=== PATIENT | female | born 1975 | race African-American/Black ===

== ENCOUNTER 2016-12-19 12:25 | Inpatient (IN) | payer SELFPAY ==
[~2016-12-19] VITALS: Ht 162.6 cm; Wt 56.8 kg
--- NOTE | 2016-12-19 12:52 | EKG ---
[facility] [address] [place] [address] Test Date: 2016-12-19 Test Time: 12:42:11 Pat Name: YANETH GUPTA Department: Room: Gender: F Business Agent: : [id number] Requested By: CHANI RUBIO Order Number: [id number] Reading MD: Jose Aguilar Measurements Intervals [place] Rate: 93 P: 71 [place]: 124 QRS: 31 QRSD: 74 T: 39 QT: 398 QTc: 498 Interpretive Statements SINUS RHYTHM PROLONGED QT Electronically Signed On 12-19-2016 13:25:33 CDT by Jose Aguilar
[2016-12-19] MEDS ORDERED: LIDOCAINE/EPI/TETRACAINE TOPICAL GEL 3 ML. TP ONE (13:00)
[2016-12-19] MEDS ORDERED: DIPHTH,PERTUSS(ACELL),TET TOX 0.5 ML DISP.SYRIN. VAX IM ONE (13:00)
[2016-12-19] MEDS ORDERED: IV NORMAL SALINE 1000ML BAG 1,000 ML IV ONE (13:00)
--- NOTE | 2016-12-19 13:40 | RAD ---
Indication seizure, fall, closed head injury. Noncontrast images of the head were obtained. No prior imaging is available. The calvarium appears unremarkable. The visualized paranasal sinuses appear normal. No subdural or epidural hematoma is seen. There is no hemorrhage. There is no mass or midline shift. No acute finding is apparent. IMPRESSION: No acute or significant finding seen on noncontrast CT images of the head PQRS Compliance Statement: One or more of the following individualized dose reduction techniques were utilized for this examination: 1. Automated exposure control 2. Adjustment of the mA and/or kV according to patient size 3. Use of iterative reconstruction technique
[2016-12-19 13:53] LABS: BASO % 1 % (0-3); EOS % 0 % (0-3); HEMATOCRIT 39.6 % (36.0-47.0); HEMOGLOBIN 13.2 g/dL (12.0-15.5); LYMPH # 0.4 x10^3/uL (1.0-4.8); LYMPH % 9 % (24-48); MEAN CORPUSCULAR HEMOGLOBIN 38 pg (25-35); MEAN CORPUSCULAR HGB CONC 34 g/dL (31-37); MEAN CORPUSCULAR VOLUME 112 fL (79-100); MONO % 9 % (0-9); NEUT % 82 % (31-73); PLATELET COUNT 147 x10^3/uL (140-400); RED BLOOD COUNT 3.53 x10^6/uL (3.50-5.40); RED CELL DISTRIBUTION WIDTH 16.7 % (11.5-14.5)
[2016-12-19 14:05] LABS: CALCIUM 8.9 mg/dL (8.5-10.1); CREATININE 0.8 mg/dL (0.6-1.0); GFR 94.7; POTASSIUM 3.5 mmol/L (3.5-5.1)
[2016-12-19 14:09] LABS: ETHANOL < 10 mg/dL (0-10)
[2016-12-19 14:10] LABS: ALBUMIN 4.2 g/dL (3.4-5.0); ALBUMIN/GLOBULIN RATIO 0.9 (1.0-1.7); TOTAL BILIRUBIN 1.5 mg/dL (0.2-1.0); TOTAL PROTEIN 9.1 g/dL (6.4-8.2)
[2016-12-19 14:19] LABS: BILIRUBIN,URINE NEGATIVE (NEG); GLUCOSE,URINE NEGATIVE (NEG); NITRITE,URINE NEGATIVE (NEG); PH,URINE 5.5; PROTEIN,URINE 100 mg/dL (NEG-TRACE); UROBILINOGEN,URINE 0.2 mg/dL (0.2 mg/dL)
[2016-12-19 14:23] LABS: BARBITURATES NEG (NEG); BENZODIAZEPINES NEG (NEG); CANNABINOIDS NEG (NEG); COCAINE NEG (NEG); METHADONE NEG (NEG); OPIATES NEG (NEG); PHENCYCLIDINE NEG (NEG)
[2016-12-19 14:28] LABS: RBC,URINE 0 /HPF (0-2)
[2016-12-19 14:29] LABS: BACTERIA,URINE 0 /HPF (0-FEW); SQUAMOUS EPITHELIAL CELL,UR MOD /LPF
[2016-12-19] MEDS: amLODIPine BESYLATE 5 MG TABLET PO SCH (14:30)
[2016-12-19 15:20] LABS: PLT ESTIMATE ADEQUATE (ADEQUATE)
[2016-12-19 15:21] LABS: ANISOCYTOSIS SLIGHT; POLYCHROMASIA SLIGHT
[2016-12-19] MEDS ORDERED: ONDANSETRON PF 4 MG/2 ML VIAL. IV PRN ×2 (15:30→16:00)
[2016-12-19] MEDS ORDERED: MORPHINE SULFATE 2 MG/ML DISP.SYRIN. IV PRN (15:30)
[2016-12-19] MEDS ORDERED: ACETAMINOPHEN 325 MG TABLET. PO PRN ×2 (15:30→16:00)
[2016-12-19] MEDS ORDERED: AMLO1CAP10 PO (15:32)
[2016-12-19] MEDS ORDERED: hydrALAZINE 20 MG/ML VIAL. IVP PRN (16:00)
[2016-12-19] MEDS ORDERED: traMADol 50 MG TABLET PO PRN (16:00)
[2016-12-19] MEDS: MULTIVIT INFUSN,ADULT 4,VIT K 10 ML, THIAMINE 100 MG, FOLIC ACID 1 MG in IV NORMAL SALI... IV SCH (16:00)
--- NOTE | 2016-12-19 16:03 | PDOC1 ---
History and Physical Date of Admission Date of Admission 12/19/16 Identification/Chief Complaint Chief Complaint seizure Problems: Source Source: Patient History of Present Illness History of Present Illness 41yo F, heavy drinker , was sent by EMS for seizure. Pt drinks at least 1L of hard alcohol, vokha daily. Last time of heavy drinking was 2 days ago, she started to feel back and bl leg spasm, and tremors and then took 2 beers last night. Today, she was meeting with families at parking lot, standing, then suddenly fell backwards, hit head with open wound. She also has stiff body and extremities, foam liquid coming from mouth, for 7mins as per family, then woke up when EMS came, but cont confused for about 50min. Pt didnot bite tongue or lost bm/urine control. She felt ok before the fall, denies palpitation, lightheaded, chest pain. The longest time she was off alcohol was 1 year ago, 4 days, she only had tremors, never had seizure before. THe reason she stop drinking heavily for 2 days is "wants to get life back together). has HTN, but not taking meds for 1month 2/2 non compliance. Past Medical History Cardiovascular: HTN Past Surgical History Past Surgical History: No pertinent history Family History Family History: Hypertension Social History Smoke: No ALCOHOL: heavy Drugs: Marijuana Current Medications Current Medications Current Medications Medications (Trade) Dose Ordered Sig/Ashley Start Time Stop Time Status Last Admin Dose Admin Acetaminophen (Tylenol) 650 mg PRN Q6HRS PRN 12/19/16 16:00 UNV Chlordiazepoxide (Librium) 50 mg TID 12/19/16 21:00 UNV Diazepam (Valium) 5 mg PRN Q5MIN PRN 12/19/16 15:30 Diphtheria/ Tetanus/Acell Pertussis (Boostrix) 0.5 ml ONCE ONCE 12/19/16 13:00 12/19/16 13:14 DC 12/19/16 13:53 0.5 ML Lidocaine/ Epinephrine (Let Topical) 3 ml 1X ONCE 12/19/16 13:00 12/19/16 13:14 DC 12/19/16 13:54 3 ML Morphine Sulfate 2 mg PRN Q2HR PRN 12/19/16 15:30 12/20/16 15:29 Multivitamins 10 ml/Thiamine HCl 100 mg/Folic Acid 1 mg/Sodium Chloride 1,011.2 ml @ 100 mls/ hr DAILY 12/19/16 16:00 12/23/16 19:07 Non-Formulary Medication 1 cap DAILY 12/20/16 09:00 UNV Ondansetron HCl (Zofran) 4 mg PRN Q6HRS PRN 12/19/16 16:00 UNV Sodium Chloride 1,000 ml @ 1,000 mls/hr 1X ONCE 12/19/16 13:00 12/19/16 13:59 DC 12/19/16 13:52 1,000 MLS/HR Tramadol HCl (Ultram) 50 mg PRN Q6HRS PRN 12/19/16 16:00 UNV Allergies Allergies Allergies Coded Allergies Type Severity Reaction Last Updated Verified Penicillins Allergy Intermediate 12/19/16 No ROS Review of System CONSTITUTIONAL: No fever or chills EYES: No recent changes SKIN: No rash or itching CARDIOVASCULAR: No chest pain, syncope, palpitations, or edema RESPIRATORY: No SOB or cough GASTROINTESTINAL: No nausea, vomiting or abdominal pain NEUROLOGICAL: No headaches or weakness ENDOCRINE: No cold or heat intolerance GENITOURINARY: No urgency or frequency of urination MUSCULOSKELETAL: No back pain or joint pain LYMPHATICS: No enlarged lymph nodes PSYCHIATRIC: No anxiety or depression Physical Exam Physical Exam GEN.: No apparent distress. Alert and oriented. HEENT: Head is normocephalic, occipital has a open wound with 2 néstor. NECK: Supple. LUNGS: Clear to auscultation. HEART: RRR, S1, S2 present. Peripheral pulses intact ABDOMEN: Soft, nontender. Positive bowel sounds. EXTREMITIES: Without any cyanosis. bl fingers tremors. NEUROLOGIC: Normal speech, normal tone PSYCHIATRIC: Normal affect, normal mood. SKIN: No ulcerations Vitals Vitals Vital Signs Date Time Temp Pulse Resp B/P (MAP) Pulse Ox O2 Delivery O2 Flow Rate FiO2 12/19/16 14:03 110 145/101 (116) 12/19/16 13:33 28 97 Room Air 12/19/16 12:25 98.6 98.6 Labs Labs Laboratory Tests Test 12/19/16 13:11 12/19/16 13:45 12/19/16 14:02 Bedside Urine HCG, Qualitative Hcg negative (Negative) White Blood Count 5.0 x10^3/uL (4.0-11.0) Red Blood Count 3.53 x10^6/uL (3.50-5.40) Hemoglobin 13.2 g/dL (12.0-15.5) Hematocrit 39.6 % (36.0-47.0) Mean Corpuscular Volume 112 fL (79-100) Mean Corpuscular Hemoglobin 38 pg (25-35) Mean Corpuscular Hemoglobin Concent 34 g/dL (31-37) Red Cell Distribution Width 16.7 % (11.5-14.5) Platelet Count 147 x10^3/uL (140-400) Neutrophils (%) (Auto) 82 % (31-73) Lymphocytes (%) (Auto) 9 % (24-48) Monocytes (%) (Auto) 9 % (0-9) Eosinophils (%) (Auto) 0 % (0-3) Basophils (%) (Auto) 1 % (0-3) Neutrophils # (Auto) 4.0 x10^3uL (1.8-7.7) Lymphocytes # (Auto) 0.4 x10^3/uL (1.0-4.8) Monocytes # (Auto) 0.4 x10^3/uL (0.0-1.1) Eosinophils # (Auto) 0.0 x10^3/uL (0.0-0.7) Basophils # (Auto) 0.0 x10^3/uL (0.0-0.2) Platelet Estimate Adequate (ADEQUATE) Giant Platelets Few Polychromasia Slight Basophilic Stippling Present Anisocytosis Slight Macrocytosis Mod Pappenheimer Bodies Occ Sodium Level 135 mmol/L (136-145) Potassium Level 3.5 mmol/L (3.5-5.1) Chloride Level 92 mmol/L (98-107) Carbon Dioxide Level 23 mmol/L (21-32) Anion Gap 20 (6-14) Blood Urea Nitrogen 7 mg/dL (7-20) Creatinine 0.8 mg/dL (0.6-1.0) Estimated GFR (Cockcroft-Gault) 94.7 BUN/Creatinine Ratio 9 (6-20) Glucose Level 107 mg/dL (70-99) Calcium Level 8.9 mg/dL (8.5-10.1) Total Bilirubin 1.5 mg/dL (0.2-1.0) Aspartate Amino Transf (AST/SGOT) 272 U/L (15-37) Alanine Aminotransferase (ALT/SGPT) 81 U/L (14-59) Alkaline Phosphatase 116 U/L (46-116) Total Protein 9.1 g/dL (6.4-8.2) Albumin 4.2 g/dL (3.4-5.0) Albumin/Globulin Ratio 0.9 (1.0-1.7) Salicylates Level < 2.8 mg/dL (2.8-20.0) Salicylate Last Dose Date Unk Salicylate Last Dose Time Unk Acetaminophen Level < 10 mcg/ml (10-30) Acetaminophen Last Dose Date Unk Acetaminophen Last Dose Time Unk Ethyl Alcohol Level < 10 mg/dL (0-10) Urine Collection Type Unknown Urine Color Yellow Urine Clarity Clear Urine pH 5.5 Urine Specific [place] 1.015 Urine Protein 100 mg/dL (NEG-TRACE) Urine Glucose (UA) Negative mg/dL (NEG) Urine Ketones (Stick) >=80 mg/dL (NEG) Urine Blood Moderate (NEG) Urine Nitrite Negative (NEG) Urine Bilirubin Negative (NEG) Urine Urobilinogen Dipstick 0.2 mg/dL (0.2 mg/dL) Urine Leukocyte Esterase Small (NEG) Urine RBC 0 /HPF (0-2) Urine WBC 11-20 /HPF (0-4) Urine Squamous Epithelial Cells Mod /LPF Urine Bacteria 0 /HPF (0-FEW) Urine Hyaline Casts Moderate /HPF Urine Mucus Mod /LPF Urine Opiates Screen Neg (NEG) Urine Methadone Screen Neg (NEG) Urine Barbiturates Neg (NEG) Urine Phencyclidine Screen Neg (NEG) Urine Amphetamine/Methamphetamine Neg (NEG) Urine Benzodiazepines Screen Neg (NEG) Urine Cocaine Screen Neg (NEG) Urine Cannabinoids Screen Neg (NEG) Urine Ethyl Alcohol Neg (NEG) Laboratory Tests Test 12/19/16 13:11 12/19/16 13:45 12/19/16 14:02 Bedside Urine HCG, Qualitative Hcg negative (Negative) White Blood Count 5.0 x10^3/uL (4.0-11.0) Red Blood Count 3.53 x10^6/uL (3.50-5.40) Hemoglobin 13.2 g/dL (12.0-15.5) Hematocrit 39.6 % (36.0-47.0) Mean Corpuscular Volume 112 fL (79-100) Mean Corpuscular Hemoglobin 38 pg (25-35) Mean Corpuscular Hemoglobin Concent 34 g/dL (31-37) Red Cell Distribution Width 16.7 % (11.5-14.5) Platelet Count 147 x10^3/uL (140-400) Neutrophils (%) (Auto) 82 % (31-73) Lymphocytes (%) (Auto) 9 % (24-48) Monocytes (%) (Auto) 9 % (0-9) Eosinophils (%) (Auto) 0 % (0-3) Basophils (%) (Auto) 1 % (0-3) Neutrophils # (Auto) 4.0 x10^3uL (1.8-7.7) Lymphocytes # (Auto) 0.4 x10^3/uL (1.0-4.8) Monocytes # (Auto) 0.4 x10^3/uL (0.0-1.1) Eosinophils # (Auto) 0.0 x10^3/uL (0.0-0.7) Basophils # (Auto) 0.0 x10^3/uL (0.0-0.2) Platelet Estimate Adequate (ADEQUATE) Giant Platelets Few Polychromasia Slight Basophilic Stippling Present Anisocytosis Slight Macrocytosis Mod Pappenheimer Bodies Occ Sodium Level 135 mmol/L (136-145) Potassium Level 3.5 mmol/L (3.5-5.1) Chloride Level 92 mmol/L (98-107) Carbon Dioxide Level 23 mmol/L (21-32) Anion Gap 20 (6-14) Blood Urea Nitrogen 7 mg/dL (7-20) Creatinine 0.8 mg/dL (0.6-1.0) Estimated GFR (Cockcroft-Gault) 94.7 BUN/Creatinine Ratio 9 (6-20) Glucose Level 107 mg/dL (70-99) Calcium Level 8.9 mg/dL (8.5-10.1) Total Bilirubin 1.5 mg/dL (0.2-1.0) Aspartate Amino Transf (AST/SGOT) 272 U/L (15-37) Alanine Aminotransferase (ALT/SGPT) 81 U/L (14-59) Alkaline Phosphatase 116 U/L (46-116) Total Protein 9.1 g/dL (6.4-8.2) Albumin 4.2 g/dL (3.4-5.0) Albumin/Globulin Ratio 0.9 (1.0-1.7) Salicylates Level < 2.8 mg/dL (2.8-20.0) Salicylate Last Dose Date Unk Salicylate Last Dose Time Unk Acetaminophen Level < 10 mcg/ml (10-30) Acetaminophen Last Dose Date Unk Acetaminophen Last Dose Time Unk Ethyl Alcohol Level < 10 mg/dL (0-10) Urine Collection Type Unknown Urine Color Yellow Urine Clarity Clear Urine pH 5.5 Urine Specific [place] 1.015 Urine Protein 100 mg/dL (NEG-TRACE) Urine Glucose (UA) Negative mg/dL (NEG) Urine Ketones (Stick) >=80 mg/dL (NEG) Urine Blood Moderate (NEG) Urine Nitrite Negative (NEG) Urine Bilirubin Negative (NEG) Urine Urobilinogen Dipstick 0.2 mg/dL (0.2 mg/dL) Urine Leukocyte Esterase Small (NEG) Urine RBC 0 /HPF (0-2) Urine WBC 11-20 /HPF (0-4) Urine Squamous Epithelial Cells Mod /LPF Urine Bacteria 0 /HPF (0-FEW) Urine Hyaline Casts Moderate /HPF Urine Mucus Mod /LPF Urine Opiates Screen Neg (NEG) Urine Methadone Screen Neg (NEG) Urine Barbiturates Neg (NEG) Urine Phencyclidine Screen Neg (NEG) Urine Amphetamine/Methamphetamine Neg (NEG) Urine Benzodiazepines Screen Neg (NEG) Urine Cocaine Screen Neg (NEG) Urine Cannabinoids Screen Neg (NEG) Urine Ethyl Alcohol Neg (NEG) VTE Prophylaxis Ordered VTE Prophylaxis Devices: Yes VTE Pharmacological Prophylaxi: Yes Assessment/Plan Assessment/Plan 1 seizure, likely 2/2 alcohol withdrawl 2. accelerated HTN 3. alcohol hepatitis 4. drug abuse with marijuana, off for 1 month 5. alcoholism 6. open head skin wound post fall plan; neuro consult add librium for withdrawl prevention, valium prn ivf labs daily educated pt and family at bedside resume home HTN meds, hydralazine prn dvt ppx simple wound care JOSE JUAN GUTIÉRREZ MD December 19, 2016 16:03
[2016-12-19] MEDS: chlordiazePOXIDE HCL 25 MG CAPSULE PO SCH ×2 (16:05→21:30)
[2016-12-19 16:08] LABS: MAGNESIUM 1.1 mg/dL (1.8-2.4); PHOSPHORUS 2.2 mg/dL (2.6-4.7)
--- NOTE | 2016-12-19 16:14 | PDOC2 ---
NEUROLOGY CONSULT Date of Admission Date of Admission DATE: 12/19/16 TIME: 16:11 Reason for Consult Reason for Consult: Alcohol-related seizure Referring Physician Referring Physician: Dr. Coello Source Source: Chart review, Patient History of Present Illness History of Present Illness The patient is a 41-year-old right-handed female who was in a parking lot talking to her family when she fell backwards striking her head and she had at least a 7 minute seizure. She drinks alcohol heavily but stopped it 2 days ago because she is trying to get her life back together. Actually, she had 2 beers yesterday because she was having the shakes. There is no prior history of seizure, alcohol withdrawal syndrome, stroke, or head injury. Family History Family History: No pertinent hx Social History Social History Stopped drinking 2 days ago, occasional marijuana Current Medications Current Medications Current Medications Diphtheria/ Tetanus/Acell Pertussis (Boostrix) 0.5 ml ONCE ONCE VAX IM Last administered on 12/19/16 13:53; Start 12/19/16 at 13:00; Stop 12/19/16 at 13:14; Status DC Lidocaine/ Epinephrine (Let Topical) 3 ml 1X ONCE TP Last administered on 13:54; Start 12/19/16 at 13:00; Stop 12/19/16 at 13:14; Status DC Diazepam (Valium) 5 mg 1X ONCE IV Last administered on 12/19/16 13:50; Start 12/19/16 at 13:00; Stop 12/19/16 at 13:14; Status DC Sodium Chloride 1,000 ml @ 1,000 mls/hr 1X ONCE IV Last administered on 13:52; Start 12/19/16 at 13:00; Stop 12/19/16 at 13:59; Status DC Diazepam (Valium) 5 mg PRN Q5MIN PRN IV COMM Last administered on 12/19/16 15: 24; Start 12/19/16 at 13:15 Ondansetron HCl (Zofran) 4 mg PRN Q8HRS PRN IV NAUSEA/VOMITING; Start 12/19/16 at 15:30; Stop 12/20/16 at 15:29 Morphine Sulfate 2 mg PRN Q2HR PRN IV PAIN; Start 12/19/16 at 15:30; Stop at 15:29 Acetaminophen (Tylenol) 650 mg PRN Q4HRS PRN PO FEVER; Start 12/19/16 at 15:30; Stop 12/20/16 at 15:29 Multivitamins 10 ml/Thiamine HCl 100 mg/Folic Acid 1 mg/Sodium Chloride 1,011.2 ml @ 100 mls/ hr DAILY IV ; Start 12/19/16 at 16:00; Stop 12/23/16 at 19:07 Diazepam (Valium) 5 mg PRN Q5MIN PRN IV COMM; Start 12/19/16 at 15:30 Non-Formulary Medication 1 cap DAILY PO ; Start 12/20/16 at 09:00; Stop 12/20/16 at 09:00; Status DC Chlordiazepoxide (Librium) 50 mg TID PO ; Start 12/19/16 at 16:05 Acetaminophen (Tylenol) 650 mg PRN Q6HRS PRN PO FEVER; Start 12/19/16 at 16:00 Ondansetron HCl (Zofran) 4 mg PRN Q6HRS PRN IV NAUSEA/VOMITING; Start 12/19/16 at 16:00 Tramadol HCl (Ultram) 50 mg PRN Q6HRS PRN PO PAIN; Start 12/19/16 at 16:00 Amlodipine Besylate (Norvasc) 5 mg DAILY PO Last administered on 12/19/16t 14:30 ; Start 12/19/16 at 14:30 Enoxaparin Sodium (Lovenox 40mg Syringe) 40 mg DAILY08 SQ ; Start 12/20/16 at 08: 00 Hydralazine HCl (Apresoline) 10 mg PRN Q4HRS PRN IVP ELEVATED BP, SEE COMMENTS ; Start 12/19/16 at 16:00 Lisinopril (Prinivil) 20 mg DAILY PO ; Start 12/19/16 at 16:30 Active Scripts Active Reported Amlodipine-Benazepril 5-20 Mg (Amlodipine Besylate/Benazepril) 1 Each Capsule 1 Cap PO DAILY Allergies Allergies: Coded Allergies: Penicillins (Unverified Allergy, Intermediate, 12/19/16) ROS Review of System Patient denies fevers, chills, weight loss, dyspnea, angina, abdominal pain, change in bowels, or dysuria. 14 point review of systems is negative. Physical Exam Physical Examination PHYSICAL EXAMINATION: Vital signs: see above. General appearance is normal and in no acute distress. HEENT: Normocephalic. Scalp laceration, occiput. Eyes, nose, ears, and throat are unremarkable. Neck is supple. No lymphadenopathy. No bruits are heard over the carotid artery. No crepitus. NEUROLOGICAL EXAMINATION: Mental Status Examination: Alert. Oriented to time, place, and person. Answers questions and follows commends. Pupils are equal round and reactive to light and accommodation. Funduscopic exam: No papilledema. Extraocular movements are intact. Visual field exam shows no defect on the direct confrontation. No motor or sensory deficits on the facial exam. Uvula in the midline and the soft palate elevated symmetrically. No deviation of the tongue to any direction. Gross hearing is normal. Shoulder shrug normal. Muscle tone is normal. Muscle strength is 5. There is mild tremulousness. Deep tendon reflexes are 2+ all around. Plantar reflex is with flexion response bilaterally. [id number] test performance is accurate. Tandem walk test is accurate. Alternative movements are accurate. Romberg test is negative. Gait is normal. Sensory exam shows no deficits. No cerebellar signs are elicited. Vitals VITALS Vital Signs Date Time Temp Pulse Resp B/P (MAP) Pulse Ox O2 Delivery O2 Flow Rate FiO2 12/19/16 14:30 104 133/89 12/19/16 13:33 28 97 Room Air 12/19/16 12:25 98.6 98.6 Labs Labs Laboratory Tests Test 12/19/16 13:11 12/19/16 13:45 12/19/16 14:02 Bedside Urine HCG, Qualitative Hcg negative (Negative) White Blood Count 5.0 x10^3/uL (4.0-11.0) Red Blood Count 3.53 x10^6/uL (3.50-5.40) Hemoglobin 13.2 g/dL (12.0-15.5) Hematocrit 39.6 % (36.0-47.0) Mean Corpuscular Volume 112 fL (79-100) Mean Corpuscular Hemoglobin 38 pg (25-35) Mean Corpuscular Hemoglobin Concent 34 g/dL (31-37) Red Cell Distribution Width 16.7 % (11.5-14.5) Platelet Count 147 x10^3/uL (140-400) Neutrophils (%) (Auto) 82 % (31-73) Lymphocytes (%) (Auto) 9 % (24-48) Monocytes (%) (Auto) 9 % (0-9) Eosinophils (%) (Auto) 0 % (0-3) Basophils (%) (Auto) 1 % (0-3) Neutrophils # (Auto) 4.0 x10^3uL (1.8-7.7) Lymphocytes # (Auto) 0.4 x10^3/uL (1.0-4.8) Monocytes # (Auto) 0.4 x10^3/uL (0.0-1.1) Eosinophils # (Auto) 0.0 x10^3/uL (0.0-0.7) Basophils # (Auto) 0.0 x10^3/uL (0.0-0.2) Platelet Estimate Adequate (ADEQUATE) Giant Platelets Few Polychromasia Slight Basophilic Stippling Present Anisocytosis Slight Macrocytosis Mod Pappenheimer Bodies Occ Sodium Level 135 mmol/L (136-145) Potassium Level 3.5 mmol/L (3.5-5.1) Chloride Level 92 mmol/L (98-107) Carbon Dioxide Level 23 mmol/L (21-32) Anion Gap 20 (6-14) Blood Urea Nitrogen 7 mg/dL (7-20) Creatinine 0.8 mg/dL (0.6-1.0) Estimated GFR (Cockcroft-Gault) 94.7 BUN/Creatinine Ratio 9 (6-20) Glucose Level 107 mg/dL (70-99) Calcium Level 8.9 mg/dL (8.5-10.1) Phosphorus Level 2.2 mg/dL (2.6-4.7) Magnesium Level 1.1 mg/dL (1.8-2.4) Total Bilirubin 1.5 mg/dL (0.2-1.0) Aspartate Amino Transf (AST/SGOT) 272 U/L (15-37) Alanine Aminotransferase (ALT/SGPT) 81 U/L (14-59) Alkaline Phosphatase 116 U/L (46-116) Total Protein 9.1 g/dL (6.4-8.2) Albumin 4.2 g/dL (3.4-5.0) Albumin/Globulin Ratio 0.9 (1.0-1.7) Salicylates Level < 2.8 mg/dL (2.8-20.0) Salicylate Last Dose Date Unk Salicylate Last Dose Time Unk Acetaminophen Level < 10 mcg/ml (10-30) Acetaminophen Last Dose Date Unk Acetaminophen Last Dose Time Unk Ethyl Alcohol Level < 10 mg/dL (0-10) Urine Collection Type Unknown Urine Color Yellow Urine Clarity Clear Urine pH 5.5 Urine Specific [place] 1.015 Urine Protein 100 mg/dL (NEG-TRACE) Urine Glucose (UA) Negative mg/dL (NEG) Urine Ketones (Stick) >=80 mg/dL (NEG) Urine Blood Moderate (NEG) Urine Nitrite Negative (NEG) Urine Bilirubin Negative (NEG) Urine Urobilinogen Dipstick 0.2 mg/dL (0.2 mg/dL) Urine Leukocyte Esterase Small (NEG) Urine RBC 0 /HPF (0-2) Urine WBC 11-20 /HPF (0-4) Urine Squamous Epithelial Cells Mod /LPF Urine Bacteria 0 /HPF (0-FEW) Urine Hyaline Casts Moderate /HPF Urine Mucus Mod /LPF Urine Opiates Screen Neg (NEG) Urine Methadone Screen Neg (NEG) Urine Barbiturates Neg (NEG) Urine Phencyclidine Screen Neg (NEG) Urine Amphetamine/Methamphetamine Neg (NEG) Urine Benzodiazepines Screen Neg (NEG) Urine Cocaine Screen Neg (NEG) Urine Cannabinoids Screen Neg (NEG) Urine Ethyl Alcohol Neg (NEG) Laboratory Tests Test 12/19/16 13:11 12/19/16 13:45 12/19/16 14:02 Bedside Urine HCG, Qualitative Hcg negative (Negative) White Blood Count 5.0 x10^3/uL (4.0-11.0) Red Blood Count 3.53 x10^6/uL (3.50-5.40) Hemoglobin 13.2 g/dL (12.0-15.5) Hematocrit 39.6 % (36.0-47.0) Mean Corpuscular Volume 112 fL (79-100) Mean Corpuscular Hemoglobin 38 pg (25-35) Mean Corpuscular Hemoglobin Concent 34 g/dL (31-37) Red Cell Distribution Width 16.7 % (11.5-14.5) Platelet Count 147 x10^3/uL (140-400) Neutrophils (%) (Auto) 82 % (31-73) Lymphocytes (%) (Auto) 9 % (24-48) Monocytes (%) (Auto) 9 % (0-9) Eosinophils (%) (Auto) 0 % (0-3) Basophils (%) (Auto) 1 % (0-3) Neutrophils # (Auto) 4.0 x10^3uL (1.8-7.7) Lymphocytes # (Auto) 0.4 x10^3/uL (1.0-4.8) Monocytes # (Auto) 0.4 x10^3/uL (0.0-1.1) Eosinophils # (Auto) 0.0 x10^3/uL (0.0-0.7) Basophils # (Auto) 0.0 x10^3/uL (0.0-0.2) Platelet Estimate Adequate (ADEQUATE) Giant Platelets Few Polychromasia Slight Basophilic Stippling Present Anisocytosis Slight Macrocytosis Mod Pappenheimer Bodies Occ Sodium Level 135 mmol/L (136-145) Potassium Level 3.5 mmol/L (3.5-5.1) Chloride Level 92 mmol/L (98-107) Carbon Dioxide Level 23 mmol/L (21-32) Anion Gap 20 (6-14) Blood Urea Nitrogen 7 mg/dL (7-20) Creatinine 0.8 mg/dL (0.6-1.0) Estimated GFR (Cockcroft-Gault) 94.7 BUN/Creatinine Ratio 9 (6-20) Glucose Level 107 mg/dL (70-99) Calcium Level 8.9 mg/dL (8.5-10.1) Phosphorus Level 2.2 mg/dL (2.6-4.7) Magnesium Level 1.1 mg/dL (1.8-2.4) Total Bilirubin 1.5 mg/dL (0.2-1.0) Aspartate Amino Transf (AST/SGOT) 272 U/L (15-37) Alanine Aminotransferase (ALT/SGPT) 81 U/L (14-59) Alkaline Phosphatase 116 U/L (46-116) Total Protein 9.1 g/dL (6.4-8.2) Albumin 4.2 g/dL (3.4-5.0) Albumin/Globulin Ratio 0.9 (1.0-1.7) Salicylates Level < 2.8 mg/dL (2.8-20.0) Salicylate Last Dose Date Unk Salicylate Last Dose Time Unk Acetaminophen Level < 10 mcg/ml (10-30) Acetaminophen Last Dose Date Unk Acetaminophen Last Dose Time Unk Ethyl Alcohol Level < 10 mg/dL (0-10) Urine Collection Type Unknown Urine Color Yellow Urine Clarity Clear Urine pH 5.5 Urine Specific [place] 1.015 Urine Protein 100 mg/dL (NEG-TRACE) Urine Glucose (UA) Negative mg/dL (NEG) Urine Ketones (Stick) >=80 mg/dL (NEG) Urine Blood Moderate (NEG) Urine Nitrite Negative (NEG) Urine Bilirubin Negative (NEG) Urine Urobilinogen Dipstick 0.2 mg/dL (0.2 mg/dL) Urine Leukocyte Esterase Small (NEG) Urine RBC 0 /HPF (0-2) Urine WBC 11-20 /HPF (0-4) Urine Squamous Epithelial Cells Mod /LPF Urine Bacteria 0 /HPF (0-FEW) Urine Hyaline Casts Moderate /HPF Urine Mucus Mod /LPF Urine Opiates Screen Neg (NEG) Urine Methadone Screen Neg (NEG) Urine Barbiturates Neg (NEG) Urine Phencyclidine Screen Neg (NEG) Urine Amphetamine/Methamphetamine Neg (NEG) Urine Benzodiazepines Screen Neg (NEG) Urine Cocaine Screen Neg (NEG) Urine Cannabinoids Screen Neg (NEG) Urine Ethyl Alcohol Neg (NEG) Images Images CT head: Noncontrast images of the head were obtained. No prior imaging is available. The calvarium appears unremarkable. The visualized paranasal sinuses appear normal. No subdural or epidural hematoma is seen. There is no hemorrhage. There is no mass or midline shift. No acute finding is apparent. IMPRESSION: No acute or significant finding seen on noncontrast CT images of the head Assessment/Plan Assessment/Plan Impression: Alcohol-related seizure Scalp laceration Recommendation: Agree with your management. EEG and MRI would not private branch exchange installer given that this is obviously a provoked seizure. Discussed seizure precautions with patient, including no driving for 6 months seizure-free. Thank you for letting me help with the patient's care BELGICA BARKSDALE MD December 19, 2016 16:14
[2016-12-19] MEDS ORDERED: MAGNESIUM SULFATE 4GM 100 ML IV ONE (16:15)
[2016-12-19] MEDS: LISINOPRIL 20 MG TABLET PO SCH (16:30)
[2016-12-19 16:33] VITALS: BP 130/90
[2016-12-19 16:34] VITALS: BP 130/90
--- NOTE | 2016-12-19 16:52 | PHYS DOC ---
Past Medical History Past Medical History: Hypertension Past Surgical History: Hysterectomy Alcohol Use: Heavy Drug Use: None Adult General Chief Complaint Chief Complaint: SEIZURE HPI HPI Patient is a 41 year old female who presents with seizure. The patient states she has history of heavy alcohol use, consuming at least one half bottle of hard liquor daily. Last drink was 2 days ago. Just prior to arrival she was with family in a gravel parking lot, fell to the ground, experienced 3-5 minute generalized tonic-clonic clonic seizure. Was postictal after the seizure ended. Denies bowel or bladder incontinence, denies tongue biting. Complains of headache, denies neck pain. Denies any previous attempts to cut back on alcohol , no previous withdrawal symptoms. Denies use of street drugs. She is visiting from [place] for a family reunion. Has medical history of hypertension. Review of Systems Review of Systems Constitutional: Denies fever or chills Eyes: Denies change in visual acuity HENT: Denies nasal congestion or sore throat Respiratory: Denies cough or shortness of breath Cardiovascular: Denies chest pain or edema GI: Denies abdominal pain, nausea, vomiting, or diarrhea : Denies dysuria or hematuria Musculoskeletal: Denies back pain or joint pain Integument: Denies rash or skin lesions Neurologic: Reports seizure & headache. Denies focal weakness or sensory changes Current Medications Current Medications Current Medications Medications (Trade) Dose Ordered Sig/Ashley Start Time Stop Time Status Last Admin Dose Admin Diazepam (Valium) 5 mg PRN Q5MIN PRN 12/19/16 13:15 12/19/16 15:24 5 MG Diphtheria/ Tetanus/Acell Pertussis (Boostrix) 0.5 ml ONCE ONCE 12/19/16 13:00 12/19/16 13:14 DC 12/19/16 13:53 0.5 ML Lidocaine/ Epinephrine (Let Topical) 3 ml 1X ONCE 12/19/16 13:00 12/19/16 13:14 DC 12/19/16 13:54 3 ML Sodium Chloride 1,000 ml @ 1,000 mls/hr 1X ONCE 12/19/16 13:00 12/19/16 13:59 DC 12/19/16 13:52 1,000 MLS/HR Allergies Allergies Allergies Coded Allergies Type Severity Reaction Last Updated Verified Penicillins Allergy Intermediate 12/19/16 No Physical Exam Physical Exam Constitutional: Well developed, well nourished, no acute distress, non-toxic appearance. Tremulous HENT: Normocephalic, 3 cm laceration to occiput, bilateral external ears normal , oropharynx moist, nose normal. Eyes: PERRLA, EOMI, conjunctiva normal, no discharge. Neck: supple, no stridor. No midline c-spine tenderness. Cardiovascular: RRR, no murmurs, no edema. Lungs & Thorax: LCTAB, no wheezing, no respiratory distress. Abdomen: soft, nontender, nondistended. Skin: Warm, dry, no erythema, no rash. Back: No spinal tenderness or step offs. Extremities: No deformity or tenderness, no edema. Neurologic: Alert and oriented X 3, CN2-12 grossly intact, symmetric strength/ sensation to UE & LE, no focal deficits noted. Psychologic: Affect normal, judgement normal, mood normal. Current Patient Data Vital Signs Vital Signs Date Time Temp Pulse Resp B/P (MAP) Pulse Ox O2 Delivery O2 Flow Rate FiO2 12/19/16 14:03 110 145/101 (116) 12/19/16 13:33 28 97 Room Air 12/19/16 12:25 98.6 98.6 Lab Values Laboratory Tests Test 12/19/16 13:11 12/19/16 13:45 12/19/16 14:02 POC Urine HCG, Qualitative Hcg negative (Negative) White Blood Count 5.0 x10^3/uL (4.0-11.0) Red Blood Count 3.53 x10^6/uL (3.50-5.40) Hemoglobin 13.2 g/dL (12.0-15.5) Hematocrit 39.6 % (36.0-47.0) Mean Corpuscular Volume 112 fL (79-100) H Mean Corpuscular Hemoglobin 38 pg (25-35) H Mean Corpuscular Hemoglobin Concent 34 g/dL (31-37) Red Cell Distribution Width 16.7 % (11.5-14.5) H Platelet Count 147 x10^3/uL (140-400) Neutrophils (%) (Auto) 82 % (31-73) H Lymphocytes (%) (Auto) 9 % (24-48) L Monocytes (%) (Auto) 9 % (0-9) Eosinophils (%) (Auto) 0 % (0-3) Basophils (%) (Auto) 1 % (0-3) Neutrophils # (Auto) 4.0 x10^3uL (1.8-7.7) Lymphocytes # (Auto) 0.4 x10^3/uL (1.0-4.8) L Monocytes # (Auto) 0.4 x10^3/uL (0.0-1.1) Eosinophils # (Auto) 0.0 x10^3/uL (0.0-0.7) Basophils # (Auto) 0.0 x10^3/uL (0.0-0.2) Platelet Estimate Adequate (ADEQUATE) Giant Platelets Few Polychromasia Slight Basophilic Stippling Present Anisocytosis Slight Macrocytosis Mod Pappenheimer Bodies Occ Sodium Level 135 mmol/L (136-145) L Potassium Level 3.5 mmol/L (3.5-5.1) Chloride Level 92 mmol/L (98-107) L Carbon Dioxide Level 23 mmol/L (21-32) Anion Gap 20 (6-14) H Blood Urea Nitrogen 7 mg/dL (7-20) Creatinine 0.8 mg/dL (0.6-1.0) Estimated GFR (Cockcroft-Gault) 94.7 BUN/Creatinine Ratio 9 (6-20) Glucose Level 107 mg/dL (70-99) H Calcium Level 8.9 mg/dL (8.5-10.1) Phosphorus Level 2.2 mg/dL (2.6-4.7) L Magnesium Level 1.1 mg/dL (1.8-2.4) L Total Bilirubin 1.5 mg/dL (0.2-1.0) H Aspartate Amino Transferase (AST) 272 U/L (15-37) H Alanine Aminotransferase (ALT) 81 U/L (14-59) H Alkaline Phosphatase 116 U/L (46-116) Total Protein 9.1 g/dL (6.4-8.2) H Albumin 4.2 g/dL (3.4-5.0) Albumin/Globulin Ratio 0.9 (1.0-1.7) L Salicylates Level < 2.8 mg/dL (2.8-20.0) L Salicylate Last Dose Date Unk Salicylate Last Dose Time Unk Acetaminophen Level < 10 mcg/ml (10-30) L Acetaminophen Last Dose Date Unk Acetaminophen Last Dose Time Unk Ethyl Alcohol Level < 10 mg/dL (0-10) Urine Collection Type Unknown Urine Color Yellow Urine Clarity Clear Urine pH 5.5 Urine Specific [place] 1.015 Urine Protein 100 mg/dL (NEG-TRACE) Urine Glucose (UA) Negative mg/dL (NEG) Urine Ketones (Stick) >=80 mg/dL (NEG) Urine Blood Moderate (NEG) Urine Nitrite Negative (NEG) Urine Bilirubin Negative (NEG) Urine Urobilinogen Dipstick 0.2 mg/dL (0.2 mg/dL) Urine Leukocyte Esterase Small (NEG) Urine RBC 0 /HPF (0-2) Urine WBC 11-20 /HPF (0-4) Urine Squamous Epithelial Cells Mod /LPF Urine Bacteria 0 /HPF (0-FEW) Urine Hyaline Casts Moderate /HPF Urine Mucus Mod /LPF Urine Opiates Screen Neg (NEG) Urine Methadone Screen Neg (NEG) Urine Barbiturates Neg (NEG) Urine Phencyclidine Screen Neg (NEG) Urine Amphetamine/Methamphetamine Neg (NEG) Urine Benzodiazepines Screen Neg (NEG) Urine Cocaine Screen Neg (NEG) Urine Cannabinoids Screen Neg (NEG) Urine Ethyl Alcohol Neg (NEG) Laboratory Tests 12/19/16 13:45 Laboratory Tests 12/19/16 13:45 EKG EKG interpreted by me: NSR rate 93, no acute ST/T wave changes, QTc prolonged 498 ms, no ectopy.[] Radiology/Procedures Radiology/Procedures PROCEDURE: CT HEAD WO CONTRAST Indication seizure, fall, closed head injury. Noncontrast images of the head were obtained. No prior imaging is available. The calvarium appears unremarkable. The visualized paranasal sinuses appear normal. No subdural or epidural hematoma is seen. There is no hemorrhage. There is no mass or midline shift. No acute finding is apparent. IMPRESSION: No acute or significant finding seen on noncontrast CT images of the head PQRS Compliance Statement: One or more of the following individualized dose reduction techniques were utilized for this examination: 1. Automated exposure control 2. Adjustment of the mA and/or kV according to patient size 3. Use of iterative reconstruction technique DICTATED and SIGNED BY: MELISSA CATALAN MD DATE: 12/19/16 2933[] Course & Med Decision Making Course & Med Decision Making Pertinent Labs and Imaging studies reviewed. (See chart for details) The patient presents with seizure, history suggests alcohol withdrawal seizure. Normal neurologic exam here. She is tremulous with mild tachycardia and hypertension. Gave Valium and IV fluids. CT unremarkable for acute injury. Labs as above. Laceration repair by me. Tetanus updated. Recommend admission to the hospital for ongoing management of alcohol withdrawal. The patient agrees with plan of care. Discussed with Dr. Coello who agrees to admit to inpatient status. Patient admitted in stable condition with no further seizure activity in the emergency department. Dragon Disclaimer Dragon Disclaimer This electronic medical record was generated, in whole or in part, using a voice recognition dictation system. Departure Departure Impression: Primary Impression: Alcohol withdrawal seizure Additional Impressions: Transaminitis Tachycardia Hypertension Disposition: 09 ADMITTED INPATIENT Condition: STABLE Problem Qualifiers CHANI RUBIO MD December 19, 2016 16:52
[2016-12-19 19:05] VITALS: BP 144/93
--- NOTE | 2016-12-19 19:39 | ACF ---
Admission Forms Criteria ALCOHOL AND PSYCHOACTIVE SUBSTANCE WITHDRAWAL Clinical Indications for Inpatient Care (Place ' X' for any and all applicable criteria): Ongoing inpatient care may be indicated for substance withdrawal[B][C] with ANY ONE of the following(1)(2)(3)(4)(21): [ ]I. Delirium due to alcohol or sedative[D] withdrawal is present. [ ]II. Marked signs of withdrawal are present as indicated by ANY ONE of the following(15)(22)(23) [ ]a) Heart rate greater than 120 beats per minute is present. [ ]b) Severe vomiting is present (eg, precludes maintenance of oral hydration). [ ]c) Grossly visible tremor is present. [ ]d) Profuse perspiration is present. [ ]e) Temperature greater than 101 degrees F (38.3 degrees C) is present. [ ]f) Other signs of severe withdrawal are present (eg, Altered mental status ) [ ]g) Severe withdrawal identified by standardized assessment score[A] [ ]III. Signs of withdrawal that require continued inpatient treatment as indicated by ANY ONE of the following(15)(22)(23): [ ]a) Inadequate response to pharmacotherapy (eg, benzodiazepines) [ ]b) Outpatient or lower level of care is not feasible or appropriate (eg, unavailable or inappropriate to patient condition or treatment history). [X]IV. Withdrawal signs with high-risk indicator are present as manifested by ALL of the following[A](15)(22)(23) [X]a) Signs of withdrawal are present as indicated by ANY ONE of the following: [X]i. Tachycardia is present. [ ]ii. Nausea or vomiting is present. [ ]iii. Tremor is present. [ ]iv. Increased perspiration is present. [ ]v. Other signs of withdrawal are present. [ ]vi. Withdrawal identified by standardized assessment score [A] [X]b) Elevated risk due to historical or comorbid factor is present as indicated by ANY ONE of the following: [ ]i. History of delirium due to withdrawal is present. [ ]ii. History of seizures due to withdrawal is present.[E] [X]iii. Intrinsic seizure disorder (epilepsy) is present. [ ]iv. Patient is . [ ]v. Other significant medical history (eg, severe cardiac disease) is present, which is assessed to be at risk for destabilization due to withdrawal. [ ]V. Serious electrolyte abnormalities (eg, hyponatremia, hypokalemia, hypophosphatemia) requiring correction performable only in inpatient setting(6)(25) [ ]. Severe hypoglycemia requiring glucose infusions performable only in inpatient setting(6) [ ]VII. Drug toxicity or instability, such as Altered mental status, respiratory depression, or arrhythmias, that requires inpatient care [ ]VIII. Danger judged unmanageable at lower level of care because of ANY ONE of the following [ ]a) Danger to self [ ]b) Danger to others [ ]c) Grave disability (eg, inability to perform self-care necessary at lower level of care) The original [facility] content created by [facility] has been revised. The portions of the content which have been revised are identified through the use of italic text or in bold. [facility] has neither reviewed nor approved the modified material. All other unmodified content is copyright [facility]. Please see references footnoted in the original [facility] Admission Criteria Met?: Yes SHIRLENE LEONG December 19, 2016 19:39
[2016-12-19] MEDS: POTASSIUM PHOSPHATE DIBASIC 10 MMOL in IV NORMAL SALINE 100ML 100 ML IV SCH ×2 (21:30→21:34)
[2016-12-19 23:05] VITALS: BP 118/86
[2016-12-20 03:05] VITALS: BP 115/80
[2016-12-20 03:44] LABS: BASO % 0 % (0-3); EOS % 0 % (0-3); HEMATOCRIT 35.3 % (36.0-47.0); HEMOGLOBIN 11.9 g/dL (12.0-15.5); LYMPH # 1.1 x10^3/uL (1.0-4.8); LYMPH % 21 % (24-48); MEAN CORPUSCULAR HEMOGLOBIN 37 pg (25-35); MEAN CORPUSCULAR HGB CONC 34 g/dL (31-37); MEAN CORPUSCULAR VOLUME 111 fL (79-100); MONO % 8 % (0-9); NEUT % 70 % (31-73); PLATELET COUNT 133 x10^3/uL (140-400); RED BLOOD COUNT 3.17 x10^6/uL (3.50-5.40); RED CELL DISTRIBUTION WIDTH 16.5 % (11.5-14.5); WHITE BLOOD COUNT 5.2 x10^3/uL (4.0-11.0)
[2016-12-20 04:13] LABS: ALBUMIN 3.7 g/dL (3.4-5.0); ALBUMIN/GLOBULIN RATIO 0.9 (1.0-1.7); CALCIUM 8.2 mg/dL (8.5-10.1); CREATININE 0.8 mg/dL (0.6-1.0); GFR 94.7; POTASSIUM 3.1 mmol/L (3.5-5.1); TOTAL BILIRUBIN 1.1 mg/dL (0.2-1.0); TOTAL PROTEIN 7.9 g/dL (6.4-8.2)
[2016-12-20 04:15] LABS: MAGNESIUM 2.5 mg/dL (1.8-2.4); PHOSPHORUS 1.9 mg/dL (2.6-4.7)
[2016-12-20 07:05] VITALS: BP 118/90
[2016-12-20] MEDS ORDERED: ENOXAPARIN 40 MG/0.4 ML SYRINGE. SQ SCH (08:00)
[2016-12-20] MEDS: amLODIPine BESYLATE 5 MG TABLET PO SCH (09:00)
[2016-12-20] MEDS ORDERED: [UNRECOGNIZED DRUG - OTHER] PO SCH (09:00)
[2016-12-20] MEDS ORDERED: AMLODIPINE BESYLATE PO SCH (09:00)
[2016-12-20] MEDS ORDERED: BENAZEPRIL PO SCH (09:00)
[2016-12-20] MEDS ORDERED: ALPRAZolam 0.25 MG TABLET PO PRN (09:15)
[2016-12-20] MEDS: MULTIVIT INFUSN,ADULT 4,VIT K 10 ML, THIAMINE 100 MG, FOLIC ACID 1 MG in IV NORMAL SALI... IV SCH (10:14)
[2016-12-20] MEDS: LISINOPRIL 20 MG TABLET PO SCH (10:15)
[2016-12-20] MEDS: chlordiazePOXIDE HCL 25 MG CAPSULE PO SCH (10:16)
[2016-12-20 10:45] VITALS: BP 133/90
--- NOTE | 2016-12-20 11:08 | PDOC3 ---
Discharge Summary Visit Information Date of Admission: December 19, 2016 Date of Discharge: December 20, 2016 Admitting Diagnosis Comment: Alcohol withdrawal sz Final Diagnosis Problems Medical Problems: (1) Alcohol withdrawal seizure Status: Acute (2) Hypertension Status: Acute (3) Tachycardia Status: Acute (4) Transaminitis Status: Acute Brief Hospital Course Allergies Allergies Coded Allergies Type Severity Reaction Last Updated Verified Penicillins Allergy Intermediate 12/20/16 Yes Vital Signs Vital Signs Date Time Temp Pulse Resp B/P (MAP) Pulse Ox O2 Delivery O2 Flow Rate FiO2 12/20/16 10:45 98.1 97 18 133/90 (104) 93 Room Air 98.1 Lab Results Laboratory Tests Test 12/19/16 13:11 12/19/16 13:45 12/19/16 14:02 12/20/16 02:45 Bedside Urine HCG, Qualitative Hcg negative (Negative) White Blood Count 5.0 x10^3/uL (4.0-11.0) 5.2 x10^3/uL (4.0-11.0) Red Blood Count 3.53 x10^6/uL (3.50-5.40) 3.17 x10^6/uL (3.50-5.40) Hemoglobin 13.2 g/dL (12.0-15.5) 11.9 g/dL (12.0-15.5) Hematocrit 39.6 % (36.0-47.0) 35.3 % (36.0-47.0) Mean Corpuscular Volume 112 fL (79-100) 111 fL (79-100) Mean Corpuscular Hemoglobin 38 pg (25-35) 37 pg (25-35) Mean Corpuscular Hemoglobin Concent 34 g/dL (31-37) 34 g/dL (31-37) Red Cell Distribution Width 16.7 % (11.5-14.5) 16.5 % (11.5-14.5) Platelet Count 147 x10^3/uL (140-400) 133 x10^3/uL (140-400) Neutrophils (%) (Auto) 82 % (31-73) 70 % (31-73) Lymphocytes (%) (Auto) 9 % (24-48) 21 % (24-48) Monocytes (%) (Auto) 9 % (0-9) 8 % (0-9) Eosinophils (%) (Auto) 0 % (0-3) 0 % (0-3) Basophils (%) (Auto) 1 % (0-3) 0 % (0-3) Neutrophils # (Auto) 4.0 x10^3uL (1.8-7.7) 3.6 x10^3uL (1.8-7.7) Lymphocytes # (Auto) 0.4 x10^3/uL (1.0-4.8) 1.1 x10^3/uL (1.0-4.8) Monocytes # (Auto) 0.4 x10^3/uL (0.0-1.1) 0.4 x10^3/uL (0.0-1.1) Eosinophils # (Auto) 0.0 x10^3/uL (0.0-0.7) 0.0 x10^3/uL (0.0-0.7) Basophils # (Auto) 0.0 x10^3/uL (0.0-0.2) 0.0 x10^3/uL (0.0-0.2) Platelet Estimate Adequate (ADEQUATE) Giant Platelets Few Polychromasia Slight Basophilic Stippling Present Anisocytosis Slight Macrocytosis Mod Pappenheimer Bodies Occ Sodium Level 135 mmol/L (136-145) 137 mmol/L (136-145) Potassium Level 3.5 mmol/L (3.5-5.1) 3.1 mmol/L (3.5-5.1) Chloride Level 92 mmol/L (98-107) 98 mmol/L (98-107) Carbon Dioxide Level 23 mmol/L (21-32) 28 mmol/L (21-32) Anion Gap 20 (6-14) 11 (6-14) Blood Urea Nitrogen 7 mg/dL (7-20) 8 mg/dL (7-20) Creatinine 0.8 mg/dL (0.6-1.0) 0.8 mg/dL (0.6-1.0) Estimated GFR (Cockcroft-Gault) 94.7 94.7 BUN/Creatinine Ratio 9 (6-20) 10 (6-20) Glucose Level 107 mg/dL (70-99) 93 mg/dL (70-99) Calcium Level 8.9 mg/dL (8.5-10.1) 8.2 mg/dL (8.5-10.1) Phosphorus Level 2.2 mg/dL (2.6-4.7) 1.9 mg/dL (2.6-4.7) Magnesium Level 1.1 mg/dL (1.8-2.4) 2.5 mg/dL (1.8-2.4) Total Bilirubin 1.5 mg/dL (0.2-1.0) 1.1 mg/dL (0.2-1.0) Aspartate Amino Transf (AST/SGOT) 272 U/L (15-37) 223 U/L (15-37) Alanine Aminotransferase (ALT/SGPT) 81 U/L (14-59) 62 U/L (14-59) Alkaline Phosphatase 116 U/L (46-116) 95 U/L (46-116) Total Protein 9.1 g/dL (6.4-8.2) 7.9 g/dL (6.4-8.2) Albumin 4.2 g/dL (3.4-5.0) 3.7 g/dL (3.4-5.0) Albumin/Globulin Ratio 0.9 (1.0-1.7) 0.9 (1.0-1.7) Salicylates Level < 2.8 mg/dL (2.8-20.0) Salicylate Last Dose Date Unk Salicylate Last Dose Time Unk Acetaminophen Level < 10 mcg/ml (10-30) Acetaminophen Last Dose Date Unk Acetaminophen Last Dose Time Unk Ethyl Alcohol Level < 10 mg/dL (0-10) Urine Collection Type Unknown Urine Color Yellow Urine Clarity Clear Urine pH 5.5 Urine Specific [place] 1.015 Urine Protein 100 mg/dL (NEG-TRACE) Urine Glucose (UA) Negative mg/dL (NEG) Urine Ketones (Stick) >=80 mg/dL (NEG) Urine Blood Moderate (NEG) Urine Nitrite Negative (NEG) Urine Bilirubin Negative (NEG) Urine Urobilinogen Dipstick 0.2 mg/dL (0.2 mg/dL) Urine Leukocyte Esterase Small (NEG) Urine RBC 0 /HPF (0-2) Urine WBC 11-20 /HPF (0-4) Urine Squamous Epithelial Cells Mod /LPF Urine Bacteria 0 /HPF (0-FEW) Urine Hyaline Casts Moderate /HPF Urine Mucus Mod /LPF Urine Opiates Screen Neg (NEG) Urine Methadone Screen Neg (NEG) Urine Barbiturates Neg (NEG) Urine Phencyclidine Screen Neg (NEG) Urine Amphetamine/Methamphetamine Neg (NEG) Urine Benzodiazepines Screen Neg (NEG) Urine Cocaine Screen Neg (NEG) Urine Cannabinoids Screen Neg (NEG) Urine Ethyl Alcohol Neg (NEG) Laboratory Tests Test 12/19/16 13:11 12/19/16 13:45 12/19/16 14:02 12/20/16 02:45 Bedside Urine HCG, Qualitative Hcg negative (Negative) White Blood Count 5.0 x10^3/uL (4.0-11.0) 5.2 x10^3/uL (4.0-11.0) Red Blood Count 3.53 x10^6/uL (3.50-5.40) 3.17 x10^6/uL (3.50-5.40) Hemoglobin 13.2 g/dL (12.0-15.5) 11.9 g/dL (12.0-15.5) Hematocrit 39.6 % (36.0-47.0) 35.3 % (36.0-47.0) Mean Corpuscular Volume 112 fL (79-100) 111 fL (79-100) Mean Corpuscular Hemoglobin 38 pg (25-35) 37 pg (25-35) Mean Corpuscular Hemoglobin Concent 34 g/dL (31-37) 34 g/dL (31-37) Red Cell Distribution Width 16.7 % (11.5-14.5) 16.5 % (11.5-14.5) Platelet Count 147 x10^3/uL (140-400) 133 x10^3/uL (140-400) Neutrophils (%) (Auto) 82 % (31-73) 70 % (31-73) Lymphocytes (%) (Auto) 9 % (24-48) 21 % (24-48) Monocytes (%) (Auto) 9 % (0-9) 8 % (0-9) Eosinophils (%) (Auto) 0 % (0-3) 0 % (0-3) Basophils (%) (Auto) 1 % (0-3) 0 % (0-3) Neutrophils # (Auto) 4.0 x10^3uL (1.8-7.7) 3.6 x10^3uL (1.8-7.7) Lymphocytes # (Auto) 0.4 x10^3/uL (1.0-4.8) 1.1 x10^3/uL (1.0-4.8) Monocytes # (Auto) 0.4 x10^3/uL (0.0-1.1) 0.4 x10^3/uL (0.0-1.1) Eosinophils # (Auto) 0.0 x10^3/uL (0.0-0.7) 0.0 x10^3/uL (0.0-0.7) Basophils # (Auto) 0.0 x10^3/uL (0.0-0.2) 0.0 x10^3/uL (0.0-0.2) Platelet Estimate Adequate (ADEQUATE) Giant Platelets Few Polychromasia Slight Basophilic Stippling Present Anisocytosis Slight Macrocytosis Mod Pappenheimer Bodies Occ Sodium Level 135 mmol/L (136-145) 137 mmol/L (136-145) Potassium Level 3.5 mmol/L (3.5-5.1) 3.1 mmol/L (3.5-5.1) Chloride Level 92 mmol/L (98-107) 98 mmol/L (98-107) Carbon Dioxide Level 23 mmol/L (21-32) 28 mmol/L (21-32) Anion Gap 20 (6-14) 11 (6-14) Blood Urea Nitrogen 7 mg/dL (7-20) 8 mg/dL (7-20) Creatinine 0.8 mg/dL (0.6-1.0) 0.8 mg/dL (0.6-1.0) Estimated GFR (Cockcroft-Gault) 94.7 94.7 BUN/Creatinine Ratio 9 (6-20) 10 (6-20) Glucose Level 107 mg/dL (70-99) 93 mg/dL (70-99) Calcium Level 8.9 mg/dL (8.5-10.1) 8.2 mg/dL (8.5-10.1) Phosphorus Level 2.2 mg/dL (2.6-4.7) 1.9 mg/dL (2.6-4.7) Magnesium Level 1.1 mg/dL (1.8-2.4) 2.5 mg/dL (1.8-2.4) Total Bilirubin 1.5 mg/dL (0.2-1.0) 1.1 mg/dL (0.2-1.0) Aspartate Amino Transf (AST/SGOT) 272 U/L (15-37) 223 U/L (15-37) Alanine Aminotransferase (ALT/SGPT) 81 U/L (14-59) 62 U/L (14-59) Alkaline Phosphatase 116 U/L (46-116) 95 U/L (46-116) Total Protein 9.1 g/dL (6.4-8.2) 7.9 g/dL (6.4-8.2) Albumin 4.2 g/dL (3.4-5.0) 3.7 g/dL (3.4-5.0) Albumin/Globulin Ratio 0.9 (1.0-1.7) 0.9 (1.0-1.7) Salicylates Level < 2.8 mg/dL (2.8-20.0) Salicylate Last Dose Date Unk Salicylate Last Dose Time Unk Acetaminophen Level < 10 mcg/ml (10-30) Acetaminophen Last Dose Date Unk Acetaminophen Last Dose Time Unk Ethyl Alcohol Level < 10 mg/dL (0-10) Urine Collection Type Unknown Urine Color Yellow Urine Clarity Clear Urine pH 5.5 Urine Specific [place] 1.015 Urine Protein 100 mg/dL (NEG-TRACE) Urine Glucose (UA) Negative mg/dL (NEG) Urine Ketones (Stick) >=80 mg/dL (NEG) Urine Blood Moderate (NEG) Urine Nitrite Negative (NEG) Urine Bilirubin Negative (NEG) Urine Urobilinogen Dipstick 0.2 mg/dL (0.2 mg/dL) Urine Leukocyte Esterase Small (NEG) Urine RBC 0 /HPF (0-2) Urine WBC 11-20 /HPF (0-4) Urine Squamous Epithelial Cells Mod /LPF Urine Bacteria 0 /HPF (0-FEW) Urine Hyaline Casts Moderate /HPF Urine Mucus Mod /LPF Urine Opiates Screen Neg (NEG) Urine Methadone Screen Neg (NEG) Urine Barbiturates Neg (NEG) Urine Phencyclidine Screen Neg (NEG) Urine Amphetamine/Methamphetamine Neg (NEG) Urine Benzodiazepines Screen Neg (NEG) Urine Cocaine Screen Neg (NEG) Urine Cannabinoids Screen Neg (NEG) Urine Ethyl Alcohol Neg (NEG) Brief Hospital Course Ms. Tirado is a 41 old [sex] who presented with [ ] 41yo F, heavy drinker , was sent by EMS for seizure. Pt drinks at least 1L of hard alcohol, vokha daily. Last time of heavy drinking was 2 days ago, she started to feel back and bl leg spasm, and tremors and then took 2 beers last night. Today, she was meeting with families at parking lot, standing, then suddenly fell backwards, hit head with open wound. She also has stiff body and extremities, foam liquid coming from mouth, for 7mins as per family, then woke up when EMS came, but cont confused for about 50min. Pt didnot bite tongue or lost bm/urine control. She felt ok before the fall, denies palpitation, lightheaded, chest pain. The longest time she was off alcohol was 1 year ago, 4 days, she only had tremors, never had seizure before. THe reason she stop drinking heavily for 2 days is "wants to get life back together). has HTN, but not taking meds for 1month 2/2 non compliance. COURSE: Pts tayed overnight, got 2 doses librium, better. Wide awake, Neuro consulted - no new meds, alcohol related,. Medically ready to dc Wrote for Librium rx Dw whole family at bedside COunselled and edcuated on librium etc ALl qs answered Time 32mins > 50% counselling Discharge Information Condition at Discharge: Improved, Stable Disposition/Orders: D/C to Home Scheduled Amlodipine Besylate/Benazepril (Amlodipine-Benazepril 5-20 Mg), 1 CAP PO DAILY, (Reported) HAMZAH BOB MD December 20, 2016 11:08
--- NOTE | 2016-12-20 12:24 | PDOC ---
PROGRESS NOTES Assessment Problems Medical Problems: (1) Alcohol withdrawal seizure Status: Acute (2) Hypertension Status: Acute (3) Tachycardia Status: Acute (4) Transaminitis Status: Acute Alcohol-related seizure Scalp laceration Plan Agree with discharge Re-discussed seizure precautions with patient, including no driving for 6 months seizure-free. Subjective no complaints Objective Vital Signs Date Time Temp Pulse Resp B/P (MAP) Pulse Ox O2 Delivery O2 Flow Rate FiO2 12/20/16 10:45 98.1 97 18 133/90 (104) 93 Room Air 98.1 Intake and Output 12/20/16 07:00 Intake Total 250 ml Balance 250 ml Intake Oral 250 ml PHYSICAL EXAM Alert. Oriented to time, place and person. PERRL. EOMI. CN: no focal findings. Muscle tone: normal. Muscle strength: 5/5 DTR: 2+ Plantar reflex: flexor Gait: normal Sensory exam: no abnormal findings. No cerebellar signs elicited. Minimal tremulousness Review of Relevant I have reviewed the following items douglas (where applicable) has been applied. Labs Laboratory Tests Test 12/19/16 13:11 12/19/16 13:45 12/19/16 14:02 12/20/16 02:45 Bedside Urine HCG, Qualitative Hcg negative (Negative) White Blood Count 5.0 x10^3/uL (4.0-11.0) 5.2 x10^3/uL (4.0-11.0) Red Blood Count 3.53 x10^6/uL (3.50-5.40) 3.17 x10^6/uL (3.50-5.40) Hemoglobin 13.2 g/dL (12.0-15.5) 11.9 g/dL (12.0-15.5) Hematocrit 39.6 % (36.0-47.0) 35.3 % (36.0-47.0) Mean Corpuscular Volume 112 fL (79-100) 111 fL (79-100) Mean Corpuscular Hemoglobin 38 pg (25-35) 37 pg (25-35) Mean Corpuscular Hemoglobin Concent 34 g/dL (31-37) 34 g/dL (31-37) Red Cell Distribution Width 16.7 % (11.5-14.5) 16.5 % (11.5-14.5) Platelet Count 147 x10^3/uL (140-400) 133 x10^3/uL (140-400) Neutrophils (%) (Auto) 82 % (31-73) 70 % (31-73) Lymphocytes (%) (Auto) 9 % (24-48) 21 % (24-48) Monocytes (%) (Auto) 9 % (0-9) 8 % (0-9) Eosinophils (%) (Auto) 0 % (0-3) 0 % (0-3) Basophils (%) (Auto) 1 % (0-3) 0 % (0-3) Neutrophils # (Auto) 4.0 x10^3uL (1.8-7.7) 3.6 x10^3uL (1.8-7.7) Lymphocytes # (Auto) 0.4 x10^3/uL (1.0-4.8) 1.1 x10^3/uL (1.0-4.8) Monocytes # (Auto) 0.4 x10^3/uL (0.0-1.1) 0.4 x10^3/uL (0.0-1.1) Eosinophils # (Auto) 0.0 x10^3/uL (0.0-0.7) 0.0 x10^3/uL (0.0-0.7) Basophils # (Auto) 0.0 x10^3/uL (0.0-0.2) 0.0 x10^3/uL (0.0-0.2) Platelet Estimate Adequate (ADEQUATE) Giant Platelets Few Polychromasia Slight Basophilic Stippling Present Anisocytosis Slight Macrocytosis Mod Pappenheimer Bodies Occ Sodium Level 135 mmol/L (136-145) 137 mmol/L (136-145) Potassium Level 3.5 mmol/L (3.5-5.1) 3.1 mmol/L (3.5-5.1) Chloride Level 92 mmol/L (98-107) 98 mmol/L (98-107) Carbon Dioxide Level 23 mmol/L (21-32) 28 mmol/L (21-32) Anion Gap 20 (6-14) 11 (6-14) Blood Urea Nitrogen 7 mg/dL (7-20) 8 mg/dL (7-20) Creatinine 0.8 mg/dL (0.6-1.0) 0.8 mg/dL (0.6-1.0) Estimated GFR (Cockcroft-Gault) 94.7 94.7 BUN/Creatinine Ratio 9 (6-20) 10 (6-20) Glucose Level 107 mg/dL (70-99) 93 mg/dL (70-99) Calcium Level 8.9 mg/dL (8.5-10.1) 8.2 mg/dL (8.5-10.1) Phosphorus Level 2.2 mg/dL (2.6-4.7) 1.9 mg/dL (2.6-4.7) Magnesium Level 1.1 mg/dL (1.8-2.4) 2.5 mg/dL (1.8-2.4) Total Bilirubin 1.5 mg/dL (0.2-1.0) 1.1 mg/dL (0.2-1.0) Aspartate Amino Transf (AST/SGOT) 272 U/L (15-37) 223 U/L (15-37) Alanine Aminotransferase (ALT/SGPT) 81 U/L (14-59) 62 U/L (14-59) Alkaline Phosphatase 116 U/L (46-116) 95 U/L (46-116) Total Protein 9.1 g/dL (6.4-8.2) 7.9 g/dL (6.4-8.2) Albumin 4.2 g/dL (3.4-5.0) 3.7 g/dL (3.4-5.0) Albumin/Globulin Ratio 0.9 (1.0-1.7) 0.9 (1.0-1.7) Salicylates Level < 2.8 mg/dL (2.8-20.0) Salicylate Last Dose Date Unk Salicylate Last Dose Time Unk Acetaminophen Level < 10 mcg/ml (10-30) Acetaminophen Last Dose Date Unk Acetaminophen Last Dose Time Unk Ethyl Alcohol Level < 10 mg/dL (0-10) Urine Collection Type Unknown Urine Color Yellow Urine Clarity Clear Urine pH 5.5 Urine Specific [place] 1.015 Urine Protein 100 mg/dL (NEG-TRACE) Urine Glucose (UA) Negative mg/dL (NEG) Urine Ketones (Stick) >=80 mg/dL (NEG) Urine Blood Moderate (NEG) Urine Nitrite Negative (NEG) Urine Bilirubin Negative (NEG) Urine Urobilinogen Dipstick 0.2 mg/dL (0.2 mg/dL) Urine Leukocyte Esterase Small (NEG) Urine RBC 0 /HPF (0-2) Urine WBC 11-20 /HPF (0-4) Urine Squamous Epithelial Cells Mod /LPF Urine Bacteria 0 /HPF (0-FEW) Urine Hyaline Casts Moderate /HPF Urine Mucus Mod /LPF Urine Opiates Screen Neg (NEG) Urine Methadone Screen Neg (NEG) Urine Barbiturates Neg (NEG) Urine Phencyclidine Screen Neg (NEG) Urine Amphetamine/Methamphetamine Neg (NEG) Urine Benzodiazepines Screen Neg (NEG) Urine Cocaine Screen Neg (NEG) Urine Cannabinoids Screen Neg (NEG) Urine Ethyl Alcohol Neg (NEG) Laboratory Tests Test 12/19/16 13:11 12/19/16 13:45 12/19/16 14:02 12/20/16 02:45 Bedside Urine HCG, Qualitative Hcg negative (Negative) White Blood Count 5.0 x10^3/uL (4.0-11.0) 5.2 x10^3/uL (4.0-11.0) Red Blood Count 3.53 x10^6/uL (3.50-5.40) 3.17 x10^6/uL (3.50-5.40) Hemoglobin 13.2 g/dL (12.0-15.5) 11.9 g/dL (12.0-15.5) Hematocrit 39.6 % (36.0-47.0) 35.3 % (36.0-47.0) Mean Corpuscular Volume 112 fL (79-100) 111 fL (79-100) Mean Corpuscular Hemoglobin 38 pg (25-35) 37 pg (25-35) Mean Corpuscular Hemoglobin Concent 34 g/dL (31-37) 34 g/dL (31-37) Red Cell Distribution Width 16.7 % (11.5-14.5) 16.5 % (11.5-14.5) Platelet Count 147 x10^3/uL (140-400) 133 x10^3/uL (140-400) Neutrophils (%) (Auto) 82 % (31-73) 70 % (31-73) Lymphocytes (%) (Auto) 9 % (24-48) 21 % (24-48) Monocytes (%) (Auto) 9 % (0-9) 8 % (0-9) Eosinophils (%) (Auto) 0 % (0-3) 0 % (0-3) Basophils (%) (Auto) 1 % (0-3) 0 % (0-3) Neutrophils # (Auto) 4.0 x10^3uL (1.8-7.7) 3.6 x10^3uL (1.8-7.7) Lymphocytes # (Auto) 0.4 x10^3/uL (1.0-4.8) 1.1 x10^3/uL (1.0-4.8) Monocytes # (Auto) 0.4 x10^3/uL (0.0-1.1) 0.4 x10^3/uL (0.0-1.1) Eosinophils # (Auto) 0.0 x10^3/uL (0.0-0.7) 0.0 x10^3/uL (0.0-0.7) Basophils # (Auto) 0.0 x10^3/uL (0.0-0.2) 0.0 x10^3/uL (0.0-0.2) Platelet Estimate Adequate (ADEQUATE) Giant Platelets Few Polychromasia Slight Basophilic Stippling Present Anisocytosis Slight Macrocytosis Mod Pappenheimer Bodies Occ Sodium Level 135 mmol/L (136-145) 137 mmol/L (136-145) Potassium Level 3.5 mmol/L (3.5-5.1) 3.1 mmol/L (3.5-5.1) Chloride Level 92 mmol/L (98-107) 98 mmol/L (98-107) Carbon Dioxide Level 23 mmol/L (21-32) 28 mmol/L (21-32) Anion Gap 20 (6-14) 11 (6-14) Blood Urea Nitrogen 7 mg/dL (7-20) 8 mg/dL (7-20) Creatinine 0.8 mg/dL (0.6-1.0) 0.8 mg/dL (0.6-1.0) Estimated GFR (Cockcroft-Gault) 94.7 94.7 BUN/Creatinine Ratio 9 (6-20) 10 (6-20) Glucose Level 107 mg/dL (70-99) 93 mg/dL (70-99) Calcium Level 8.9 mg/dL (8.5-10.1) 8.2 mg/dL (8.5-10.1) Phosphorus Level 2.2 mg/dL (2.6-4.7) 1.9 mg/dL (2.6-4.7) Magnesium Level 1.1 mg/dL (1.8-2.4) 2.5 mg/dL (1.8-2.4) Total Bilirubin 1.5 mg/dL (0.2-1.0) 1.1 mg/dL (0.2-1.0) Aspartate Amino Transf (AST/SGOT) 272 U/L (15-37) 223 U/L (15-37) Alanine Aminotransferase (ALT/SGPT) 81 U/L (14-59) 62 U/L (14-59) Alkaline Phosphatase 116 U/L (46-116) 95 U/L (46-116) Total Protein 9.1 g/dL (6.4-8.2) 7.9 g/dL (6.4-8.2) Albumin 4.2 g/dL (3.4-5.0) 3.7 g/dL (3.4-5.0) Albumin/Globulin Ratio 0.9 (1.0-1.7) 0.9 (1.0-1.7) Salicylates Level < 2.8 mg/dL (2.8-20.0) Salicylate Last Dose Date Unk Salicylate Last Dose Time Unk Acetaminophen Level < 10 mcg/ml (10-30) Acetaminophen Last Dose Date Unk Acetaminophen Last Dose Time Unk Ethyl Alcohol Level < 10 mg/dL (0-10) Urine Collection Type Unknown Urine Color Yellow Urine Clarity Clear Urine pH 5.5 Urine Specific [place] 1.015 Urine Protein 100 mg/dL (NEG-TRACE) Urine Glucose (UA) Negative mg/dL (NEG) Urine Ketones (Stick) >=80 mg/dL (NEG) Urine Blood Moderate (NEG) Urine Nitrite Negative (NEG) Urine Bilirubin Negative (NEG) Urine Urobilinogen Dipstick 0.2 mg/dL (0.2 mg/dL) Urine Leukocyte Esterase Small (NEG) Urine RBC 0 /HPF (0-2) Urine WBC 11-20 /HPF (0-4) Urine Squamous Epithelial Cells Mod /LPF Urine Bacteria 0 /HPF (0-FEW) Urine Hyaline Casts Moderate /HPF Urine Mucus Mod /LPF Urine Opiates Screen Neg (NEG) Urine Methadone Screen Neg (NEG) Urine Barbiturates Neg (NEG) Urine Phencyclidine Screen Neg (NEG) Urine Amphetamine/Methamphetamine Neg (NEG) Urine Benzodiazepines Screen Neg (NEG) Urine Cocaine Screen Neg (NEG) Urine Cannabinoids Screen Neg (NEG) Urine Ethyl Alcohol Neg (NEG) Medications Current Medications Diphtheria/ Tetanus/Acell Pertussis (Boostrix) 0.5 ml ONCE ONCE VAX IM Last administered on 12/19/16 13:53; Start 12/19/16 at 13:00; Stop 12/19/16 at 13:14; Status DC Lidocaine/ Epinephrine (Let Topical) 3 ml 1X ONCE TP Last administered on 13:54; Start 12/19/16 at 13:00; Stop 12/19/16 at 13:14; Status DC Diazepam (Valium) 5 mg 1X ONCE IV Last administered on 12/19/16 13:50; Start 12/19/16 at 13:00; Stop 12/19/16 at 13:14; Status DC Sodium Chloride 1,000 ml @ 1,000 mls/hr 1X ONCE IV Last administered on 13:52; Start 12/19/16 at 13:00; Stop 12/19/16 at 13:59; Status DC Diazepam (Valium) 5 mg PRN Q5MIN PRN IV COMM Last administered on 12/19/16 15: 24; Start 12/19/16 at 13:15 Ondansetron HCl (Zofran) 4 mg PRN Q8HRS PRN IV NAUSEA/VOMITING; Start 12/19/16 at 15:30; Stop 12/20/16 at 15:29 Morphine Sulfate 2 mg PRN Q2HR PRN IV PAIN; Start 12/19/16 at 15:30; Stop at 15:29 Acetaminophen (Tylenol) 650 mg PRN Q4HRS PRN PO FEVER; Start 12/19/16 at 15:30; Stop 12/20/16 at 15:29 Multivitamins 10 ml/Thiamine HCl 100 mg/Folic Acid 1 mg/Sodium Chloride 1,011.2 ml @ 100 mls/ hr DAILY IV Last administered on 12/20/16 10:14; Start 12/19/16 at 16:00; Stop 12/23/16 at 19:07 Diazepam (Valium) 5 mg PRN Q5MIN PRN IV COMM; Start 12/19/16 at 15:30 Non-Formulary Medication 1 cap DAILY PO ; Start 12/20/16 at 09:00; Stop 12/20/16 at 09:00; Status DC Chlordiazepoxide (Librium) 50 mg TID PO Last administered on 12/20/16 10:16; Start 12/19/16 at 16:05 Acetaminophen (Tylenol) 650 mg PRN Q6HRS PRN PO FEVER; Start 12/19/16 at 16:00 Ondansetron HCl (Zofran) 4 mg PRN Q6HRS PRN IV NAUSEA/VOMITING; Start 12/19/16 at 16:00 Tramadol HCl (Ultram) 50 mg PRN Q6HRS PRN PO PAIN Last administered on 00:47; Start 12/19/16 at 16:00 Amlodipine Besylate (Norvasc) 5 mg DAILY PO Last administered on 12/19/16 14:30 ; Start 12/19/16 at 14:30 Enoxaparin Sodium (Lovenox 40mg Syringe) 40 mg DAILY08 SQ Last administered on 12/20/16 10:13; Start 12/20/16 at 08:00 Hydralazine HCl (Apresoline) 10 mg PRN Q4HRS PRN IVP ELEVATED BP, SEE COMMENTS ; Start 12/19/16 at 16:00 Lisinopril (Prinivil) 20 mg DAILY PO Last administered on 12/20/16 10:15; Start 12/19/16 at 16:30 Potassium Phosphate 10 mmol/ Sodium Chloride 103.3333 ml @ 51.667 m... Q2H IV Last administered on 12/19/16 21:34; Start 12/19/16 at 17:00; Stop 12/19/16 at 20: 59; Status DC Magnesium Sulfate/ Dextrose 100 ml @ 25 mls/hr 1X ONCE IV Last administered on 12/19/16 21:31; Start 12/19/16 at 16:15; Stop 12/19/16 at 20:14; Status DC Alprazolam (Xanax) 0.25 mg PRN Q8HRS PRN PO ANXIETY / AGITATION; Start 12/20/16 at 09:15 Active Scripts Active Reported Amlodipine-Benazepril 5-20 Mg (Amlodipine Besylate/Benazepril) 1 Each Capsule 1 Cap PO DAILY Vitals/I & O Vital Sign - Last 24 Hours 12/19/16 12/19/16 12/19/16 12/19/16 12:25 13:03 13:33 14:03 Temp 98.6 98.6 Pulse 88 107 105 110 Resp 18 23 28 B/P (MAP) 153/109 (124) 156/106 (123) 141/89 (106) 145/101 (116) Pulse Ox 98 97 97 O2 Delivery Room Air Room Air Room Air 12/19/16 12/19/16 12/19/16 12/19/16 14:30 16:00 16:30 16:33 Temp 98.2 98.2 Pulse 104 107 107 Resp 17 B/P (MAP) 133/89 133/89 (104) 130/90 130/90 (103) Pulse Ox 98 O2 Delivery Room Air 12/19/16 12/19/16 12/19/16 12/19/16 16:34 17:47 19:05 20:00 Temp 98.2 98.6 98.2 98.6 Pulse 107 108 Resp 17 18 B/P (MAP) 130/90 (103) 144/93 (110) Pulse Ox 98 99 O2 Delivery Room Air Room Air Room Air Room Air 12/19/16 12/20/16 12/20/16 12/20/16 23:05 00:47 01:47 03:05 Temp 98.8 97.9 98.8 97.9 Pulse 115 102 Resp 18 18 18 18 B/P (MAP) 118/86 (97) 115/80 (92) Pulse Ox 98 97 96 99 O2 Delivery Room Air Room Air Room Air Room Air 12/20/16 12/20/16 12/20/16 07:05 10:15 10:45 Temp 97.9 98.1 97.9 98.1 Pulse 98 99 97 Resp 18 18 B/P (MAP) 118/90 (99) 118/90 133/90 (104) Pulse Ox 98 93 O2 Delivery Room Air Room Air Intake and Output 12/19/16 12/19/16 12/20/16 15:00 23:00 07:00 Intake Total 0 ml 250 ml Balance 0 ml 250 ml BELGICA BARKSDALE MD December 20, 2016 12:24
== END 2016-12-20 13:00 | disposition home or self-care (01) | DRG 895 ==
LOC: ER 13:32 → 6 SOUTH 14:22
PROVIDERS: ADMIT Internal Medicine; ATTEND Internal Medicine
PROC: HZ63ZZZ Family Counseling for Substance Abuse Treatment (ICD-10-PCS; principal; 2016-12-20)
PROC: HZ31ZZZ Individual Counseling for Substance Abuse Treatment, Behavioral (ICD-10-PCS; 2016-12-20)
DX: F10.239 Alcohol dependence with withdrawal, unspecified (principal); S01.01XA Laceration without foreign body of scalp, initial encounter; F12.10 Cannabis abuse, uncomplicated; I10 Essential (primary) hypertension; K70.10 Alcoholic hepatitis without ascites; R56.9 Unspecified convulsions; W19.XXXA Unspecified fall, initial encounter; Y92.481 Parking lot as the place of occurrence of the external cause; Z82.49 Family history of ischemic heart disease and other diseases of the circulatory system; Z90.710 Acquired absence of both cervix and uterus; Y93.89 Activity, other specified; Z88.0 Allergy status to penicillin
CPT/HCPCS: 12013; 36415; 70450; 80053; 81001; 81025; 83735; 84100; 85007; 85027; 87086; 90471; 90715; 93005; 96361; 96374; 96376; G0480; G0481; G6038; J1650; J3360; J3475; J7030; 80196; 99285-25

== ENCOUNTER 2016-12-24 10:11 | Emergency (ER) | payer SELFPAY ==
[~2016-12-24] VITALS: Ht 162.6 cm; Wt 54.4 kg
[~2016-12-24 10:11] MED LIST: AMLO1CAP10 PO
[2016-12-24 10:18] VITALS: BP 142/94
--- NOTE | 2016-12-24 10:38 | PHYS DOC ---
Past Medical History Past Medical History: Hypertension Past Surgical History: Hysterectomy Alcohol Use: Sober Drug Use: None Adult General Chief Complaint Chief Complaint: SUTURE/STAPLE REMOVAL HPI HPI Patient is a 41 year old female with history of hypertension who presents today for staple removal. Patient states she fell down 5 days ago and had néstor placed in her scalp. Patient denies any fever. Patient states the wound is healing. She states she was instructed to come to the ED in 5 days to have them removed. Review of Systems Review of Systems Constitutional: Denies fever or chills [] Eyes: Denies change in visual acuity, redness, or eye pain [] HENT: Denies nasal congestion or sore throat : Denies dysuria or hematuria [] Musculoskeletal: Denies back pain or joint pain [] Integument: Visit for staple removal Neurologic: Denies headache, focal weakness or sensory changes [] Endocrine: Denies polyuria or polydipsia [] Allergies Allergies Allergies Coded Allergies Type Severity Reaction Last Updated Verified Penicillins Allergy Intermediate 12/20/16 Yes Physical Exam Physical Exam Constitutional: Well developed, well nourished, no acute distress, non-toxic appearance. [] HENT: Normocephalic, atraumatic, bilateral external ears normal, oropharynx moist, no oral exudates, nose normal. [] Eyes: PERRLA, EOMI, conjunctiva normal, no discharge. [] Abdomen: Bowel sounds normal, soft, no tenderness, no masses, no pulsatile masses. [] Skin: Posterior scalp with a well approximated laceration site with 2 néstor. There is scabbing over the laceration site. No signs of infection. Back: No tenderness, no CVA tenderness. [] Extremities: No tenderness, no cyanosis, no clubbing, ROM intact, no edema. [] Neurologic: Alert and oriented X 3, normal motor function, normal sensory function, no focal deficits noted. [] Psychologic: Affect normal, judgement normal, mood normal. [] Current Patient Data Vital Signs Vital Signs Date Time Temp Pulse Resp B/P (MAP) Pulse Ox O2 Delivery O2 Flow Rate FiO2 12/24/16 10:18 98.2 83 16 99 Room Air 98.2 EKG EKG [] Radiology/Procedures Radiology/Procedures [] Course & Med Decision Making Course & Med Decision Making Pertinent Labs and Imaging studies reviewed. (See chart for details) Two néstor were removed from patient's posterior scalp laceration by the ED RN , laceration site appears well approximated. No signs of infection. Neosporin recommended to the area. Provided patient return precautions. Discharged in stable condition. Dragon Disclaimer Dragon Disclaimer This electronic medical record was generated, in whole or in part, using a voice recognition dictation system. Departure Departure Impression: Primary Impression: Encounter for staple removal Disposition: HOME, SELF-CARE Condition: STABLE Referrals: NO PCP (PCP) Follow-up with your own doctor as needed Patient Instructions: Staple Removal, Care After Additional Instructions: Keep the laceration site clean and dry. You can apply Neosporin to it for one week. You can shower and wash her hair. Follow-up with your own doctor in 1-2 weeks as needed. Monitor the area for signs and symptoms of infection including increased redness warmth or odor drainage from the area and return to the ED if they occur. RYANN BRADSHAW APRN December 24, 2016 10:38
== END 2016-12-24 10:44 | disposition home or self-care (01) ==
LOC: ER 10:11
DX: S01.01XD Laceration without foreign body of scalp, subsequent encounter (principal); I10 Essential (primary) hypertension; Z88.0 Allergy status to penicillin; X58.XXXD Exposure to other specified factors, subsequent encounter
CPT/HCPCS: 99281

== ENCOUNTER 2018-08-12 06:04 | Inpatient (IN) | payer SELFPAY ==
[~2018-08-12] VITALS: Ht 167.6 cm; Wt 55.8 kg
[~2018-08-12 06:04] MED LIST changes: +FOLI1TAB16 PO; +MULT1TAB90 PO; +POTA20TA4 PO; +THIA100T22 PO
[2018-08-12 06:56] LABS: BILIRUBIN,URINE NEGATIVE (NEG); CLARITY,URINE CLEAR; COLOR,URINE YELLOW; NITRITE,URINE NEGATIVE (NEG); PROTEIN,URINE 100 mg/dL (NEG-TRACE); UROBILINOGEN,URINE 0.2 mg/dL (0.2 mg/dL)
[2018-08-12] MEDS ORDERED: IV NORMAL SALINE 1000ML BAG 1,000 ML IV ONE (07:00)
[2018-08-12] MEDS ORDERED: MULTIVITAMIN I-VITE TABLET. PO ONE (07:00)
[2018-08-12] MEDS ORDERED: THIAMINE 100 MG TABLET. PO ONE (07:00)
[2018-08-12 07:10] LABS: AMPHETAMINE/METHAMPHETAMINE NEG (NEG); BACTERIA,URINE 0 /HPF (0-FEW); BARBITURATES NEG (NEG); BENZODIAZEPINES POS (NEG); CANNABINOIDS NEG (NEG); COCAINE NEG (NEG); METHADONE NEG (NEG); OPIATES NEG (NEG); PHENCYCLIDINE NEG (NEG); RBC,URINE OCC /HPF (0-2); SQUAMOUS EPITHELIAL CELL,UR MOD /LPF; TRICHOMONAS,URINE PRESENT
[2018-08-12 07:20] LABS: BASO % 1 % (0-3); EOS % 0 % (0-3); HEMATOCRIT 38.6 % (36.0-47.0); HEMOGLOBIN 13.7 g/dL (12.0-15.5); LYMPH # 0.8 x10^3/uL (1.0-4.8); LYMPH % 19 % (24-48); MEAN CORPUSCULAR HEMOGLOBIN 37 pg (25-35); MEAN CORPUSCULAR HGB CONC 35 g/dL (31-37); MEAN CORPUSCULAR VOLUME 103 fL (79-100); MONO # 0.6 x10^3/uL (0.0-1.1); MONO % 13 % (0-9); NEUT # 2.9 x10^3uL (1.8-7.7); NEUT % 68 % (31-73); PLATELET COUNT 113 x10^3/uL (140-400); RED BLOOD COUNT 3.75 x10^6/uL (3.50-5.40); RED CELL DISTRIBUTION WIDTH 14.5 % (11.5-14.5); WHITE BLOOD COUNT 4.3 x10^3/uL (4.0-11.0)
--- NOTE | 2018-08-12 07:27 | EKG ---
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
[2018-08-12] MEDS ORDERED: metroNIDAZOLE 500 MG TABLET PO ONE (07:30)
[2018-08-12 07:34] LABS: CALCIUM 9.5 mg/dL (8.5-10.1); CREATININE 0.9 mg/dL (0.6-1.0); GFR 81.9; POTASSIUM 3.3 mmol/L (3.5-5.1)
--- NOTE | 2018-08-12 07:36 | PHYS DOC ---
Past Medical History Past Medical History: Hypertension, Other Additional Past Medical Histor: ETOH abuse with withdraw seizure Past Surgical History: Hysterectomy Alcohol Use: Heavy Drug Use: None Adult General Chief Complaint Chief Complaint: SEIZURE HPI HPI Patient is a 43 year old female presents with brought in by ambulance with seizure. This was a witnessed seizure by the son fell down she hit her head she has been drinking alcohol last drink was yesterday she does not have any more Librium to take. She feels shaky no fever no abdominal pain no other symptoms currently she has not had any more seizures while in the emergency room Review of Systems Review of Systems Constitutional: Denies fever or chills [] Eyes: Denies change in visual acuity, redness, or eye pain [] HENT: Denies nasal congestion or sore throat [] Respiratory: Denies cough or shortness of breath [] Cardiovascular: No additional information not addressed in HPI [] GI: Denies abdominal pain, nausea, vomiting, bloody stools or diarrhea [] : Denies dysuria or hematuria [] Musculoskeletal: Denies back pain or joint pain [] Integument: Denies rash or skin lesions [] Neurologic: Denies headache, focal weakness or sensory changes [] Endocrine: Denies polyuria or polydipsia [] All other systems were reviewed and found to be within normal limits, except as documented in this note. Current Medications Current Medications Current Medications Medications (Trade) Dose Ordered Sig/Ashley Start Time Stop Time Status Last Admin Dose Admin Chlordiazepoxide (Librium) 100 mg PRN Q1HR PRN 08/12/18 08:30 Folic Acid (Folic Acid) 1 mg DAILY 08/12/18 09:00 Lorazepam (Ativan) 2 mg PRN Q1HR PRN 08/12/18 08:30 Magnesium Sulfate/ Dextrose 100 ml @ 100 mls/hr 1X ONCE 08/12/18 09:00 08/12/18 09:59 Metronidazole (Flagyl) 2,000 mg 1X ONCE 08/12/18 07:30 08/12/18 07:31 DC 08/12/18 08:07 2,000 MG Multivitamins (Thera M Plus) 1 tab DAILY 08/12/18 09:00 Multivitamins 10 ml/Thiamine HCl 100 mg/Folic Acid 1 mg/Sodium Chloride 1,011.2 ml @ 100 mls/ hr DAILY 08/12/18 09:00 08/16/18 19:07 Multivitamins/ Minerals (I-Tramaine) 1 tab 1X ONCE 08/12/18 07:00 08/12/18 07:01 DC 08/12/18 07:05 1 TAB Potassium Chloride (KCl Oral Soln) 40 meq 1X ONCE 08/12/18 08:00 08/12/18 08:01 DC 08/12/18 08:24 40 MEQ Sodium Chloride 1,000 ml @ 1,000 mls/hr 1X ONCE 08/12/18 07:00 08/12/18 07:59 DC 08/12/18 07:18 1,000 MLS/HR Thiamine Mononitrate (Vitamin B-1) 100 mg 1X ONCE 08/12/18 07:00 08/12/18 07:01 DC 08/12/18 07:05 100 MG Allergies Allergies Allergies Coded Allergies Type Severity Reaction Last Updated Verified Penicillins Allergy Intermediate 12/20/16 Yes Physical Exam Physical Exam Constitutional: Well developed, well nourished, mild distress, non-toxic appearance. [] HENT: Normocephalic, atraumatic, bilateral external ears normal, oropharynx moist, no oral exudates, nose normal. [] There is a avulsion to the tongue laterally no suturable laceration Eyes: PERRLA, EOMI, conjunctiva normal, no discharge. [] Neck: Normal range of motion, no tenderness, supple, no stridor. [] Cardiovascular: Mild tachycardia no murmurs noted Lungs & Thorax: Bilateral breath sounds clear to auscultation [] Abdomen: Bowel sounds normal, soft, no tenderness, no masses, no pulsatile masses. [] Skin: Warm, dry, no erythema, no rash. [] Back: No tenderness, no CVA tenderness. [] Extremities: No tenderness, no cyanosis, no clubbing, ROM intact, no edema. [] Neurologic: Alert and oriented X 3, normal motor function, normal sensory function, no focal deficits noted. []Patient has a tongue wag as well as bilateral tremors however her speech is clear. Psychologic: Affect normal, judgement normal, mood normal. [] Current Patient Data Vital Signs Vital Signs Date Time Temp Pulse Resp B/P (MAP) Pulse Ox O2 Delivery O2 Flow Rate FiO2 08/12/18 08:15 84 18 99 08/12/18 06:20 98.2 170/109 (129) Room Air 98.2 Lab Values Laboratory Tests Test 08/12/18 06:20 08/12/18 07:05 Urine Collection Type Unknown Urine Color Yellow Urine Clarity Clear Urine pH 6.0 Urine Specific [place] 1.015 Urine Protein 100 mg/dL (NEG-TRACE) Urine Glucose (UA) Negative mg/dL (NEG) Urine Ketones (Stick) >=80 mg/dL (NEG) Urine Blood Moderate (NEG) Urine Nitrite Negative (NEG) Urine Bilirubin Negative (NEG) Urine Urobilinogen Dipstick 0.2 mg/dL (0.2 mg/dL) Urine Leukocyte Esterase Small (NEG) Urine RBC Occ /HPF (0-2) Urine WBC 1-4 /HPF (0-4) Urine Squamous Epithelial Cells Mod /LPF Urine Bacteria 0 /HPF (0-FEW) Urine Trichomonas Present Urine Opiates Screen Neg (NEG) Urine Methadone Screen Neg (NEG) Urine Barbiturates Neg (NEG) Urine Phencyclidine Screen Neg (NEG) Urine Amphetamine/Methamphetamine Neg (NEG) Urine Benzodiazepines Screen Pos (NEG) Urine Cocaine Screen Neg (NEG) Urine Cannabinoids Screen Neg (NEG) Urine Ethyl Alcohol Neg (NEG) White Blood Count 4.3 x10^3/uL (4.0-11.0) Red Blood Count 3.75 x10^6/uL (3.50-5.40) Hemoglobin 13.7 g/dL (12.0-15.5) Hematocrit 38.6 % (36.0-47.0) Mean Corpuscular Volume 103 fL (79-100) H Mean Corpuscular Hemoglobin 37 pg (25-35) H Mean Corpuscular Hemoglobin Concent 35 g/dL (31-37) Red Cell Distribution Width 14.5 % (11.5-14.5) Platelet Count 113 x10^3/uL (140-400) L Neutrophils (%) (Auto) 68 % (31-73) Lymphocytes (%) (Auto) 19 % (24-48) L Monocytes (%) (Auto) 13 % (0-9) H Eosinophils (%) (Auto) 0 % (0-3) Basophils (%) (Auto) 1 % (0-3) Neutrophils # (Auto) 2.9 x10^3uL (1.8-7.7) Lymphocytes # (Auto) 0.8 x10^3/uL (1.0-4.8) L Monocytes # (Auto) 0.6 x10^3/uL (0.0-1.1) Eosinophils # (Auto) 0.0 x10^3/uL (0.0-0.7) Basophils # (Auto) 0.0 x10^3/uL (0.0-0.2) Maternal Serum HCG Beta Subunit 1 mIU/mL (0-5) Sodium Level 133 mmol/L (136-145) L Potassium Level 3.3 mmol/L (3.5-5.1) L Chloride Level 87 mmol/L (98-107) L Carbon Dioxide Level 29 mmol/L (21-32) Anion Gap 17 (6-14) H Blood Urea Nitrogen 6 mg/dL (7-20) L Creatinine 0.9 mg/dL (0.6-1.0) Estimated GFR (Cockcroft-Gault) 81.9 BUN/Creatinine Ratio 7 (6-20) Glucose Level 177 mg/dL (70-99) H Calcium Level 9.5 mg/dL (8.5-10.1) Magnesium Level 0.9 mg/dL (1.8-2.4) L Total Bilirubin 0.9 mg/dL (0.2-1.0) Aspartate Amino Transferase (AST) 173 U/L (15-37) H Alanine Aminotransferase (ALT) 63 U/L (14-59) H Alkaline Phosphatase 143 U/L (46-116) H Total Protein 8.9 g/dL (6.4-8.2) H Albumin 4.0 g/dL (3.4-5.0) Albumin/Globulin Ratio 0.8 (1.0-1.7) L Lipase 144 U/L (73-393) Ethyl Alcohol Level < 10 mg/dL (0-10) Laboratory Tests 08/12/18 07:05 Laboratory Tests 08/12/18 07:05 EKG EKG []EKG shows a normal sinus rhythm with rate of 89 there is a QTC of [address] elevation is noted interpreted by me the time of encounter Radiology/Procedures Radiology/Procedures [] Impressions: CXR HEAD CT NEG Course & Med Decision Making Course & Med Decision Making Pertinent Labs and Imaging studies reviewed. (See chart for details) []Patient is still driving I did instruct her explicitly not to drive until probably for several months until she sees and is cleared by a neurologist as an outpatient and is seizure free for an extended period of time Noted the QTC of 498 give a gram of magnesium. Patient has a tongue wag MAG 0.9 CRITICALLY LOW admit to [facility] for electorlyte repletion and etoh w/d tx. d/w pushpa [place] Disclaimer Oz Disclaimer This electronic medical record was generated, in whole or in part, using a voice recognition dictation system. Departure Departure Impression: Primary Impression: Alcohol withdrawal Additional Impressions: Alcohol withdrawal seizure Hypokalemia Disposition: ADMITTED INPATIENT Admitting Physician: Agata Kapoor Condition: STABLE Referrals: UNKNOWN PCP NAME (PCP) Problem Qualifiers ELEANOR CASTRO MD Aug 12, 2018 07:36
[2018-08-12 07:40] LABS: ALBUMIN/GLOBULIN RATIO 0.8 (1.0-1.7); MAGNESIUM 0.9 mg/dL (1.8-2.4); TOTAL BILIRUBIN 0.9 mg/dL (0.2-1.0); TOTAL PROTEIN 8.9 g/dL (6.4-8.2)
--- NOTE | 2018-08-12 07:53 | RAD ---
CT of the head without contrast, 08/12/2018: HISTORY: Ethanol withdrawal, seizure Comparison is made to a study from 04/29/2018. The ventricles are within normal limits in size. There is no shift of midline structures. There is no evidence of acute intracranial hemorrhage or mass effect. IMPRESSION: No acute intracranial abnormality is detected. RS Compliance Statement: One or more of the following individualized dose reduction techniques were utilized for this examination: 1. Automated exposure control 2. Adjustment of the mA and/or kV according to patient size 3. Use of iterative reconstruction technique Electronically signed by: Jerrod Brewer MD (08/12/2018 7:49 AM) [facility]
[2018-08-12] MEDS ORDERED: POTASSIUM CHLORIDE 20 MEQ/15 ML ORAL LIQUID. PO ONE (08:00)
[2018-08-12] MEDS ORDERED: MAGNESIUM SULFATE 1GM 100 ML IV ONE ×2 (08:00→09:00)
--- NOTE | 2018-08-12 08:02 | RAD ---
Portable chest, 08/12/2018: HISTORY: Seizure Comparison is made to a study from 04/29/2018. The heart size and pulmonary vascularity are normal. No pulmonary infiltrate is seen. There is no evidence of pleural fluid. IMPRESSION: No acute cardiopulmonary abnormality is detected. Electronically signed by: Jerrod Brewer MD (08/12/2018 7:58 AM) [facility]
[2018-08-12] MEDS ORDERED: chlordiazePOXIDE HCL 25 MG CAPSULE PO PRN ×2 (08:30)
--- NOTE | 2018-08-12 08:56 | PDOC1 ---
History and Physical Date of Admission Date of Admission DATE: 08/12/18 TIME: 08:52 Identification/Chief Complaint Chief Complaint SZ History of Present Illness History of Present Illness 43-year-old female admitted because of seizures thought to be alcohol related. She was here April 2018 under my care for seizure thought to be alcohol related too. But mother was adamant that her alcohol consumption was not wicked. Her alcohol levels are less than 10. The labs are remarkable for mild hyponatremia 133, significant hypomagnesemia at 0.9 and mild hypokalemia 3.3. She had the same Iab abnormalities in April 2018. She does not complain of anything. She has no insurance. She claims she is supposed to be on seizure medication? Which I do not see on file. Claims her last intake of meds was April. She has an appointment with Dr. Chitra guy on September 2017 hence is not taking any meds. Blood pressure on the high side. Admitted for seizure related to etoh. severe hypomagnesemia and accel HTN. There Was no loss of bladder or bowel incontinence during the seizure episode. Son witnessed the SZ> Slightly prolonged QT at 498. Past Medical History Cardiovascular: HTN Past Surgical History Past Surgical History: No pertinent history Family History Family History: Hypertension Social History Smoke: No ALCOHOL: heavy Drugs: Marijuana Current Medications Current Medications Current Medications Sodium Chloride 1,000 ml @ 1,000 mls/hr 1X ONCE IV Last administered on 08/12at 07:18; Start 08/12/18 at 07:00; Stop 08/12/18 at 07:59; Status DC Lorazepam (Ativan) 2 mg 1X ONCE IV Last administered on 08/12/18at 07:18; Start 08/12/18 at 07:00; Stop 08/12/18 at 07:01; Status DC Thiamine Mononitrate (Vitamin B-1) 100 mg 1X ONCE PO Last administered on at 07:05; Start 08/12/18 at 07:00; Stop 08/12/18 at 07:01; Status DC Multivitamins/ Minerals (I-Tramaine) 1 tab 1X ONCE PO Last administered on at 07:05; Start 08/12/18 at 07:00; Stop 08/12/18 at 07:01; Status DC Metronidazole (Flagyl) 2,000 mg 1X ONCE PO Last administered on 08/12/18at 08: 07; Start 08/12/18 at 07:30; Stop 08/12/18 at 07:31; Status DC Magnesium Sulfate/ Dextrose 100 ml @ 100 mls/hr 1X ONCE IV Last administered on 08/12/18at 08:00; Start 08/12/18 at 08:00; Stop 08/12/18 at 08:59 Potassium Chloride (KCl Oral Soln) 40 meq 1X ONCE PO Last administered on at 08:24; Start 08/12/18 at 08:00; Stop 08/12/18 at 08:01; Status DC Magnesium Sulfate/ Dextrose 100 ml @ 100 mls/hr 1X ONCE IV ; Start 08/12/18 at 09:00; Stop 08/12/18 at 09:59 Multivitamins 10 ml/Thiamine HCl 100 mg/Folic Acid 1 mg/Sodium Chloride 1,011.2 ml @ 100 mls/ hr DAILY IV ; Start 08/12/18 at 09:00; Stop 08/16/18 at 19:07 Multivitamins (Thera M Plus) 1 tab DAILY PO ; Start 08/12/18 at 09:00 Folic Acid (Folic Acid) 1 mg DAILY PO ; Start 08/12/18 at 09:00 Chlordiazepoxide (Librium) 50 mg PRN Q1HR PRN PO For CIWA 8-14; Start at 08:30 Chlordiazepoxide (Librium) 100 mg PRN Q1HR PRN PO For CIWA 15 or greater; Start 08/12/18 at 08:30 Lorazepam (Ativan) 2 mg PRN Q1HR PRN IV For CIWA 8-14; Start 08/12/18 at 08:30 Labetalol HCl (Normodyne Iv Push) 20 mg PRN Q2HR PRN IVP HYPERTENSION, SEE COMMENTS; Start 08/12/18 at 09:00; Status UNV Magnesium Sulfate/ Dextrose 100 ml @ 25 mls/hr 1X ONCE IV ; Start 08/12/18 at 09:00; Stop 08/12/18 at 12:59; Status UNV Potassium Chloride/Sodium Chloride 1,000 ml @ 100 mls/hr 1X ONCE IV ; Start 08/12/18 at 09:00; Stop 08/12/18 at 18:59; Status UNV Potassium Chloride (Klor-Con) 40 meq 1X ONCE PO ; Start 08/12/18 at 09:00; Stop 08/12/18 at 09:01; Status UNV Folic Acid (Folic Acid) 1 mg DAILY PO ; Start 08/12/18 at 09:00; Status UNV Multivitamins (Thera M Plus) 1 tab DAILY PO ; Start 08/12/18 at 09:00; Status UNV Potassium Chloride (Klor-Con) 40 meq DAILY PO ; Start 08/12/18 at 09:00; Status UNV Non-Formulary Medication (Amlodipine Besylate/ Benazepril (Amlodipine- Benazepril 5-20 Mg)) 1 cap DAILY PO ; Start 08/12/18 at 09:00; Status UNV Non-Formulary Medication (Thiamine Mononitrate (Vitamin B-1)) 100 mg DAILY PO ; Start 08/12/18 at 09:00; Status UNV Active Scripts Active Thera-M Tablet (Multivits,Ca,Minerals/Iron/Fa) 1 Each Tablet 1 Tab PO DAILY 30 Days Vitamin B-1 (Thiamine Mononitrate) 100 Mg Tablet 100 Mg PO DAILY 30 Days Folic Acid 1 Mg Tablet 1 Mg PO DAILY 30 Days Klor-Con M20 (Potassium Chloride) 20 Meq Tab.er.prt 40 Meq PO DAILY 10 Days Amlodipine-Benazepril 5-20 Mg (Amlodipine Besylate/Benazepril) 1 Each Capsule 1 Cap PO DAILY Allergies Allergies: Coded Allergies: Penicillins (Verified Allergy, Intermediate, 12/20/16) ROS Review of System A 14 point ROS was completed with the following noted as positive: Other systems reviewed and negative. \CONSTITUTIONAL: No fever or chills EYES: No recent changes SKIN: No rash or itching CARDIOVASCULAR: No chest pain, syncope, palpitations, or edema RESPIRATORY: No SOB or cough GASTROINTESTINAL: No nausea, vomiting or abdominal pain NEUROLOGICAL: No headaches or weakness ENDOCRINE: No cold or heat intolerance GENITOURINARY: No urgency or frequency of urination MUSCULOSKELETAL: No back pain or joint pain LYMPHATICS: No enlarged lymph nodes PSYCHIATRIC: No anxiety or depression Physical Exam General: Alert, Oriented X3, Cooperative, No acute distress HEENT: Atraumatic, PERRLA, EOMI Lungs: Clear to auscultation, Normal air movement Heart: S1S2, RRR, no thrills, no rubs, no gallops Cardiovascular: S1, S2 Breasts: Normal, Rt breast nml w/o mass, Lt breast nml w/o mass, Nipples normal Abdomen: Normal bowel sounds, Soft, No tenderness, No hepatosplenomegaly, No masses Rectal Exam: not examined PELVIC: Nml ext genitalia Extremities: No clubbing, No cyanosis, No edema, Normal pulses, No tenderness/ swelling Skin: No rashes, No breakdown, No significant lesion Neuro: Normal gait, Normal speech, Strength at 5/5 X4 ext, Normal tone, Sensation intact, Cranial nerves 3-12 NL, Reflexes 2+ Psych/Mental Status: Mental status NL, Mood NL Vitals Vitals Vital Signs Date Time Temp Pulse Resp B/P (MAP) Pulse Ox O2 Delivery O2 Flow Rate FiO2 08/12/18 08:15 84 18 99 08/12/18 06:20 98.2 170/109 (129) Room Air 98.2 Labs Labs Laboratory Tests Test 08/12/18 06:20 08/12/18 07:05 Urine Collection Type Unknown Urine Color Yellow Urine Clarity Clear Urine pH 6.0 Urine Specific [place] 1.015 Urine Protein 100 mg/dL (NEG-TRACE) Urine Glucose (UA) Negative mg/dL (NEG) Urine Ketones (Stick) >=80 mg/dL (NEG) Urine Blood Moderate (NEG) Urine Nitrite Negative (NEG) Urine Bilirubin Negative (NEG) Urine Urobilinogen Dipstick 0.2 mg/dL (0.2 mg/dL) Urine Leukocyte Esterase Small (NEG) Urine RBC Occ /HPF (0-2) Urine WBC 1-4 /HPF (0-4) Urine Squamous Epithelial Cells Mod /LPF Urine Bacteria 0 /HPF (0-FEW) Urine Trichomonas Present Urine Opiates Screen Neg (NEG) Urine Methadone Screen Neg (NEG) Urine Barbiturates Neg (NEG) Urine Phencyclidine Screen Neg (NEG) Urine Amphetamine/Methamphetamine Neg (NEG) Urine Benzodiazepines Screen Pos (NEG) Urine Cocaine Screen Neg (NEG) Urine Cannabinoids Screen Neg (NEG) Urine Ethyl Alcohol Neg (NEG) White Blood Count 4.3 x10^3/uL (4.0-11.0) Red Blood Count 3.75 x10^6/uL (3.50-5.40) Hemoglobin 13.7 g/dL (12.0-15.5) Hematocrit 38.6 % (36.0-47.0) Mean Corpuscular Volume 103 fL (79-100) Mean Corpuscular Hemoglobin 37 pg (25-35) Mean Corpuscular Hemoglobin Concent 35 g/dL (31-37) Red Cell Distribution Width 14.5 % (11.5-14.5) Platelet Count 113 x10^3/uL (140-400) Neutrophils (%) (Auto) 68 % (31-73) Lymphocytes (%) (Auto) 19 % (24-48) Monocytes (%) (Auto) 13 % (0-9) Eosinophils (%) (Auto) 0 % (0-3) Basophils (%) (Auto) 1 % (0-3) Neutrophils # (Auto) 2.9 x10^3uL (1.8-7.7) Lymphocytes # (Auto) 0.8 x10^3/uL (1.0-4.8) Monocytes # (Auto) 0.6 x10^3/uL (0.0-1.1) Eosinophils # (Auto) 0.0 x10^3/uL (0.0-0.7) Basophils # (Auto) 0.0 x10^3/uL (0.0-0.2) Maternal Serum HCG Beta Subunit 1 mIU/mL (0-5) Sodium Level 133 mmol/L (136-145) Potassium Level 3.3 mmol/L (3.5-5.1) Chloride Level 87 mmol/L (98-107) Carbon Dioxide Level 29 mmol/L (21-32) Anion Gap 17 (6-14) Blood Urea Nitrogen 6 mg/dL (7-20) Creatinine 0.9 mg/dL (0.6-1.0) Estimated GFR (Cockcroft-Gault) 81.9 BUN/Creatinine Ratio 7 (6-20) Glucose Level 177 mg/dL (70-99) Calcium Level 9.5 mg/dL (8.5-10.1) Magnesium Level 0.9 mg/dL (1.8-2.4) Total Bilirubin 0.9 mg/dL (0.2-1.0) Aspartate Amino Transf (AST/SGOT) 173 U/L (15-37) Alanine Aminotransferase (ALT/SGPT) 63 U/L (14-59) Alkaline Phosphatase 143 U/L (46-116) Total Protein 8.9 g/dL (6.4-8.2) Albumin 4.0 g/dL (3.4-5.0) Albumin/Globulin Ratio 0.8 (1.0-1.7) Lipase 144 U/L (73-393) Ethyl Alcohol Level < 10 mg/dL (0-10) Laboratory Tests Test 08/12/18 06:20 08/12/18 07:05 Urine Collection Type Unknown Urine Color Yellow Urine Clarity Clear Urine pH 6.0 Urine Specific [place] 1.015 Urine Protein 100 mg/dL (NEG-TRACE) Urine Glucose (UA) Negative mg/dL (NEG) Urine Ketones (Stick) >=80 mg/dL (NEG) Urine Blood Moderate (NEG) Urine Nitrite Negative (NEG) Urine Bilirubin Negative (NEG) Urine Urobilinogen Dipstick 0.2 mg/dL (0.2 mg/dL) Urine Leukocyte Esterase Small (NEG) Urine RBC Occ /HPF (0-2) Urine WBC 1-4 /HPF (0-4) Urine Squamous Epithelial Cells Mod /LPF Urine Bacteria 0 /HPF (0-FEW) Urine Trichomonas Present Urine Opiates Screen Neg (NEG) Urine Methadone Screen Neg (NEG) Urine Barbiturates Neg (NEG) Urine Phencyclidine Screen Neg (NEG) Urine Amphetamine/Methamphetamine Neg (NEG) Urine Benzodiazepines Screen Pos (NEG) Urine Cocaine Screen Neg (NEG) Urine Cannabinoids Screen Neg (NEG) Urine Ethyl Alcohol Neg (NEG) White Blood Count 4.3 x10^3/uL (4.0-11.0) Red Blood Count 3.75 x10^6/uL (3.50-5.40) Hemoglobin 13.7 g/dL (12.0-15.5) Hematocrit 38.6 % (36.0-47.0) Mean Corpuscular Volume 103 fL (79-100) Mean Corpuscular Hemoglobin 37 pg (25-35) Mean Corpuscular Hemoglobin Concent 35 g/dL (31-37) Red Cell Distribution Width 14.5 % (11.5-14.5) Platelet Count 113 x10^3/uL (140-400) Neutrophils (%) (Auto) 68 % (31-73) Lymphocytes (%) (Auto) 19 % (24-48) Monocytes (%) (Auto) 13 % (0-9) Eosinophils (%) (Auto) 0 % (0-3) Basophils (%) (Auto) 1 % (0-3) Neutrophils # (Auto) 2.9 x10^3uL (1.8-7.7) Lymphocytes # (Auto) 0.8 x10^3/uL (1.0-4.8) Monocytes # (Auto) 0.6 x10^3/uL (0.0-1.1) Eosinophils # (Auto) 0.0 x10^3/uL (0.0-0.7) Basophils # (Auto) 0.0 x10^3/uL (0.0-0.2) Maternal Serum HCG Beta Subunit 1 mIU/mL (0-5) Sodium Level 133 mmol/L (136-145) Potassium Level 3.3 mmol/L (3.5-5.1) Chloride Level 87 mmol/L (98-107) Carbon Dioxide Level 29 mmol/L (21-32) Anion Gap 17 (6-14) Blood Urea Nitrogen 6 mg/dL (7-20) Creatinine 0.9 mg/dL (0.6-1.0) Estimated GFR (Cockcroft-Gault) 81.9 BUN/Creatinine Ratio 7 (6-20) Glucose Level 177 mg/dL (70-99) Calcium Level 9.5 mg/dL (8.5-10.1) Magnesium Level 0.9 mg/dL (1.8-2.4) Total Bilirubin 0.9 mg/dL (0.2-1.0) Aspartate Amino Transf (AST/SGOT) 173 U/L (15-37) Alanine Aminotransferase (ALT/SGPT) 63 U/L (14-59) Alkaline Phosphatase 143 U/L (46-116) Total Protein 8.9 g/dL (6.4-8.2) Albumin 4.0 g/dL (3.4-5.0) Albumin/Globulin Ratio 0.8 (1.0-1.7) Lipase 144 U/L (73-393) Ethyl Alcohol Level < 10 mg/dL (0-10) VTE Prophylaxis Ordered VTE Prophylaxis Devices: Yes VTE Pharmacological Prophylaxi: Yes Assessment/Plan Assessment/Plan Seizure related to alcohol use -Last alcohol was yesterday Fall, no injuries Hyponatremia, hypokalemia with severe hypomagnesemia in an alcoholic Thrombocytopenia in an alcoholic Elevated LFTs is an alcoholic PLAN: CIWA, replete mag then recheck tmr Replace KCL PO x 1 then daily IVF NS x 1 for the Na 133 Abstain from etoh SZ prec NO neuro consult needed as SZ related to etoh PT/OT if gait insteady SEEn at ER I have reconciled home meds I gave her jimbo and charlie reference FF up MD Delroy sep 2018 Will need rx for librium and BP meds on dc HAMZAH BOB MD Aug 12, 2018 08:56
[2018-08-12] MEDS ORDERED: FOLIC ACID 1 MG TABLET. PO SCH (09:00)
[2018-08-12] MEDS ORDERED: MULTIVIT INFUSN,ADULT 4,VIT K 10 ML, THIAMINE INJ 100 MG, FOLIC ACID INJ 1 MG in IV NOR... IV SCH (09:00)
[2018-08-12] MEDS ORDERED: LABETALOL 20 MG/4 ML DISP.SYRIN. IVP PRN (09:00)
[2018-08-12] MEDS ORDERED: POTASSIUM CHLORIDE 20 MEQ TABLET.ER. PO ONE (09:00)
[2018-08-12] MEDS ORDERED: MULTIVITAMIN with MINERAL TABLET. PO SCH (09:00)
[2018-08-12] MEDS: MULTIVITAMIN with MINERAL TABLET. PO SCH (09:22)
[2018-08-12] MEDS: FOLIC ACID 1 MG TABLET. PO SCH (09:22)
[2018-08-12] MEDS ORDERED: MAGNESIUM SULFATE 4GM 100 ML IV ONE (09:30)
[2018-08-12 09:45] VITALS: BP 139/97
[2018-08-12 11:00] VITALS: BP 138/99
--- NOTE | 2018-08-12 13:48 | RAD ---
EXAMINATION: Magnetic resonance imaging (MRI) of the brain and brainstem without contrast 08/12/2018 11:19 AM HISTORY: Seizures. TECHNIQUE: Multiplanar multi-weighted MRI of the brain and brainstem was performed without intravenous contrast using the general brain protocol. COMPARISON: None available. FINDINGS: The scalp and calvarium are normal. The superior sagittal sinus demonstrates normal venous flow. The corpus callosum is normal in shape and signal intensity. The posterior fossa is unremarkable. The pituitary and sella are normal. The brainstem and craniocervical junction are unremarkable. Hippocampi are symmetric in signal intensity and morphology. Amygdala appear normal. There is no heterotopic garner matter. No findings to suggest confirmation of cortical development. Insular ribbon appears normal. Diffusion weighted images reveal no hyperintensities to suggest acute cerebral infarction. The susceptibility weighted sequences reveal no evidence of acute or chronic hemorrhage. The ventricles are normal in size and position without evidence of hydrocephalus. The paranasal sinuses are normal. The visualized portions of the mastoids are unremarkable. The orbits appear normal. Normal flow voids are demonstrated in the carotid arteries and basilar artery. IMPRESSION: Within the limitations of a noncontrast examination, there is no structural abnormality to account for patient's seizures. Electronically signed by: Diana Thorne MD (08/12/2018 1:45 PM) [id number]
[2018-08-12] MEDS: LISINOPRIL 20 MG TABLET PO SCH (14:26)
[2018-08-12] MEDS: THIAMINE 100 MG TABLET. PO SCH (14:26)
[2018-08-12] MEDS: amLODIPine BESYLATE 5 MG TABLET PO SCH (14:27)
--- NOTE | 2018-08-12 14:51 | PDOC2 ---
NEUROLOGY CONSULT Date of Admission Date of Admission DATE: 08/12/18 TIME: 14:37 Reason for Consult Reason for Consult: Seizures Referring Physician Referring Physician: Dr. Kapoor Source Source: Caregiver (aunt), Chart review, Patient History of Present Illness History of Present Illness History of Present Illness The patient is a 43-year-old right-handed female who had a seizure yesterday at a [employer] gathering. She had 1 beer yesterday. She last had large amounts of alcohol 1 or 2 weeks ago but had been on a Librium taper but ran out of the medication. I last saw her 19 months ago when she was admitted for alcohol-related seizure. I felt there was no need for additional workup given that seizure was obviously provoked by alcohol. The patient has never been on anticonvulsants, had electroencephalogram, or MRI. There is no history of stroke or head injury. Family History Family History: No pertinent hx Social History Social History Stopped drinking 2 days ago, Current Medications Current Medications Current Medications Diphtheria/ Tetanus/Acell Pertussis (Boostrix) 0.5 ml ONCE ONCE VAX IM Last administered on 12/19/16 13:53; Start 12/19/16 at 13:00; Stop 12/19/16 at 13:14; Status DC Lidocaine/ Epinephrine (Let Topical) 3 ml 1X ONCE TP Last administered on 13:54; Start 12/19/16 at 13:00; Stop 12/19/16 at 13:14; Status DC Diazepam (Valium) 5 mg 1X ONCE IV Last administered on 12/19/16 13:50; Start 12/19/16 at 13:00; Stop 12/19/16 at 13:14; Status DC Sodium Chloride 1,000 ml @ 1,000 mls/hr 1X ONCE IV Last administered on 13:52; Start 12/19/16 at 13:00; Stop 12/19/16 at 13:59; Status DC Diazepam (Valium) 5 mg PRN Q5MIN PRN IV COMM Last administered on 12/19/16 15: 24; Start 12/19/16 at 13:15 Ondansetron HCl (Zofran) 4 mg PRN Q8HRS PRN IV NAUSEA/VOMITING; Start 12/19/16 at 15:30; Stop 12/20/16 at 15:29 Morphine Sulfate 2 mg PRN Q2HR PRN IV PAIN; Start 12/19/16 at 15:30; Stop at 15:29 Acetaminophen (Tylenol) 650 mg PRN Q4HRS PRN PO FEVER; Start 12/19/16 at 15:30; Stop 12/20/16 at 15:29 Multivitamins 10 ml/Thiamine HCl 100 mg/Folic Acid 1 mg/Sodium Chloride 1,011.2 ml @ 100 mls/ hr DAILY IV ; Start 12/19/16 at 16:00; Stop 12/23/16 at 19:07 Diazepam (Valium) 5 mg PRN Q5MIN PRN IV COMM; Start 12/19/16 at 15:30 Non-Formulary Medication 1 cap DAILY PO ; Start 12/20/16 at 09:00; Stop 12/20/16 at 09:00; Status DC Chlordiazepoxide (Librium) 50 mg TID PO ; Start 12/19/16 at 16:05 Acetaminophen (Tylenol) 650 mg PRN Q6HRS PRN PO FEVER; Start 12/19/16 at 16:00 Ondansetron HCl (Zofran) 4 mg PRN Q6HRS PRN IV NAUSEA/VOMITING; Start 12/19/16 at 16:00 Tramadol HCl (Ultram) 50 mg PRN Q6HRS PRN PO PAIN; Start 12/19/16 at 16:00 Amlodipine Besylate (Norvasc) 5 mg DAILY PO Last administered on 12/19/16t 14:30 ; Start 12/19/16 at 14:30 Enoxaparin Sodium (Lovenox 40mg Syringe) 40 mg DAILY08 SQ ; Start 12/20/16 at 08: 00 Hydralazine HCl (Apresoline) 10 mg PRN Q4HRS PRN IVP ELEVATED BP, SEE COMMENTS ; Start 12/19/16 at 16:00 Lisinopril (Prinivil) 20 mg DAILY PO ; Start 12/19/16 at 16:30 Active Scripts Active Reported Amlodipine-Benazepril 5-20 Mg (Amlodipine Besylate/Benazepril) 1 Each Capsule 1 Cap PO DAILY Allergies Allergies: Coded Allergies: Penicillins (Unverified Allergy, Intermediate, 12/19/16) ROS Review of System Patient denies fevers, chills, weight loss, dyspnea, angina, abdominal pain, change in bowels, or dysuria. 14 point review of systems is negative. Physical Exam Physical Examination PHYSICAL EXAMINATION: Vital signs: see above. General appearance is normal and in no acute distress. HEENT: Normocephalic. Scalp laceration, occiput. Eyes, nose, ears, and throat are unremarkable. Neck is supple. No lymphadenopathy. No bruits are heard over the carotid artery. No crepitus. NEUROLOGICAL EXAMINATION: Mental Status Examination: Alert. Oriented to time, place, and person. Answers questions and follows commends. Pupils are equal round and reactive to light and accommodation. Funduscopic exam: No papilledema. Extraocular movements are intact. Visual field exam shows no defect on the direct confrontation. No motor or sensory deficits on the facial exam. Uvula in the midline and the soft palate elevated symmetrically. No deviation of the tongue to any direction. Gross hearing is normal. Shoulder shrug normal. Muscle tone is normal. Muscle strength is 5. There is mild tremulousness. Deep tendon reflexes are 2+ all around. Plantar reflex is with flexion response bilaterally. Cchead-bx-kiyv test performance is accurate. Tandem walk test is accurate. Alternative movements are accurate. Romberg test is negative. Gait is normal. Sensory exam shows no deficits. No cerebellar signs are elicited. Vitals VITALS Vital Signs Date Time Temp Pulse Resp B/P (MAP) Pulse Ox O2 Delivery O2 Flow Rate FiO2 12/19/16 14:30 104 133/89 12/19/16 13:33 28 97 Room Air 12/19/16 12:25 98.6 98.6 Labs Labs Laboratory Tests Test 12/19/16 13:11 12/19/16 13:45 12/19/16 14:02 Bedside Urine HCG, Qualitative Hcg negative (Negative) White Blood Count 5.0 x10^3/uL (4.0-11.0) Red Blood Count 3.53 x10^6/uL (3.50-5.40) Hemoglobin 13.2 g/dL (12.0-15.5) Hematocrit 39.6 % (36.0-47.0) Mean Corpuscular Volume 112 fL (79-100) Mean Corpuscular Hemoglobin 38 pg (25-35) Mean Corpuscular Hemoglobin Concent 34 g/dL (31-37) Red Cell Distribution Width 16.7 % (11.5-14.5) Platelet Count 147 x10^3/uL (140-400) Neutrophils (%) (Auto) 82 % (31-73) Lymphocytes (%) (Auto) 9 % (24-48) Monocytes (%) (Auto) 9 % (0-9) Eosinophils (%) (Auto) 0 % (0-3) Basophils (%) (Auto) 1 % (0-3) Neutrophils # (Auto) 4.0 x10^3uL (1.8-7.7) Lymphocytes # (Auto) 0.4 x10^3/uL (1.0-4.8) Monocytes # (Auto) 0.4 x10^3/uL (0.0-1.1) Eosinophils # (Auto) 0.0 x10^3/uL (0.0-0.7) Basophils # (Auto) 0.0 x10^3/uL (0.0-0.2) Platelet Estimate Adequate (ADEQUATE) Giant Platelets Few Polychromasia Slight Basophilic Stippling Present Anisocytosis Slight Macrocytosis Mod Pappenheimer Bodies Occ Sodium Level 135 mmol/L (136-145) Potassium Level 3.5 mmol/L (3.5-5.1) Chloride Level 92 mmol/L (98-107) Carbon Dioxide Level 23 mmol/L (21-32) Anion Gap 20 (6-14) Blood Urea Nitrogen 7 mg/dL (7-20) Creatinine 0.8 mg/dL (0.6-1.0) Estimated GFR (Cockcroft-Gault) 94.7 BUN/Creatinine Ratio 9 (6-20) Glucose Level 107 mg/dL (70-99) Calcium Level 8.9 mg/dL (8.5-10.1) Phosphorus Level 2.2 mg/dL (2.6-4.7) Magnesium Level 1.1 mg/dL (1.8-2.4) Total Bilirubin 1.5 mg/dL (0.2-1.0) Aspartate Amino Transf (AST/SGOT) 272 U/L (15-37) Alanine Aminotransferase (ALT/SGPT) 81 U/L (14-59) Alkaline Phosphatase 116 U/L (46-116) Total Protein 9.1 g/dL (6.4-8.2) Albumin 4.2 g/dL (3.4-5.0) Albumin/Globulin Ratio 0.9 (1.0-1.7) Salicylates Level < 2.8 mg/dL (2.8-20.0) Salicylate Last Dose Date Unk Salicylate Last Dose Time Unk Acetaminophen Level < 10 mcg/ml (10-30) Acetaminophen Last Dose Date Unk Acetaminophen Last Dose Time Unk Ethyl Alcohol Level < 10 mg/dL (0-10) Urine Collection Type Unknown Urine Color Yellow Urine Clarity Clear Urine pH 5.5 Urine Specific [place] 1.015 Urine Protein 100 mg/dL (NEG-TRACE) Urine Glucose (UA) Negative mg/dL (NEG) Urine Ketones (Stick) >=80 mg/dL (NEG) Urine Blood Moderate (NEG) Urine Nitrite Negative (NEG) Urine Bilirubin Negative (NEG) Urine Urobilinogen Dipstick 0.2 mg/dL (0.2 mg/dL) Urine Leukocyte Esterase Small (NEG) Urine RBC 0 /HPF (0-2) Urine WBC 11-20 /HPF (0-4) Urine Squamous Epithelial Cells Mod /LPF Urine Bacteria 0 /HPF (0-FEW) Urine Hyaline Casts Moderate /HPF Urine Mucus Mod /LPF Urine Opiates Screen Neg (NEG) Urine Methadone Screen Neg (NEG) Urine Barbiturates Neg (NEG) Urine Phencyclidine Screen Neg (NEG) Urine Amphetamine/Methamphetamine Neg (NEG) Urine Benzodiazepines Screen Neg (NEG) Urine Cocaine Screen Neg (NEG) Urine Cannabinoids Screen Neg (NEG) Urine Ethyl Alcohol Neg (NEG) Laboratory Tests Test 12/19/16 13:11 12/19/16 13:45 12/19/16 14:02 Bedside Urine HCG, Qualitative Hcg negative (Negative) White Blood Count 5.0 x10^3/uL (4.0-11.0) Red Blood Count 3.53 x10^6/uL (3.50-5.40) Hemoglobin 13.2 g/dL (12.0-15.5) Hematocrit 39.6 % (36.0-47.0) Mean Corpuscular Volume 112 fL (79-100) Mean Corpuscular Hemoglobin 38 pg (25-35) Mean Corpuscular Hemoglobin Concent 34 g/dL (31-37) Red Cell Distribution Width 16.7 % (11.5-14.5) Platelet Count 147 x10^3/uL (140-400) Neutrophils (%) (Auto) 82 % (31-73) Lymphocytes (%) (Auto) 9 % (24-48) Monocytes (%) (Auto) 9 % (0-9) Eosinophils (%) (Auto) 0 % (0-3) Basophils (%) (Auto) 1 % (0-3) Neutrophils # (Auto) 4.0 x10^3uL (1.8-7.7) Lymphocytes # (Auto) 0.4 x10^3/uL (1.0-4.8) Monocytes # (Auto) 0.4 x10^3/uL (0.0-1.1) Eosinophils # (Auto) 0.0 x10^3/uL (0.0-0.7) Basophils # (Auto) 0.0 x10^3/uL (0.0-0.2) Platelet Estimate Adequate (ADEQUATE) Giant Platelets Few Polychromasia Slight Basophilic Stippling Present Anisocytosis Slight Macrocytosis Mod Pappenheimer Bodies Occ Sodium Level 135 mmol/L (136-145) Potassium Level 3.5 mmol/L (3.5-5.1) Chloride Level 92 mmol/L (98-107) Carbon Dioxide Level 23 mmol/L (21-32) Anion Gap 20 (6-14) Blood Urea Nitrogen 7 mg/dL (7-20) Creatinine 0.8 mg/dL (0.6-1.0) Estimated GFR (Cockcroft-Gault) 94.7 BUN/Creatinine Ratio 9 (6-20) Glucose Level 107 mg/dL (70-99) Calcium Level 8.9 mg/dL (8.5-10.1) Phosphorus Level 2.2 mg/dL (2.6-4.7) Magnesium Level 1.1 mg/dL (1.8-2.4) Total Bilirubin 1.5 mg/dL (0.2-1.0) Aspartate Amino Transf (AST/SGOT) 272 U/L (15-37) Alanine Aminotransferase (ALT/SGPT) 81 U/L (14-59) Alkaline Phosphatase 116 U/L (46-116) Total Protein 9.1 g/dL (6.4-8.2) Albumin 4.2 g/dL (3.4-5.0) Albumin/Globulin Ratio 0.9 (1.0-1.7) Salicylates Level < 2.8 mg/dL (2.8-20.0) Salicylate Last Dose Date Unk Salicylate Last Dose Time Unk Acetaminophen Level < 10 mcg/ml (10-30) Acetaminophen Last Dose Date Unk Acetaminophen Last Dose Time Unk Ethyl Alcohol Level < 10 mg/dL (0-10) Urine Collection Type Unknown Urine Color Yellow Urine Clarity Clear Urine pH 5.5 Urine Specific [place] 1.015 Urine Protein 100 mg/dL (NEG-TRACE) Urine Glucose (UA) Negative mg/dL (NEG) Urine Ketones (Stick) >=80 mg/dL (NEG) Urine Blood Moderate (NEG) Urine Nitrite Negative (NEG) Urine Bilirubin Negative (NEG) Urine Urobilinogen Dipstick 0.2 mg/dL (0.2 mg/dL) Urine Leukocyte Esterase Small (NEG) Urine RBC 0 /HPF (0-2) Urine WBC 11-20 /HPF (0-4) Urine Squamous Epithelial Cells Mod /LPF Urine Bacteria 0 /HPF (0-FEW) Urine Hyaline Casts Moderate /HPF Urine Mucus Mod /LPF Urine Opiates Screen Neg (NEG) Urine Methadone Screen Neg (NEG) Urine Barbiturates Neg (NEG) Urine Phencyclidine Screen Neg (NEG) Urine Amphetamine/Methamphetamine Neg (NEG) Urine Benzodiazepines Screen Neg (NEG) Urine Cocaine Screen Neg (NEG) Urine Cannabinoids Screen Neg (NEG) Urine Ethyl Alcohol Neg (NEG) Images Images CT head: Noncontrast images of the head were obtained. No prior imaging is available. The calvarium appears unremarkable. The visualized paranasal sinuses appear normal. No subdural or epidural hematoma is seen. There is no hemorrhage. There is no mass or midline shift. No acute finding is apparent. IMPRESSION: No acute or significant finding seen on noncontrast CT images of the head Assessment/Plan Assessment/Plan Impression: Alcohol-related seizure Scalp laceration Recommendation: Agree with your management. EEG and MRI would not change control manager given that this is obviously a provoked seizure. Discussed seizure precautions with patient, including no driving for 6 months seizure-free. Past Medical History Cardiovascular: HTN Pulmonary: Asthma CENTRAL NERVOUS SYSTEM: Seizure GI: GERD Past Surgical History Past Surgical History: Hysterectomy Family History Family History: No pertinent hx (no family history of seizures) Social History Social History Single, large amounts of alcohol, rare tobacco, occasional marijuana Current Medications Current Medications Current Medications Sodium Chloride 1,000 ml @ 1,000 mls/hr 1X ONCE IV Last administered on 08/12at 07:18; Start 08/12/18 at 07:00; Stop 08/12/18 at 07:59; Status DC Lorazepam (Ativan) 2 mg 1X ONCE IV Last administered on 08/12/18at 07:18; Start 08/12/18 at 07:00; Stop 08/12/18 at 07:01; Status DC Thiamine Mononitrate (Vitamin B-1) 100 mg 1X ONCE PO Last administered on at 07:05; Start 08/12/18 at 07:00; Stop 08/12/18 at 07:01; Status DC Multivitamins/ Minerals (I-Tramaine) 1 tab 1X ONCE PO Last administered on at 07:05; Start 08/12/18 at 07:00; Stop 08/12/18 at 07:01; Status DC Metronidazole (Flagyl) 2,000 mg 1X ONCE PO Last administered on 08/12/18at 08: 07; Start 08/12/18 at 07:30; Stop 08/12/18 at 07:31; Status DC Magnesium Sulfate/ Dextrose 100 ml @ 100 mls/hr 1X ONCE IV Last administered on 08/12/18at 08:00; Start 08/12/18 at 08:00; Stop 08/12/18 at 08:59; Status DC Potassium Chloride (KCl Oral Soln) 40 meq 1X ONCE PO Last administered on at 08:24; Start 08/12/18 at 08:00; Stop 08/12/18 at 08:01; Status DC Magnesium Sulfate/ Dextrose 100 ml @ 100 mls/hr 1X ONCE IV ; Start 08/12/18 at 09:00; Stop 08/12/18 at 09:59; Status DC Multivitamins 10 ml/Thiamine HCl 100 mg/Folic Acid 1 mg/Sodium Chloride 1,011.2 ml @ 100 mls/ hr DAILY IV Last administered on 08/12/18at 10:35; Start at 09:00; Stop 08/16/18 at 19:07 Multivitamins (Thera M Plus) 1 tab DAILY PO Last administered on 08/12/18at 09: 22; Start 08/12/18 at 09:00 Folic Acid (Folic Acid) 1 mg DAILY PO Last administered on 08/12/18at 09:22; Start 08/12/18 at 09:00 Chlordiazepoxide (Librium) 50 mg PRN Q1HR PRN PO For CIWA 8-14; Start at 08:30 Chlordiazepoxide (Librium) 100 mg PRN Q1HR PRN PO For CIWA 15 or greater; Start 08/12/18 at 08:30 Lorazepam (Ativan) 2 mg PRN Q1HR PRN IV For CIWA 8-14; Start 08/12/18 at 08:30 Labetalol HCl (Normodyne Iv Push) 20 mg PRN Q2HR PRN IVP HYPERTENSION, SEE COMMENTS; Start 08/12/18 at 09:00 Magnesium Sulfate/ Dextrose 100 ml @ 25 mls/hr 1X ONCE IV ; Start 08/12/18 at 09:30; Stop 08/12/18 at 09:30; Status DC Potassium Chloride/Sodium Chloride 1,000 ml @ 100 mls/hr 1X ONCE IV ; Start 08/12/18 at 10:00; Stop 08/12/18 at 19:59 Potassium Chloride (Klor-Con) 40 meq 1X ONCE PO ; Start 08/12/18 at 09:00; Stop 08/12/18 at 09:00; Status DC Folic Acid (Folic Acid) 1 mg DAILY PO ; Start 08/12/18 at 09:00; Status UNV Multivitamins (Thera M Plus) 1 tab DAILY PO ; Start 08/12/18 at 09:00; Status UNV Potassium Chloride (Klor-Con) 40 meq DAILY PO ; Start 08/13/18 at 09:00 Amlodipine Besylate (Norvasc) 5 mg DAILY PO Last administered on 08/12/18at 14: 27; Start 08/12/18 at 09:00 Thiamine Mononitrate (Vitamin B-1) 100 mg DAILY PO Last administered on at 14:26; Start 08/12/18 at 09:00 Lisinopril (Prinivil) 20 mg DAILY PO Last administered on 08/12/18at 14:26; Start 08/12/18 at 09:00 Active Scripts Active Thera-M Tablet (Multivits,Ca,Minerals/Iron/Fa) 1 Each Tablet 1 Tab PO DAILY 30 Days Vitamin B-1 (Thiamine Mononitrate) 100 Mg Tablet 100 Mg PO DAILY 30 Days Folic Acid 1 Mg Tablet 1 Mg PO DAILY 30 Days Klor-Con M20 (Potassium Chloride) 20 Meq Tab.er.prt 40 Meq PO DAILY 10 Days Amlodipine-Benazepril 5-20 Mg (Amlodipine Besylate/Benazepril) 1 Each Capsule 1 Cap PO DAILY Allergies Allergies: Coded Allergies: Penicillins (Verified Allergy, Intermediate, 12/20/16) ROS Review of System Negative for fever, chills, weight loss, shortness of breath, chest pain, indigestion, hematochezia, melena, and dysuria. Full 14-point review of systems is negative. Physical Exam Physical Examination General: Well-developed, well-nourished, black female, in no acute distress HEENT: Normocephalic andatraumatic.Temporal arteriespulsatile and nontender. Neck: Supple without bruit, no meningismus Musculoskeletal: Stability:see neurologic. Gait exam:see neurologic. Tone:see neurologic. Strength:see neurologic. Neurological: Mental Status:intact, orientation, memory, attention span/concentration, language, fund of knowledge normal. Cranial Nerves:Pupils equal and reactive to light, extraocular movements areintact, visual plunkett are full to confrontation. Facial sensation is normal. There is no facial asymmetry. Vestibulo-ocular reflex is intact. Palate elevates and tongue protrudes in midline. All other cranial related problems are negative except as mentioned before.Reflexes:2+ and symmetric with flexor plantar responses. Motor:5/5 strength with normal tone and bulk. Coordination:Finger-nose finger and heel-to -willis testing are normal. Rapid alternating movements and fine finger movements are intact. Gait:Normal, including tandem. Sensory:Normal pinprick, vibration , light touch, proprioception. Vitals VITALS Vital Signs Date Time Temp Pulse Resp B/P (MAP) Pulse Ox O2 Delivery O2 Flow Rate FiO2 08/12/18 14:27 118 138/99 08/12/18 11:00 98.3 16 99 Room Air 98.3 Labs Labs Laboratory Tests Test 08/12/18 06:20 08/12/18 07:05 Urine Collection Type Unknown Urine Color Yellow Urine Clarity Clear Urine pH 6.0 Urine Specific [place] 1.015 Urine Protein 100 mg/dL (NEG-TRACE) Urine Glucose (UA) Negative mg/dL (NEG) Urine Ketones (Stick) >=80 mg/dL (NEG) Urine Blood Moderate (NEG) Urine Nitrite Negative (NEG) Urine Bilirubin Negative (NEG) Urine Urobilinogen Dipstick 0.2 mg/dL (0.2 mg/dL) Urine Leukocyte Esterase Small (NEG) Urine RBC Occ /HPF (0-2) Urine WBC 1-4 /HPF (0-4) Urine Squamous Epithelial Cells Mod /LPF Urine Bacteria 0 /HPF (0-FEW) Urine Trichomonas Present Urine Opiates Screen Neg (NEG) Urine Methadone Screen Neg (NEG) Urine Barbiturates Neg (NEG) Urine Phencyclidine Screen Neg (NEG) Urine Amphetamine/Methamphetamine Neg (NEG) Urine Benzodiazepines Screen Pos (NEG) Urine Cocaine Screen Neg (NEG) Urine Cannabinoids Screen Neg (NEG) Urine Ethyl Alcohol Neg (NEG) White Blood Count 4.3 x10^3/uL (4.0-11.0) Red Blood Count 3.75 x10^6/uL (3.50-5.40) Hemoglobin 13.7 g/dL (12.0-15.5) Hematocrit 38.6 % (36.0-47.0) Mean Corpuscular Volume 103 fL (79-100) Mean Corpuscular Hemoglobin 37 pg (25-35) Mean Corpuscular Hemoglobin Concent 35 g/dL (31-37) Red Cell Distribution Width 14.5 % (11.5-14.5) Platelet Count 113 x10^3/uL (140-400) Neutrophils (%) (Auto) 68 % (31-73) Lymphocytes (%) (Auto) 19 % (24-48) Monocytes (%) (Auto) 13 % (0-9) Eosinophils (%) (Auto) 0 % (0-3) Basophils (%) (Auto) 1 % (0-3) Neutrophils # (Auto) 2.9 x10^3uL (1.8-7.7) Lymphocytes # (Auto) 0.8 x10^3/uL (1.0-4.8) Monocytes # (Auto) 0.6 x10^3/uL (0.0-1.1) Eosinophils # (Auto) 0.0 x10^3/uL (0.0-0.7) Basophils # (Auto) 0.0 x10^3/uL (0.0-0.2) Maternal Serum HCG Beta Subunit 1 mIU/mL (0-5) Sodium Level 133 mmol/L (136-145) Potassium Level 3.3 mmol/L (3.5-5.1) Chloride Level 87 mmol/L (98-107) Carbon Dioxide Level 29 mmol/L (21-32) Anion Gap 17 (6-14) Blood Urea Nitrogen 6 mg/dL (7-20) Creatinine 0.9 mg/dL (0.6-1.0) Estimated GFR (Cockcroft-Gault) 81.9 BUN/Creatinine Ratio 7 (6-20) Glucose Level 177 mg/dL (70-99) Calcium Level 9.5 mg/dL (8.5-10.1) Magnesium Level 0.9 mg/dL (1.8-2.4) Total Bilirubin 0.9 mg/dL (0.2-1.0) Aspartate Amino Transf (AST/SGOT) 173 U/L (15-37) Alanine Aminotransferase (ALT/SGPT) 63 U/L (14-59) Alkaline Phosphatase 143 U/L (46-116) Total Protein 8.9 g/dL (6.4-8.2) Albumin 4.0 g/dL (3.4-5.0) Albumin/Globulin Ratio 0.8 (1.0-1.7) Lipase 144 U/L (73-393) Ethyl Alcohol Level < 10 mg/dL (0-10) Laboratory Tests Test 08/12/18 06:20 08/12/18 07:05 Urine Collection Type Unknown Urine Color Yellow Urine Clarity Clear Urine pH 6.0 Urine Specific [place] 1.015 Urine Protein 100 mg/dL (NEG-TRACE) Urine Glucose (UA) Negative mg/dL (NEG) Urine Ketones (Stick) >=80 mg/dL (NEG) Urine Blood Moderate (NEG) Urine Nitrite Negative (NEG) Urine Bilirubin Negative (NEG) Urine Urobilinogen Dipstick 0.2 mg/dL (0.2 mg/dL) Urine Leukocyte Esterase Small (NEG) Urine RBC Occ /HPF (0-2) Urine WBC 1-4 /HPF (0-4) Urine Squamous Epithelial Cells Mod /LPF Urine Bacteria 0 /HPF (0-FEW) Urine Trichomonas Present Urine Opiates Screen Neg (NEG) Urine Methadone Screen Neg (NEG) Urine Barbiturates Neg (NEG) Urine Phencyclidine Screen Neg (NEG) Urine Amphetamine/Methamphetamine Neg (NEG) Urine Benzodiazepines Screen Pos (NEG) Urine Cocaine Screen Neg (NEG) Urine Cannabinoids Screen Neg (NEG) Urine Ethyl Alcohol Neg (NEG) White Blood Count 4.3 x10^3/uL (4.0-11.0) Red Blood Count 3.75 x10^6/uL (3.50-5.40) Hemoglobin 13.7 g/dL (12.0-15.5) Hematocrit 38.6 % (36.0-47.0) Mean Corpuscular Volume 103 fL (79-100) Mean Corpuscular Hemoglobin 37 pg (25-35) Mean Corpuscular Hemoglobin Concent 35 g/dL (31-37) Red Cell Distribution Width 14.5 % (11.5-14.5) Platelet Count 113 x10^3/uL (140-400) Neutrophils (%) (Auto) 68 % (31-73) Lymphocytes (%) (Auto) 19 % (24-48) Monocytes (%) (Auto) 13 % (0-9) Eosinophils (%) (Auto) 0 % (0-3) Basophils (%) (Auto) 1 % (0-3) Neutrophils # (Auto) 2.9 x10^3uL (1.8-7.7) Lymphocytes # (Auto) 0.8 x10^3/uL (1.0-4.8) Monocytes # (Auto) 0.6 x10^3/uL (0.0-1.1) Eosinophils # (Auto) 0.0 x10^3/uL (0.0-0.7) Basophils # (Auto) 0.0 x10^3/uL (0.0-0.2) Maternal Serum HCG Beta Subunit 1 mIU/mL (0-5) Sodium Level 133 mmol/L (136-145) Potassium Level 3.3 mmol/L (3.5-5.1) Chloride Level 87 mmol/L (98-107) Carbon Dioxide Level 29 mmol/L (21-32) Anion Gap 17 (6-14) Blood Urea Nitrogen 6 mg/dL (7-20) Creatinine 0.9 mg/dL (0.6-1.0) Estimated GFR (Cockcroft-Gault) 81.9 BUN/Creatinine Ratio 7 (6-20) Glucose Level 177 mg/dL (70-99) Calcium Level 9.5 mg/dL (8.5-10.1) Magnesium Level 0.9 mg/dL (1.8-2.4) Total Bilirubin 0.9 mg/dL (0.2-1.0) Aspartate Amino Transf (AST/SGOT) 173 U/L (15-37) Alanine Aminotransferase (ALT/SGPT) 63 U/L (14-59) Alkaline Phosphatase 143 U/L (46-116) Total Protein 8.9 g/dL (6.4-8.2) Albumin 4.0 g/dL (3.4-5.0) Albumin/Globulin Ratio 0.8 (1.0-1.7) Lipase 144 U/L (73-393) Ethyl Alcohol Level < 10 mg/dL (0-10) Images Images EEG normal awake and asleep MRI brain: The scalp and calvarium are normal. The superior sagittal sinus demonstrates normal venous flow. The corpus callosum is normal in shape and signal intensity. The posterior fossa is unremarkable. The pituitary and sella are normal. The brainstem and craniocervical junction are unremarkable. Hippocampi are symmetric in signal intensity and morphology. Amygdala appear normal. There is no heterotopic garner matter. No findings to suggest confirmation of cortical development. Insular ribbon appears normal. Diffusion weighted images reveal no hyperintensities to suggest acute cerebral infarction. The susceptibility weighted sequences reveal no evidence of acute or chronic hemorrhage. The ventricles are normal in size and position without evidence of hydrocephalus. The paranasal sinuses are normal. The visualized portions of the mastoids are unremarkable. The orbits appear normal. Normal flow voids are demonstrated in the carotid arteries and basilar artery. IMPRESSION: Within the limitations of a noncontrast examination, there is no structural abnormality to account for patient's seizures. Assessment/Plan Assessment/Plan Impression: Alcohol-related seizure, seizure workup as above negative for intrinsic epilepsy or cerebral lesion that would cause seizures. Recommendations: I discussed the findings with the patient, she simply needs to stop drinking alcohol. I do not think that she needs an anticonvulsant. No driving until she has gone 6 months without a seizure. Okay to discharge later today or tomorrow if she remains seizure-free. Alcohol rehabilitation referral. Also discussed with patient's who was in the room Thank you for letting me help with the patient's care. BELGICA BARKSDALE MD Aug 12, 2018 14:51
[2018-08-12 15:00] VITALS: BP 139/97
--- NOTE | 2018-08-12 16:05 | EEG ---
DATE OF SERVICE: 08/12/2018 EEG NUMBER: [id number]. OBJECTIVE: The patient is a 43-year-old female with seizures usually related to alcohol. DESCRIPTION: This is a digital study. Electrodes are placed according to the international 10-20 system. Bipolar and referential montages are available. Activation procedures typically include hyperventilation and intermittent photic stimulation. INTERPRETATION: The waking background consists of 8-9 Hz, 20-50 microvolt activity, symmetrically distributed over parietooccipital regions and reactive to eye opening. Background is somewhat poorly formed and there is a large amount of beta activity. Hyperventilation and intermittent photic stimulation are noncontributory. Stage 1 sleep is achieved with normal electroencephalogram patterns. IMPRESSION: This electroencephalogram with the patient awake and asleep is within normal limits. Poorly formed background activity and beta activity, most likely reflect drug effect such as alcohol withdrawal. There is no focal, paroxysmal, or epileptiform activity. Thank you for letting us help with the patient's care. BELGICA BARKSDALE MD DR: JOSE/shilo JOB#: [id number] / [id number] Dr. Agata Sandoval
[2018-08-12 19:00] VITALS: BP 110/73
[2018-08-12 22:48] VITALS: BP 120/80
[2018-08-13 03:00] VITALS: BP 137/91
[2018-08-13 06:18] LABS: CALCIUM 8.6 mg/dL (8.5-10.1); CREATININE 0.7 mg/dL (0.6-1.0); GFR 109.5; MAGNESIUM 1.4 mg/dL (1.8-2.4)
[2018-08-13 06:24] LABS: POTASSIUM 2.9 mmol/L (3.5-5.1)
[2018-08-13 07:00] VITALS: BP 148/95
[2018-08-13] MEDS ORDERED: POTASSIUM CHLORIDE 20 MEQ TABLET.ER. PO ONE ×2 (07:30→08:00)
[2018-08-13] MEDS ORDERED: AMLO1CAP10 PO (07:38)
[2018-08-13] MEDS ORDERED: POTA20TA4 PO (07:38)
[2018-08-13] MEDS ORDERED: CHLO25CA9 PO (07:38)
[2018-08-13] MEDS ORDERED: MAGNESIUM SULFATE 4GM 100 ML IV ONE (08:00)
[2018-08-13] MEDS ORDERED: POTASSIUM CHLORIDE 20 MEQ TABLET.ER. PO SCH (09:00)
[2018-08-13] MEDS: POTASSIUM CHLORIDE 20 MEQ TABLET.ER. PO SCH ×2 (09:00→22:25)
--- NOTE | 2018-08-13 09:00 | PDOC3 ---
Discharge Summary Visit Information Date of Admission: Aug 12, 2018 Date of Discharge: Aug 13, 2018 Admitting Diagnosis Comment: Seizure related to alcohol use -Last alcohol was yesterday Fall, no injuries Hyponatremia, hypokalemia with severe hypomagnesemia in an alcoholic Thrombocytopenia in an alcoholic Elevated LFTs is an alcoholic Brief Hospital Course Allergies Allergies Coded Allergies Type Severity Reaction Last Updated Verified Penicillins Allergy Intermediate 12/20/16 Yes Vital Signs Vital Signs Date Time Temp Pulse Resp B/P (MAP) Pulse Ox O2 Delivery O2 Flow Rate FiO2 08/13/18 07:00 98.6 92 18 148/95 (112) 97 Room Air 98.6 Lab Results Laboratory Tests Test 08/12/18 06:20 08/12/18 07:05 08/13/18 04:45 Urine Collection Type Unknown Urine Color Yellow Urine Clarity Clear Urine pH 6.0 Urine Specific [place] 1.015 Urine Protein 100 mg/dL (NEG-TRACE) Urine Glucose (UA) Negative mg/dL (NEG) Urine Ketones (Stick) >=80 mg/dL (NEG) Urine Blood Moderate (NEG) Urine Nitrite Negative (NEG) Urine Bilirubin Negative (NEG) Urine Urobilinogen Dipstick 0.2 mg/dL (0.2 mg/dL) Urine Leukocyte Esterase Small (NEG) Urine RBC Occ /HPF (0-2) Urine WBC 1-4 /HPF (0-4) Urine Squamous Epithelial Cells Mod /LPF Urine Bacteria 0 /HPF (0-FEW) Urine Trichomonas Present Urine Opiates Screen Neg (NEG) Urine Methadone Screen Neg (NEG) Urine Barbiturates Neg (NEG) Urine Phencyclidine Screen Neg (NEG) Urine Amphetamine/Methamphetamine Neg (NEG) Urine Benzodiazepines Screen Pos (NEG) Urine Cocaine Screen Neg (NEG) Urine Cannabinoids Screen Neg (NEG) Urine Ethyl Alcohol Neg (NEG) White Blood Count 4.3 x10^3/uL (4.0-11.0) Red Blood Count 3.75 x10^6/uL (3.50-5.40) Hemoglobin 13.7 g/dL (12.0-15.5) Hematocrit 38.6 % (36.0-47.0) Mean Corpuscular Volume 103 fL (79-100) Mean Corpuscular Hemoglobin 37 pg (25-35) Mean Corpuscular Hemoglobin Concent 35 g/dL (31-37) Red Cell Distribution Width 14.5 % (11.5-14.5) Platelet Count 113 x10^3/uL (140-400) Neutrophils (%) (Auto) 68 % (31-73) Lymphocytes (%) (Auto) 19 % (24-48) Monocytes (%) (Auto) 13 % (0-9) Eosinophils (%) (Auto) 0 % (0-3) Basophils (%) (Auto) 1 % (0-3) Neutrophils # (Auto) 2.9 x10^3uL (1.8-7.7) Lymphocytes # (Auto) 0.8 x10^3/uL (1.0-4.8) Monocytes # (Auto) 0.6 x10^3/uL (0.0-1.1) Eosinophils # (Auto) 0.0 x10^3/uL (0.0-0.7) Basophils # (Auto) 0.0 x10^3/uL (0.0-0.2) Maternal Serum HCG Beta Subunit 1 mIU/mL (0-5) Sodium Level 133 mmol/L (136-145) 138 mmol/L (136-145) Potassium Level 3.3 mmol/L (3.5-5.1) 2.9 mmol/L (3.5-5.1) Chloride Level 87 mmol/L (98-107) 98 mmol/L (98-107) Carbon Dioxide Level 29 mmol/L (21-32) 27 mmol/L (21-32) Anion Gap 17 (6-14) 13 (6-14) Blood Urea Nitrogen 6 mg/dL (7-20) 7 mg/dL (7-20) Creatinine 0.9 mg/dL (0.6-1.0) 0.7 mg/dL (0.6-1.0) Estimated GFR (Cockcroft-Gault) 81.9 109.5 BUN/Creatinine Ratio 7 (6-20) Glucose Level 177 mg/dL (70-99) 78 mg/dL (70-99) Calcium Level 9.5 mg/dL (8.5-10.1) 8.6 mg/dL (8.5-10.1) Magnesium Level 0.9 mg/dL (1.8-2.4) 1.4 mg/dL (1.8-2.4) Total Bilirubin 0.9 mg/dL (0.2-1.0) Aspartate Amino Transf (AST/SGOT) 173 U/L (15-37) Alanine Aminotransferase (ALT/SGPT) 63 U/L (14-59) Alkaline Phosphatase 143 U/L (46-116) Total Protein 8.9 g/dL (6.4-8.2) Albumin 4.0 g/dL (3.4-5.0) Albumin/Globulin Ratio 0.8 (1.0-1.7) Lipase 144 U/L (73-393) Ethyl Alcohol Level < 10 mg/dL (0-10) Laboratory Tests Test 08/13/18 04:45 Sodium Level 138 mmol/L (136-145) Potassium Level 2.9 mmol/L (3.5-5.1) Chloride Level 98 mmol/L (98-107) Carbon Dioxide Level 27 mmol/L (21-32) Anion Gap 13 (6-14) Blood Urea Nitrogen 7 mg/dL (7-20) Creatinine 0.7 mg/dL (0.6-1.0) Estimated GFR (Cockcroft-Gault) 109.5 Glucose Level 78 mg/dL (70-99) Calcium Level 8.6 mg/dL (8.5-10.1) Magnesium Level 1.4 mg/dL (1.8-2.4) Brief Hospital Course Ms. Tirado is a 43 old -English female who was admitted for alcohol related seizures. Comanage with neurology, agree with no AEDs. Advised no driving 6 months until seizure-free. Admitted because of critical low magnesium low potassium and low sodium. We're replacing. Rechecking labs this afternoon if normal then go home today with a follow-up PCP. She is SP, I did give free clinic referral Dc < 30 mins Consults: neuro PRoc none Discharge Information Condition at Discharge: Improved, Stable Follow Up: Weeks (DR Bernardo Sep 18) Disposition/Orders: D/C to Home Scheduled Amlodipine Besylate/Benazepril (Amlodipine-Benazepril 5-20 Mg) 1 Each Capsule, 1 CAP PO DAILY for htn MDD 1, #60 Ref 2 Prescribed by: HAMZAH BOB on 08/13/18 0738 Folic Acid (Folic Acid) 1 Mg Tablet, 1 MG PO DAILY for 30 Days, #30 Prescribed by: HAMZAH BOB on 05/01/181048 Last Action: Continued on 08/12/18848 by HAMZAH BOB Multivits,Ca,Minerals/Iron/Fa (Thera-M Tablet) 1 Each Tablet, 1 TAB PO DAILY for 30 Days, #30 Prescribed by: HAMZAH BOB on 05/01/181048 Last Action: Continued on 08/12/18848 by HAMZAH BOB Potassium Chloride (Klor-Con M20) 20 Meq Tab.er.prt, 40 MEQ PO DAILY for 10 Days , #20 Prescribed by: HAMZAH BOB on 05/01/181048 Last Action: Continued on 08/12/18848 by HAMZAH BOB Potassium Chloride (Klor-Con M20) 20 Meq Tab.er.prt, 40 MEQ PO BID for low K MDD low K for 14 Days, #56 Prescribed by: HAMZAH BOB on 08/13/1838 Thiamine Mononitrate (Vitamin B-1) 100 Mg Tablet, 100 MG PO DAILY for 30 Days, # 30 Prescribed by: HAMZAH BOB on 05/01/181048 Last Action: Converted on 08/12/18848 by HAMZAH BOB Scheduled PRN Chlordiazepoxide Hcl (Chlordiazepoxide Hcl) 25 Mg Capsule, 50 MG PO PRN Q6HRS PRN for ANXIETY / AGITATION MDD 1, #60 Ref 1 Prescribed by: HAMZAH BOB on 08/13/18 0738 HAMZAH BOB MD Aug 13, 2018 09:00
[2018-08-13] MEDS: MULTIVITAMIN with MINERAL TABLET. PO SCH (10:00)
[2018-08-13] MEDS: THIAMINE 100 MG TABLET. PO SCH (10:00)
[2018-08-13] MEDS: FOLIC ACID 1 MG TABLET. PO SCH (10:01)
[2018-08-13] MEDS: LISINOPRIL 20 MG TABLET PO SCH (10:01)
[2018-08-13] MEDS: amLODIPine BESYLATE 5 MG TABLET PO SCH (10:01)
[2018-08-13 11:00] VITALS: BP 108/78
[2018-08-13 13:33] LABS: MAGNESIUM 2.6 mg/dL (1.8-2.4); POTASSIUM 3.7 mmol/L (3.5-5.1)
[2018-08-13 15:00] VITALS: BP 132/80
--- NOTE | 2018-08-13 15:20 | PDOC ---
PROGRESS NOTES Assessment Alcohol-related seizure, seizure workup as above negative for intrinsic epilepsy or cerebral lesion that would cause seizures. Wernickreza's Plan Abstain from alcohol. I do not think that she needs an anticonvulsant. No driving until she has gone 6 months without a seizure. Alcohol rehabilitation referral. 1:1 nursing, can't go home like this Thiamine Subjective no complaints Objective Vital Signs Date Time Temp Pulse Resp B/P (MAP) Pulse Ox O2 Delivery O2 Flow Rate FiO2 08/13/18 11:00 98.2 96 20 108/78 (88) 98 Room Air 98.2 Intake and Output 08/13/18 07:01 Intake Total 1251.2 ml Balance 1251.2 ml Intake Oral 240 ml IV Total 1011.2 ml # Voids 7 PHYSICAL EXAM Alert. Thinks she is [place]. Confabulates PERRL. EOMI. CN: no focal findings. Muscle tone: normal. Muscle strength: 5/5 DTR: 2+ Plantar reflex: flexor Gait: normal Sensory exam: no abnormal findings. No cerebellar signs elicited. Review of Relevant I have reviewed the following items douglas (where applicable) has been applied. Labs Laboratory Tests Test 08/12/18 06:20 08/12/18 07:05 08/13/18 04:45 08/13/18 13:00 Urine Collection Type Unknown Urine Color Yellow Urine Clarity Clear Urine pH 6.0 Urine Specific [place] 1.015 Urine Protein 100 mg/dL (NEG-TRACE) Urine Glucose (UA) Negative mg/dL (NEG) Urine Ketones (Stick) >=80 mg/dL (NEG) Urine Blood Moderate (NEG) Urine Nitrite Negative (NEG) Urine Bilirubin Negative (NEG) Urine Urobilinogen Dipstick 0.2 mg/dL (0.2 mg/dL) Urine Leukocyte Esterase Small (NEG) Urine RBC Occ /HPF (0-2) Urine WBC 1-4 /HPF (0-4) Urine Squamous Epithelial Cells Mod /LPF Urine Bacteria 0 /HPF (0-FEW) Urine Trichomonas Present Urine Opiates Screen Neg (NEG) Urine Methadone Screen Neg (NEG) Urine Barbiturates Neg (NEG) Urine Phencyclidine Screen Neg (NEG) Urine Amphetamine/Methamphetamine Neg (NEG) Urine Benzodiazepines Screen Pos (NEG) Urine Cocaine Screen Neg (NEG) Urine Cannabinoids Screen Neg (NEG) Urine Ethyl Alcohol Neg (NEG) White Blood Count 4.3 x10^3/uL (4.0-11.0) Red Blood Count 3.75 x10^6/uL (3.50-5.40) Hemoglobin 13.7 g/dL (12.0-15.5) Hematocrit 38.6 % (36.0-47.0) Mean Corpuscular Volume 103 fL (79-100) Mean Corpuscular Hemoglobin 37 pg (25-35) Mean Corpuscular Hemoglobin Concent 35 g/dL (31-37) Red Cell Distribution Width 14.5 % (11.5-14.5) Platelet Count 113 x10^3/uL (140-400) Neutrophils (%) (Auto) 68 % (31-73) Lymphocytes (%) (Auto) 19 % (24-48) Monocytes (%) (Auto) 13 % (0-9) Eosinophils (%) (Auto) 0 % (0-3) Basophils (%) (Auto) 1 % (0-3) Neutrophils # (Auto) 2.9 x10^3uL (1.8-7.7) Lymphocytes # (Auto) 0.8 x10^3/uL (1.0-4.8) Monocytes # (Auto) 0.6 x10^3/uL (0.0-1.1) Eosinophils # (Auto) 0.0 x10^3/uL (0.0-0.7) Basophils # (Auto) 0.0 x10^3/uL (0.0-0.2) Maternal Serum HCG Beta Subunit 1 mIU/mL (0-5) Sodium Level 133 mmol/L (136-145) 138 mmol/L (136-145) Potassium Level 3.3 mmol/L (3.5-5.1) 2.9 mmol/L (3.5-5.1) 3.7 mmol/L (3.5-5.1) Chloride Level 87 mmol/L (98-107) 98 mmol/L (98-107) Carbon Dioxide Level 29 mmol/L (21-32) 27 mmol/L (21-32) Anion Gap 17 (6-14) 13 (6-14) Blood Urea Nitrogen 6 mg/dL (7-20) 7 mg/dL (7-20) Creatinine 0.9 mg/dL (0.6-1.0) 0.7 mg/dL (0.6-1.0) Estimated GFR (Cockcroft-Gault) 81.9 109.5 BUN/Creatinine Ratio 7 (6-20) Glucose Level 177 mg/dL (70-99) 78 mg/dL (70-99) Calcium Level 9.5 mg/dL (8.5-10.1) 8.6 mg/dL (8.5-10.1) Magnesium Level 0.9 mg/dL (1.8-2.4) 1.4 mg/dL (1.8-2.4) 2.6 mg/dL (1.8-2.4) Total Bilirubin 0.9 mg/dL (0.2-1.0) Aspartate Amino Transf (AST/SGOT) 173 U/L (15-37) Alanine Aminotransferase (ALT/SGPT) 63 U/L (14-59) Alkaline Phosphatase 143 U/L (46-116) Total Protein 8.9 g/dL (6.4-8.2) Albumin 4.0 g/dL (3.4-5.0) Albumin/Globulin Ratio 0.8 (1.0-1.7) Lipase 144 U/L (73-393) Ethyl Alcohol Level < 10 mg/dL (0-10) Laboratory Tests Test 08/13/18 04:45 08/13/18 13:00 Sodium Level 138 mmol/L (136-145) Potassium Level 2.9 mmol/L (3.5-5.1) 3.7 mmol/L (3.5-5.1) Chloride Level 98 mmol/L (98-107) Carbon Dioxide Level 27 mmol/L (21-32) Anion Gap 13 (6-14) Blood Urea Nitrogen 7 mg/dL (7-20) Creatinine 0.7 mg/dL (0.6-1.0) Estimated GFR (Cockcroft-Gault) 109.5 Glucose Level 78 mg/dL (70-99) Calcium Level 8.6 mg/dL (8.5-10.1) Magnesium Level 1.4 mg/dL (1.8-2.4) 2.6 mg/dL (1.8-2.4) Medications Current Medications Sodium Chloride 1,000 ml @ 1,000 mls/hr 1X ONCE IV Last administered on 08/12at 07:18; Start 08/12/18 at 07:00; Stop 08/12/18 at 07:59; Status DC Lorazepam (Ativan) 2 mg 1X ONCE IV Last administered on 08/12/18at 07:18; Start 08/12/18 at 07:00; Stop 08/12/18 at 07:01; Status DC Thiamine Mononitrate (Vitamin B-1) 100 mg 1X ONCE PO Last administered on at 07:05; Start 08/12/18 at 07:00; Stop 08/12/18 at 07:01; Status DC Multivitamins/ Minerals (I-Tramaine) 1 tab 1X ONCE PO Last administered on at 07:05; Start 08/12/18 at 07:00; Stop 08/12/18 at 07:01; Status DC Metronidazole (Flagyl) 2,000 mg 1X ONCE PO Last administered on 08/12/18at 08: 07; Start 08/12/18 at 07:30; Stop 08/12/18 at 07:31; Status DC Magnesium Sulfate/ Dextrose 100 ml @ 100 mls/hr 1X ONCE IV Last administered on 08/12/18at 08:00; Start 08/12/18 at 08:00; Stop 08/12/18 at 08:59; Status DC Potassium Chloride (KCl Oral Soln) 40 meq 1X ONCE PO Last administered on at 08:24; Start 08/12/18 at 08:00; Stop 08/12/18 at 08:01; Status DC Magnesium Sulfate/ Dextrose 100 ml @ 100 mls/hr 1X ONCE IV ; Start 08/12/18 at 09:00; Stop 08/12/18 at 09:59; Status DC Multivitamins 10 ml/Thiamine HCl 100 mg/Folic Acid 1 mg/Sodium Chloride 1,011.2 ml @ 100 mls/ hr DAILY IV Last administered on 08/12/18at 10:35; Start at 09:00; Stop 08/12/18 at 16:52; Status DC Multivitamins (Thera M Plus) 1 tab DAILY PO Last administered on 08/13/18at 10: 00; Start 08/12/18 at 09:00 Folic Acid (Folic Acid) 1 mg DAILY PO Last administered on 08/13/18at 10:01; Start 08/12/18 at 09:00 Chlordiazepoxide (Librium) 50 mg PRN Q1HR PRN PO For CIWA 8-14 Last administered on 08/13/18at 09:59; Start 08/12/18 at 08:30 Chlordiazepoxide (Librium) 100 mg PRN Q1HR PRN PO For CIWA 15 or greater; Start 08/12/18 at 08:30 Lorazepam (Ativan) 2 mg PRN Q1HR PRN IV For CIWA 8-14 Last administered on at 13:44; Start 08/12/18 at 08:30 Labetalol HCl (Normodyne Iv Push) 20 mg PRN Q2HR PRN IVP HYPERTENSION, SEE COMMENTS; Start 08/12/18 at 09:00 Magnesium Sulfate/ Dextrose 100 ml @ 25 mls/hr 1X ONCE IV ; Start 08/12/18 at 09:30; Stop 08/12/18 at 09:30; Status DC Potassium Chloride/Sodium Chloride 1,000 ml @ 100 mls/hr 1X ONCE IV Last administered on 08/12/18at 20:52; Start 08/12/18 at 10:00; Stop 08/12/18 at 19 :59; Status DC Potassium Chloride (Klor-Con) 40 meq 1X ONCE PO ; Start 08/12/18 at 09:00; Stop 08/12/18 at 09:00; Status DC Folic Acid (Folic Acid) 1 mg DAILY PO ; Start 08/12/18 at 09:00; Status UNV Multivitamins (Thera M Plus) 1 tab DAILY PO ; Start 08/12/18 at 09:00; Status UNV Potassium Chloride (Klor-Con) 40 meq DAILY PO ; Start 08/13/18 at 09:00; Stop 08/13/18 at 09:00; Status DC Amlodipine Besylate (Norvasc) 5 mg DAILY PO Last administered on 08/13/18at 10: 01; Start 08/12/18 at 09:00 Thiamine Mononitrate (Vitamin B-1) 100 mg DAILY PO Last administered on at 10:00; Start 08/12/18 at 09:00 Lisinopril (Prinivil) 20 mg DAILY PO Last administered on 08/13/18at 10:01; Start 08/12/18 at 09:00 Potassium Chloride (Klor-Con) 20 meq 1X ONCE PO Last administered on at 10:00; Start 08/13/18 at 07:30; Stop 08/13/18 at 07:31; Status DC Potassium Chloride (Klor-Con) 40 meq BID PO ; Start 08/13/18 at 09:00 Potassium Chloride (Klor-Con) 40 meq 1X ONCE PO Last administered on at 10:00; Start 08/13/18 at 08:00; Stop 08/13/18 at 08:01; Status DC Magnesium Sulfate/ Dextrose 100 ml @ 25 mls/hr 1X ONCE IV Last administered on 08/13/18at 10:12; Start 08/13/18 at 08:00; Stop 08/13/18 at 11:59; Status DC Active Scripts Active Klor-Con M20 (Potassium Chloride) 20 Meq Tab.er.prt 40 Meq PO BID MDD low K 14 Days Chlordiazepoxide Hcl 25 Mg Capsule 50 Mg PO PRN Q6HRS PRN MDD 1 Amlodipine-Benazepril 5-20 Mg (Amlodipine Besylate/Benazepril) 1 Each Capsule 1 Cap PO DAILY MDD 1 Thera-M Tablet (Multivits,Ca,Minerals/Iron/Fa) 1 Each Tablet 1 Tab PO DAILY 30 Days Vitamin B-1 (Thiamine Mononitrate) 100 Mg Tablet 100 Mg PO DAILY 30 Days Folic Acid 1 Mg Tablet 1 Mg PO DAILY 30 Days Klor-Con M20 (Potassium Chloride) 20 Meq Tab.er.prt 40 Meq PO DAILY 10 Days Vitals/I & O Vital Sign - Last 24 Hours 08/12/18 08/12/18 08/12/18 08/13/18 19:00 19:59 22:48 03:00 Temp 98.1 99.0 98.5 98.1 99.0 98.5 Pulse 114 104 85 Resp 18 18 18 B/P (MAP) 110/73 (85) 120/80 (93) 137/91 (106) Pulse Ox 97 96 96 O2 Delivery Room Air Room Air Room Air Room Air 08/13/18 08/13/18 08/13/18 08/13/18 07:00 08:00 10:01 10:01 Temp 98.6 98.6 Pulse 92 92 92 Resp 18 B/P (MAP) 148/95 (112) 148/95 148/95 Pulse Ox 97 O2 Delivery Room Air Room Air 08/13/18 11:00 Temp 98.2 98.2 Pulse 96 Resp 20 B/P (MAP) 108/78 (88) Pulse Ox 98 O2 Delivery Room Air Intake and Output 08/12/18 08/12/18 08/13/18 15:01 23:01 07:01 Intake Total 240 ml 1011.2 ml Balance 240 ml 1011.2 ml BELGICA BARKSDALE MD Aug 13, 2018 15:20
[2018-08-13] MEDS: LORazepam 1 MG TABLET PO PRN ×3 (18:07→22:59)
[2018-08-13 19:00] VITALS: BP 135/96
[2018-08-13 21:36] VITALS: BP 135/96
[2018-08-13] MEDS ORDERED: ZIPRASIDONE IM 20 MG VIAL. IM STA (23:22)
[2018-08-14 03:00] VITALS: BP 135/70
[2018-08-14] MEDS: LORazepam 1 MG TABLET PO PRN ×4 (06:49→15:17)
[2018-08-14 06:50] VITALS: BP 190/125
[2018-08-14] MEDS: MULTIVITAMIN with MINERAL TABLET. PO SCH (08:15)
[2018-08-14] MEDS: FOLIC ACID 1 MG TABLET. PO SCH (08:15)
[2018-08-14] MEDS: THIAMINE 100 MG TABLET. PO SCH (08:15)
[2018-08-14] MEDS: amLODIPine BESYLATE 5 MG TABLET PO SCH (08:16)
[2018-08-14] MEDS: LISINOPRIL 20 MG TABLET PO SCH (08:16)
[2018-08-14] MEDS: POTASSIUM CHLORIDE 20 MEQ TABLET.ER. PO SCH (08:18)
--- NOTE | 2018-08-14 10:26 | PDOC ---
PROGRESS NOTES Assessment Alcohol-related seizure, seizure workup as above negative for intrinsic epilepsy or cerebral lesion that would cause seizures. Wernicke's, reportedly tried to climb out of the window last night Plan Abstain from alcohol. I do not think that she needs an anticonvulsant. No driving until she has gone 6 months without a seizure. Alcohol rehabilitation referral. 1:1 nursing, can't go home like this, Consider transfer to psychiatry inpatient unit Thiamine Subjective denies pain Objective Vital Signs Date Time Temp Pulse Resp B/P (MAP) Pulse Ox O2 Delivery O2 Flow Rate FiO2 08/14/18 08:16 117 190/125 08/14/18 06:50 98.8 18 98 Room Air 98.8 Intake and Output 08/14/18 07:01 Intake Total 540 ml Balance 540 ml Intake Oral 540 ml # Voids 2 PHYSICAL EXAM Alert. Thinks she is at a nightclub. Confabulates PERRL. EOMI. CN: no focal findings. Muscle tone: normal. Muscle strength: 5/5 DTR: 2+ Plantar reflex: flexor Gait: not tested Sensory exam: no abnormal findings. No cerebellar signs elicited. Review of Relevant I have reviewed the following items douglas (where applicable) has been applied. Labs Laboratory Tests Test 08/13/18 04:45 08/13/18 13:00 Sodium Level 138 mmol/L (136-145) Potassium Level 2.9 mmol/L (3.5-5.1) 3.7 mmol/L (3.5-5.1) Chloride Level 98 mmol/L (98-107) Carbon Dioxide Level 27 mmol/L (21-32) Anion Gap 13 (6-14) Blood Urea Nitrogen 7 mg/dL (7-20) Creatinine 0.7 mg/dL (0.6-1.0) Estimated GFR (Cockcroft-Gault) 109.5 Glucose Level 78 mg/dL (70-99) Calcium Level 8.6 mg/dL (8.5-10.1) Magnesium Level 1.4 mg/dL (1.8-2.4) 2.6 mg/dL (1.8-2.4) Laboratory Tests Test 08/13/18 13:00 Potassium Level 3.7 mmol/L (3.5-5.1) Magnesium Level 2.6 mg/dL (1.8-2.4) Medications Current Medications Sodium Chloride 1,000 ml @ 1,000 mls/hr 1X ONCE IV Last administered on 08/12at 07:18; Start 08/12/18 at 07:00; Stop 08/12/18 at 07:59; Status DC Lorazepam (Ativan) 2 mg 1X ONCE IV Last administered on 08/12/18at 07:18; Start 08/12/18 at 07:00; Stop 08/12/18 at 07:01; Status DC Thiamine Mononitrate (Vitamin B-1) 100 mg 1X ONCE PO Last administered on at 07:05; Start 08/12/18 at 07:00; Stop 08/12/18 at 07:01; Status DC Multivitamins/ Minerals (I-Tramaine) 1 tab 1X ONCE PO Last administered on at 07:05; Start 08/12/18 at 07:00; Stop 08/12/18 at 07:01; Status DC Metronidazole (Flagyl) 2,000 mg 1X ONCE PO Last administered on 08/12/18at 08: 07; Start 08/12/18 at 07:30; Stop 08/12/18 at 07:31; Status DC Magnesium Sulfate/ Dextrose 100 ml @ 100 mls/hr 1X ONCE IV Last administered on 08/12/18at 08:00; Start 08/12/18 at 08:00; Stop 08/12/18 at 08:59; Status DC Potassium Chloride (KCl Oral Soln) 40 meq 1X ONCE PO Last administered on at 08:24; Start 08/12/18 at 08:00; Stop 08/12/18 at 08:01; Status DC Magnesium Sulfate/ Dextrose 100 ml @ 100 mls/hr 1X ONCE IV ; Start 08/12/18 at 09:00; Stop 08/12/18 at 09:59; Status DC Multivitamins 10 ml/Thiamine HCl 100 mg/Folic Acid 1 mg/Sodium Chloride 1,011.2 ml @ 100 mls/ hr DAILY IV Last administered on 08/12/18at 10:35; Start at 09:00; Stop 08/12/18 at 16:52; Status DC Multivitamins (Thera M Plus) 1 tab DAILY PO Last administered on 08/14/18at 08: 15; Start 08/12/18 at 09:00 Folic Acid (Folic Acid) 1 mg DAILY PO Last administered on 08/14/18at 08:15; Start 08/12/18 at 09:00 Chlordiazepoxide (Librium) 50 mg PRN Q1HR PRN PO For CIWA 8-14 Last administered on 08/13/18at 09:59; Start 08/12/18 at 08:30 Chlordiazepoxide (Librium) 100 mg PRN Q1HR PRN PO For CIWA 15 or greater Last administered on 08/13/18at 15:32; Start 08/12/18 at 08:30 Lorazepam (Ativan) 2 mg PRN Q1HR PRN IV For CIWA 8-14 Last administered on at 13:44; Start 08/12/18 at 08:30 Labetalol HCl (Normodyne Iv Push) 20 mg PRN Q2HR PRN IVP HYPERTENSION, SEE COMMENTS; Start 08/12/18 at 09:00 Magnesium Sulfate/ Dextrose 100 ml @ 25 mls/hr 1X ONCE IV ; Start 08/12/18 at 09:30; Stop 08/12/18 at 09:30; Status DC Potassium Chloride/Sodium Chloride 1,000 ml @ 100 mls/hr 1X ONCE IV Last administered on 08/12/18at 20:52; Start 08/12/18 at 10:00; Stop 08/12/18 at 19 :59; Status DC Potassium Chloride (Klor-Con) 40 meq 1X ONCE PO ; Start 08/12/18 at 09:00; Stop 08/12/18 at 09:00; Status DC Folic Acid (Folic Acid) 1 mg DAILY PO ; Start 08/12/18 at 09:00; Status UNV Multivitamins (Thera M Plus) 1 tab DAILY PO ; Start 08/12/18 at 09:00; Status UNV Potassium Chloride (Klor-Con) 40 meq DAILY PO ; Start 08/13/18 at 09:00; Stop 08/13/18 at 09:00; Status DC Amlodipine Besylate (Norvasc) 5 mg DAILY PO Last administered on 08/14/18at 08: 16; Start 08/12/18 at 09:00 Thiamine Mononitrate (Vitamin B-1) 100 mg DAILY PO Last administered on at 08:15; Start 08/12/18 at 09:00 Lisinopril (Prinivil) 20 mg DAILY PO Last administered on 08/14/18at 08:16; Start 08/12/18 at 09:00 Potassium Chloride (Klor-Con) 20 meq 1X ONCE PO Last administered on at 10:00; Start 08/13/18 at 07:30; Stop 08/13/18 at 07:31; Status DC Potassium Chloride (Klor-Con) 40 meq BID PO Last administered on 08/14/18at 08: 18; Start 08/13/18 at 09:00 Potassium Chloride (Klor-Con) 40 meq 1X ONCE PO Last administered on at 10:00; Start 08/13/18 at 08:00; Stop 08/13/18 at 08:01; Status DC Magnesium Sulfate/ Dextrose 100 ml @ 25 mls/hr 1X ONCE IV Last administered on 08/13/18at 10:12; Start 08/13/18 at 08:00; Stop 08/13/18 at 11:59; Status DC Lorazepam (Ativan) 2 mg PRN Q1HR PRN PO ANXIETY / AGITATION Last administered on 08/14/18at 08:17; Start 08/13/18 at 17:45 Lorazepam (Ativan) 4 mg 1X STAT IM Last administered on 08/13/18at 23:47; Start 08/13/18 at 23:22; Stop 08/13/18 at 23:24; Status DC Ziprasidone (Geodon Im) 20 mg 1X STAT IM Last administered on 08/13/18at 23:48 ; Start 08/13/18 at 23:22; Stop 08/13/18 at 23:24; Status DC Active Scripts Active Klor-Con M20 (Potassium Chloride) 20 Meq Tab.er.prt 40 Meq PO BID MDD low K 14 Days Chlordiazepoxide Hcl 25 Mg Capsule 50 Mg PO PRN Q6HRS PRN MDD 1 Amlodipine-Benazepril 5-20 Mg (Amlodipine Besylate/Benazepril) 1 Each Capsule 1 Cap PO DAILY MDD 1 Thera-M Tablet (Multivits,Ca,Minerals/Iron/Fa) 1 Each Tablet 1 Tab PO DAILY 30 Days Vitamin B-1 (Thiamine Mononitrate) 100 Mg Tablet 100 Mg PO DAILY 30 Days Folic Acid 1 Mg Tablet 1 Mg PO DAILY 30 Days Klor-Con M20 (Potassium Chloride) 20 Meq Tab.er.prt 40 Meq PO DAILY 10 Days Vitals/I & O Vital Sign - Last 24 Hours 08/13/18 08/13/18 08/13/18 08/13/18 11:00 15:00 19:00 20:00 Temp 98.2 98.5 98.2 98.2 98.5 98.2 Pulse 96 95 93 Resp 20 20 20 B/P (MAP) 108/78 (88) 132/80 (97) 135/96 (109) Pulse Ox 98 98 97 O2 Delivery Room Air Room Air Room Air Room Air 08/14/18 08/14/18 08/14/18 08/14/18 03:00 06:50 08:16 08:16 Temp 98.8 98.8 98.8 98.8 Pulse 116 117 117 117 Resp 18 18 B/P (MAP) 135/70 (91) 190/125 (146) 190/125 190/125 Pulse Ox 98 98 O2 Delivery Room Air Room Air Intake and Output 08/13/18 08/13/18 08/14/18 15:01 23:01 07:01 Intake Total 120 ml 180 ml 240 ml Balance 120 ml 180 ml 240 ml BELGICA BARKSDALE MD Aug 14, 2018 10:25
--- NOTE | 2018-08-14 11:11 | PDOC ---
PROGRESS NOTES Chief Complaint Chief Complaint acute toxic or metabolic encephalopathy possible chronic wernicke encephalopathy Seizure related to alcohol use Last alcohol was yesterday EtOH withdrawl Fall, no injuries Hyponatremia, hypokalemia with severe hypomagnesemia in an alcoholic Thrombocytopenia in an alcoholic transaminitis in an alcoholic History of Present Illness History of Present Illness sleeping hard, has been confused, more talkative, oriented to self, not to surroundings, agree with Neuro consult, not safe to co home. some time may have benefit, cont vitamin supps Vitals Vitals Vital Signs Date Time Temp Pulse Resp B/P (MAP) Pulse Ox O2 Delivery O2 Flow Rate FiO2 08/14/18 08:16 117 190/125 08/14/18 06:50 98.8 18 98 Room Air 98.8 Physical Exam General: Alert, Oriented X3, Cooperative, No acute distress Heart: Regular rate, No murmurs Abdomen: Normal bowel sounds, Soft, No tenderness, No hepatosplenomegaly, No masses Extremities: No clubbing, No cyanosis, No edema, Normal pulses, No tenderness/ swelling Skin: No rashes, No breakdown, No significant lesion Labs LABS Laboratory Tests Test 08/13/18 13:00 Potassium Level 3.7 mmol/L (3.5-5.1) Magnesium Level 2.6 mg/dL (1.8-2.4) Review of Systems Review of Systems no n/v/d Comment Review of Relevant I have reviewed the following items douglas (where applicable) has been applied. Labs Laboratory Tests Test 08/13/18 04:45 08/13/18 13:00 Sodium Level 138 mmol/L (136-145) Potassium Level 2.9 mmol/L (3.5-5.1) 3.7 mmol/L (3.5-5.1) Chloride Level 98 mmol/L (98-107) Carbon Dioxide Level 27 mmol/L (21-32) Anion Gap 13 (6-14) Blood Urea Nitrogen 7 mg/dL (7-20) Creatinine 0.7 mg/dL (0.6-1.0) Estimated GFR (Cockcroft-Gault) 109.5 Glucose Level 78 mg/dL (70-99) Calcium Level 8.6 mg/dL (8.5-10.1) Magnesium Level 1.4 mg/dL (1.8-2.4) 2.6 mg/dL (1.8-2.4) Laboratory Tests Test 08/13/18 13:00 Potassium Level 3.7 mmol/L (3.5-5.1) Magnesium Level 2.6 mg/dL (1.8-2.4) Medications Current Medications Sodium Chloride 1,000 ml @ 1,000 mls/hr 1X ONCE IV Last administered on 08/12at 07:18; Start 08/12/18 at 07:00; Stop 08/12/18 at 07:59; Status DC Lorazepam (Ativan) 2 mg 1X ONCE IV Last administered on 08/12/18at 07:18; Start 08/12/18 at 07:00; Stop 08/12/18 at 07:01; Status DC Thiamine Mononitrate (Vitamin B-1) 100 mg 1X ONCE PO Last administered on at 07:05; Start 08/12/18 at 07:00; Stop 08/12/18 at 07:01; Status DC Multivitamins/ Minerals (I-Tramaine) 1 tab 1X ONCE PO Last administered on at 07:05; Start 08/12/18 at 07:00; Stop 08/12/18 at 07:01; Status DC Metronidazole (Flagyl) 2,000 mg 1X ONCE PO Last administered on 08/12/18at 08: 07; Start 08/12/18 at 07:30; Stop 08/12/18 at 07:31; Status DC Magnesium Sulfate/ Dextrose 100 ml @ 100 mls/hr 1X ONCE IV Last administered on 08/12/18at 08:00; Start 08/12/18 at 08:00; Stop 08/12/18 at 08:59; Status DC Potassium Chloride (KCl Oral Soln) 40 meq 1X ONCE PO Last administered on at 08:24; Start 08/12/18 at 08:00; Stop 08/12/18 at 08:01; Status DC Magnesium Sulfate/ Dextrose 100 ml @ 100 mls/hr 1X ONCE IV ; Start 08/12/18 at 09:00; Stop 08/12/18 at 09:59; Status DC Multivitamins 10 ml/Thiamine HCl 100 mg/Folic Acid 1 mg/Sodium Chloride 1,011.2 ml @ 100 mls/ hr DAILY IV Last administered on 08/12/18at 10:35; Start at 09:00; Stop 08/12/18 at 16:52; Status DC Multivitamins (Thera M Plus) 1 tab DAILY PO Last administered on 08/14/18at 08: 15; Start 08/12/18 at 09:00 Folic Acid (Folic Acid) 1 mg DAILY PO Last administered on 08/14/18at 08:15; Start 08/12/18 at 09:00 Chlordiazepoxide (Librium) 50 mg PRN Q1HR PRN PO For CIWA 8-14 Last administered on 08/13/18at 09:59; Start 08/12/18 at 08:30 Chlordiazepoxide (Librium) 100 mg PRN Q1HR PRN PO For CIWA 15 or greater Last administered on 08/13/18at 15:32; Start 08/12/18 at 08:30 Lorazepam (Ativan) 2 mg PRN Q1HR PRN IV For CIWA 8-14 Last administered on at 13:44; Start 08/12/18 at 08:30 Labetalol HCl (Normodyne Iv Push) 20 mg PRN Q2HR PRN IVP HYPERTENSION, SEE COMMENTS; Start 08/12/18 at 09:00 Magnesium Sulfate/ Dextrose 100 ml @ 25 mls/hr 1X ONCE IV ; Start 08/12/18 at 09:30; Stop 08/12/18 at 09:30; Status DC Potassium Chloride/Sodium Chloride 1,000 ml @ 100 mls/hr 1X ONCE IV Last administered on 08/12/18at 20:52; Start 08/12/18 at 10:00; Stop 08/12/18 at 19 :59; Status DC Potassium Chloride (Klor-Con) 40 meq 1X ONCE PO ; Start 08/12/18 at 09:00; Stop 08/12/18 at 09:00; Status DC Folic Acid (Folic Acid) 1 mg DAILY PO ; Start 08/12/18 at 09:00; Status UNV Multivitamins (Thera M Plus) 1 tab DAILY PO ; Start 08/12/18 at 09:00; Status UNV Potassium Chloride (Klor-Con) 40 meq DAILY PO ; Start 08/13/18 at 09:00; Stop 08/13/18 at 09:00; Status DC Amlodipine Besylate (Norvasc) 5 mg DAILY PO Last administered on 08/14/18at 08: 16; Start 08/12/18 at 09:00 Thiamine Mononitrate (Vitamin B-1) 100 mg DAILY PO Last administered on at 08:15; Start 08/12/18 at 09:00 Lisinopril (Prinivil) 20 mg DAILY PO Last administered on 08/14/18at 08:16; Start 08/12/18 at 09:00 Potassium Chloride (Klor-Con) 20 meq 1X ONCE PO Last administered on at 10:00; Start 08/13/18 at 07:30; Stop 08/13/18 at 07:31; Status DC Potassium Chloride (Klor-Con) 40 meq BID PO Last administered on 08/14/18at 08: 18; Start 08/13/18 at 09:00 Potassium Chloride (Klor-Con) 40 meq 1X ONCE PO Last administered on at 10:00; Start 08/13/18 at 08:00; Stop 08/13/18 at 08:01; Status DC Magnesium Sulfate/ Dextrose 100 ml @ 25 mls/hr 1X ONCE IV Last administered on 08/13/18at 10:12; Start 08/13/18 at 08:00; Stop 08/13/18 at 11:59; Status DC Lorazepam (Ativan) 2 mg PRN Q1HR PRN PO ANXIETY / AGITATION Last administered on 08/14/18at 08:17; Start 08/13/18 at 17:45 Lorazepam (Ativan) 4 mg 1X STAT IM Last administered on 08/13/18at 23:47; Start 08/13/18 at 23:22; Stop 08/13/18 at 23:24; Status DC Ziprasidone (Geodon Im) 20 mg 1X STAT IM Last administered on 08/13/18at 23:48 ; Start 08/13/18 at 23:22; Stop 08/13/18 at 23:24; Status DC Active Scripts Active Klor-Con M20 (Potassium Chloride) 20 Meq Tab.er.prt 40 Meq PO BID MDD low K 14 Days Chlordiazepoxide Hcl 25 Mg Capsule 50 Mg PO PRN Q6HRS PRN MDD 1 Amlodipine-Benazepril 5-20 Mg (Amlodipine Besylate/Benazepril) 1 Each Capsule 1 Cap PO DAILY MDD 1 Thera-M Tablet (Multivits,Ca,Minerals/Iron/Fa) 1 Each Tablet 1 Tab PO DAILY 30 Days Vitamin B-1 (Thiamine Mononitrate) 100 Mg Tablet 100 Mg PO DAILY 30 Days Folic Acid 1 Mg Tablet 1 Mg PO DAILY 30 Days Klor-Con M20 (Potassium Chloride) 20 Meq Tab.er.prt 40 Meq PO DAILY 10 Days Vitals/I & O Vital Sign - Last 24 Hours 08/13/18 08/13/18 08/13/18 08/14/18 15:00 19:00 20:00 03:00 Temp 98.5 98.2 98.8 98.5 98.2 98.8 Pulse 95 93 116 Resp 20 20 18 B/P (MAP) 132/80 (97) 135/96 (109) 135/70 (91) Pulse Ox 98 97 98 O2 Delivery Room Air Room Air Room Air Room Air 08/14/18 08/14/18 08/14/18 06:50 08:16 08:16 Temp 98.8 98.8 Pulse 117 117 117 Resp 18 B/P (MAP) 190/125 (146) 190/125 190/125 Pulse Ox 98 O2 Delivery Room Air Intake and Output 08/13/18 08/13/18 08/14/18 15:01 23:01 07:01 Intake Total 120 ml 180 ml 240 ml Balance 120 ml 180 ml 240 ml CARMELO QURESHI MD Aug 14, 2018 11:11
[2018-08-14] MEDS ORDERED: LORazepam 1 MG TABLET PO PRN ×2 (11:15)
[2018-08-14] MEDS ORDERED: MULTIVIT INFUSN,ADULT 4,VIT K 10 ML, THIAMINE INJ 100 MG, FOLIC ACID INJ 1 MG in IV NOR... IV ONE (12:00)
[2018-08-14] MEDS: LORazepam 1 MG TABLET PO SCH ×2 (12:00→13:44)
[2018-08-14 12:41] VITALS: BP 145/109
[2018-08-14] MEDS ORDERED: THIA100T22 PO (13:39)
[2018-08-14] MEDS ORDERED: FOLI1TAB16 PO (13:39)
[2018-08-14] MEDS ORDERED: LORA-434 PO (13:39)
[2018-08-14] MEDS ORDERED: POTA10TA12 PO (13:39)
== END 2018-08-14 16:30 | disposition home or self-care (01) | DRG 897 ==
LOC: ER 06:04 → 5 NORTH 08:20
PROVIDERS: ADMIT Internal Medicine; ATTEND Internal Medicine
DX: F10.239 Alcohol dependence with withdrawal, unspecified (principal); E87.1 Hypo-osmolality and hyponatremia; S01.01XA Laceration without foreign body of scalp, initial encounter; I10 Essential (primary) hypertension; R56.9 Unspecified convulsions; E87.6 Hypokalemia; E83.42 Hypomagnesemia; D69.6 Thrombocytopenia, unspecified; J45.909 Unspecified asthma, uncomplicated; K21.9 Gastro-esophageal reflux disease without esophagitis; W18.39XA Other fall on same level, initial encounter; Z90.710 Acquired absence of both cervix and uterus; Z88.0 Allergy status to penicillin; Z82.49 Family history of ischemic heart disease and other diseases of the circulatory system; Y93.89 Activity, other specified; Y92.89 Other specified places as the place of occurrence of the external cause; Y99.8 Other external cause status
CPT/HCPCS: 36415; 70450; 70551; 71045; 80048; 80053; 80307; 81001; 83690; 83735; 84132; 84702; 85025; 87086; 93005; 95816; 96374; G0480; J2060; J3475; J3486; J7030; 99285-25

== ENCOUNTER 2019-04-21 13:41 | Emergency (ER) | payer SELFPAY ==
[~2019-04-21] VITALS: Ht 162.6 cm; Wt 59.0 kg
[~2019-04-21 13:41] MED LIST changes: -AMLO1CAP10 PO; +AMLO1CAP11 PO; +CHLO25CA9 PO; +LORA-434 PO; +POTA10TA12 PO; +VENL37.5 PO
[2019-04-21 14:40] LABS: BASO % 0 % (0-3); EOS % 0 % (0-3); HEMATOCRIT 36.5 % (36.0-47.0); HEMOGLOBIN 12.6 g/dL (12.0-15.5); LYMPH # 0.7 x10^3/uL (1.0-4.8); LYMPH % 10 % (24-48); MEAN CORPUSCULAR HEMOGLOBIN 34 pg (25-35); MEAN CORPUSCULAR HGB CONC 35 g/dL (31-37); MEAN CORPUSCULAR VOLUME 97 fL (79-100); MONO # 0.5 x10^3/uL (0.0-1.1); MONO % 7 % (0-9); NEUT % 83 % (31-73); PLATELET COUNT 109 x10^3/uL (140-400); RED BLOOD COUNT 3.75 x10^6/uL (3.50-5.40); RED CELL DISTRIBUTION WIDTH 17.2 % (11.5-14.5); WHITE BLOOD COUNT 7.3 x10^3/uL (4.0-11.0)
[2019-04-21] MEDS ORDERED: ONDANSETRON PF 4 MG/2 ML VIAL. IV ONE (14:45)
[2019-04-21] MEDS ORDERED: KETOROLAC 30 MG/ML VIAL. IV ONE (14:45)
[2019-04-21] MEDS ORDERED: MULTIVIT INFUSN,ADULT 4,VIT K 10 ML, THIAMINE INJ 100 MG, FOLIC ACID INJ 1 MG in IV NOR... IV ONE (14:45)
[2019-04-21] MEDS ORDERED: FAMOTIDINE 20 MG/2 ML VIAL IVP ONE (14:45)
[2019-04-21 14:49] LABS: CREATININE 1.9 mg/dL (0.6-1.0); GFR 34.6; POTASSIUM 3.6 mmol/L (3.5-5.1)
[2019-04-21 14:54] LABS: ALBUMIN 5.1 g/dL (3.4-5.0); TOTAL BILIRUBIN 1.1 mg/dL (0.2-1.0); TOTAL PROTEIN 10.3 g/dL (6.4-8.2)
[2019-04-21 15:21] LABS: BILIRUBIN,URINE LARGE (NEG); CLARITY,URINE CLEAR; COLOR,URINE YELLOW; NITRITE,URINE NEGATIVE (NEG); PH,URINE 5.5; PROTEIN,URINE 100 mg/dL (NEG-TRACE)
[2019-04-21 15:25] LABS: HYALINE CASTS, URINE MANY /HPF; SQUAMOUS EPITHELIAL CELL,UR MOD /LPF
[2019-04-21 15:26] LABS: BACTERIA,URINE FEW /HPF (0-FEW); WBC,URINE OCC /HPF (0-4)
[2019-04-21 15:28] LABS: AMPHETAMINE/METHAMPHETAMINE NEG (NEG); BARBITURATES NEG (NEG); BENZODIAZEPINES NEG (NEG); CANNABINOIDS NEG (NEG); COCAINE NEG (NEG); METHADONE NEG (NEG); OPIATES NEG (NEG); PHENCYCLIDINE NEG (NEG)
--- NOTE | 2019-04-21 15:44 | PDOC1 ---
History and Physical Date of Admission Date of Admission DATE: 04/21/19 TIME: 15:43 Past Medical History Past Medical History anxiety disorder HX critical hypokalemia HX marked hypomag, Thrombocytopenia in an alcoholic transaminitis // alcohol Abuse hx Past Medical History Past Medical History Past Medical History Past Medical History: Hypertension, Seizure Additional Past Medical Histor: ETOH abuse with withdraw seizure Past Surgical History: Hysterectomy Smoking: Cigarettes Alcohol Use: Occasionally Drug Use: None Cardiovascular: HTN Pulmonary: Asthma CENTRAL NERVOUS SYSTEM: Seizure GI: GERD Past Surgical History Past Surgical History: Hysterectomy Family History Family History: Hypertension Social History Smoke: <1 pack per day ALCOHOL: heavy Drugs: Marijuana Cardiovascular: HTN Pulmonary: Asthma CENTRAL NERVOUS SYSTEM: Seizure GI: GERD Psych: Addictions Past Surgical History Past Surgical History: Hysterectomy Family History Family History: Hypertension Social History ALCOHOL: heavy Drugs: Marijuana Current Medications Current Medications Current Medications Ondansetron HCl (Zofran) 4 mg 1X ONCE IV Last administered on 04/21/19at 14:50; Start 04/21/19 at 14:45; Stop 04/21/19 at 14:46; Status DC Famotidine (Pepcid Vial) 20 mg 1X ONCE IVP Last administered on 04/21/19at 14:50; Start 04/21/19 at 14:45; Stop 04/21/19 at 14:46; Status DC Ketorolac Tromethamine (Toradol 30mg Vial) 15 mg 1X ONCE IV Last administered on 04/21/19at 14:50; Start 04/21/19 at 14:45; Stop 04/21/19 at 14:46; Status DC Multivitamins 10 ml/Thiamine HCl 100 mg/Folic Acid 1 mg/Sodium Chloride 1,011.2 ml @ 1,000.088 mls/hr 1X ONCE IV Last administered on 04/21/19at 15:03; Start 04/21/19 at 14:45; Stop 04/21/19 at 15:45 Active Scripts Active Effexor Xr (Venlafaxine Hcl) 37.5 Mg Cap.er.24h 1 Cap PO DAILY 30 Days Potassium Chloride 10 Meq Tab.sr.24h 10 Meq PO DAILY Vitamin B-1 (Thiamine Mononitrate) 100 Mg Tablet 100 Mg PO DAILY 30 Days Folic Acid 1 Mg Tablet 1 Mg PO DAILY 30 Days Amlodipine-Benazepril 5-20 Mg (Amlodipine Besylate/Benazepril) 1 Each Capsule 1 Cap PO DAILY MDD 1 Thera-M Tablet (Multivits,Ca,Minerals/Iron/Fa) 1 Each Tablet 1 Tab PO DAILY 30 Days Allergies Allergies: Coded Allergies: Penicillins (Verified Allergy, Intermediate, 12/20/16) Vitals Vitals Vital Signs Date Time Temp Pulse Resp B/P (MAP) Pulse Ox O2 Delivery O2 Flow Rate FiO2 04/21/19 14:03 99.5 118 16 122/84 (97) 100 Room Air 99.5 Labs Labs Laboratory Tests Test 04/21/19 14:16 04/21/19 15:09 White Blood Count 7.3 x10^3/uL (4.0-11.0) Red Blood Count 3.75 x10^6/uL (3.50-5.40) Hemoglobin 12.6 g/dL (12.0-15.5) Hematocrit 36.5 % (36.0-47.0) Mean Corpuscular Volume 97 fL (79-100) Mean Corpuscular Hemoglobin 34 pg (25-35) Mean Corpuscular Hemoglobin Concent 35 g/dL (31-37) Red Cell Distribution Width 17.2 % (11.5-14.5) Platelet Count 109 x10^3/uL (140-400) Neutrophils (%) (Auto) 83 % (31-73) Lymphocytes (%) (Auto) 10 % (24-48) Monocytes (%) (Auto) 7 % (0-9) Eosinophils (%) (Auto) 0 % (0-3) Basophils (%) (Auto) 0 % (0-3) Neutrophils # (Auto) 6.0 x10^3/uL (1.8-7.7) Lymphocytes # (Auto) 0.7 x10^3/uL (1.0-4.8) Monocytes # (Auto) 0.5 x10^3/uL (0.0-1.1) Eosinophils # (Auto) 0.0 x10^3/uL (0.0-0.7) Basophils # (Auto) 0.0 x10^3/uL (0.0-0.2) Sodium Level 127 mmol/L (136-145) Potassium Level 3.6 mmol/L (3.5-5.1) Chloride Level 80 mmol/L (98-107) Carbon Dioxide Level 15 mmol/L (21-32) Anion Gap 32 (6-14) Blood Urea Nitrogen 37 mg/dL (7-20) Creatinine 1.9 mg/dL (0.6-1.0) Estimated GFR (Cockcroft-Gault) 34.6 BUN/Creatinine Ratio 19 (6-20) Glucose Level 92 mg/dL (70-99) Calcium Level 9.0 mg/dL (8.5-10.1) Total Bilirubin 1.1 mg/dL (0.2-1.0) Aspartate Amino Transf (AST/SGOT) 98 U/L (15-37) Alanine Aminotransferase (ALT/SGPT) 33 U/L (14-59) Alkaline Phosphatase 141 U/L (46-116) Total Protein 10.3 g/dL (6.4-8.2) Albumin 5.1 g/dL (3.4-5.0) Albumin/Globulin Ratio 1.0 (1.0-1.7) Lipase 857 U/L (73-393) Ethyl Alcohol Level < 10 mg/dL (0-10) Urine Collection Type Unknown Urine Color Yellow Urine Clarity Clear Urine pH 5.5 Urine Specific [place] 1.020 Urine Protein 100 mg/dL (NEG-TRACE) Urine Glucose (UA) Negative mg/dL (NEG) Urine Ketones (Stick) >=80 mg/dL (NEG) Urine Blood Moderate (NEG) Urine Nitrite Negative (NEG) Urine Bilirubin Large (NEG) Urine Urobilinogen Dipstick 1.0 mg/dL (0.2 mg/dL) Urine Leukocyte Esterase Negative (NEG) Urine RBC 1-2 /HPF (0-2) Urine WBC Occ /HPF (0-4) Urine Squamous Epithelial Cells Mod /LPF Urine Bacteria Few /HPF (0-FEW) Urine Hyaline Casts Many /HPF Urine Mucus Mod /LPF Urine Opiates Screen Neg (NEG) Urine Methadone Screen Neg (NEG) Urine Barbiturates Neg (NEG) Urine Phencyclidine Screen Neg (NEG) Urine Amphetamine/Methamphetamine Neg (NEG) Urine Benzodiazepines Screen Neg (NEG) Urine Cocaine Screen Neg (NEG) Urine Cannabinoids Screen Neg (NEG) Urine Ethyl Alcohol Neg (NEG) Laboratory Tests Test 04/21/19 14:16 04/21/19 15:09 White Blood Count 7.3 x10^3/uL (4.0-11.0) Red Blood Count 3.75 x10^6/uL (3.50-5.40) Hemoglobin 12.6 g/dL (12.0-15.5) Hematocrit 36.5 % (36.0-47.0) Mean Corpuscular Volume 97 fL (79-100) Mean Corpuscular Hemoglobin 34 pg (25-35) Mean Corpuscular Hemoglobin Concent 35 g/dL (31-37) Red Cell Distribution Width 17.2 % (11.5-14.5) Platelet Count 109 x10^3/uL (140-400) Neutrophils (%) (Auto) 83 % (31-73) Lymphocytes (%) (Auto) 10 % (24-48) Monocytes (%) (Auto) 7 % (0-9) Eosinophils (%) (Auto) 0 % (0-3) Basophils (%) (Auto) 0 % (0-3) Neutrophils # (Auto) 6.0 x10^3/uL (1.8-7.7) Lymphocytes # (Auto) 0.7 x10^3/uL (1.0-4.8) Monocytes # (Auto) 0.5 x10^3/uL (0.0-1.1) Eosinophils # (Auto) 0.0 x10^3/uL (0.0-0.7) Basophils # (Auto) 0.0 x10^3/uL (0.0-0.2) Sodium Level 127 mmol/L (136-145) Potassium Level 3.6 mmol/L (3.5-5.1) Chloride Level 80 mmol/L (98-107) Carbon Dioxide Level 15 mmol/L (21-32) Anion Gap 32 (6-14) Blood Urea Nitrogen 37 mg/dL (7-20) Creatinine 1.9 mg/dL (0.6-1.0) Estimated GFR (Cockcroft-Gault) 34.6 BUN/Creatinine Ratio 19 (6-20) Glucose Level 92 mg/dL (70-99) Calcium Level 9.0 mg/dL (8.5-10.1) Total Bilirubin 1.1 mg/dL (0.2-1.0) Aspartate Amino Transf (AST/SGOT) 98 U/L (15-37) Alanine Aminotransferase (ALT/SGPT) 33 U/L (14-59) Alkaline Phosphatase 141 U/L (46-116) Total Protein 10.3 g/dL (6.4-8.2) Albumin 5.1 g/dL (3.4-5.0) Albumin/Globulin Ratio 1.0 (1.0-1.7) Lipase 857 U/L (73-393) Ethyl Alcohol Level < 10 mg/dL (0-10) Urine Collection Type Unknown Urine Color Yellow Urine Clarity Clear Urine pH 5.5 Urine Specific [place] 1.020 Urine Protein 100 mg/dL (NEG-TRACE) Urine Glucose (UA) Negative mg/dL (NEG) Urine Ketones (Stick) >=80 mg/dL (NEG) Urine Blood Moderate (NEG) Urine Nitrite Negative (NEG) Urine Bilirubin Large (NEG) Urine Urobilinogen Dipstick 1.0 mg/dL (0.2 mg/dL) Urine Leukocyte Esterase Negative (NEG) Urine RBC 1-2 /HPF (0-2) Urine WBC Occ /HPF (0-4) Urine Squamous Epithelial Cells Mod /LPF Urine Bacteria Few /HPF (0-FEW) Urine Hyaline Casts Many /HPF Urine Mucus Mod /LPF Urine Opiates Screen Neg (NEG) Urine Methadone Screen Neg (NEG) Urine Barbiturates Neg (NEG) Urine Phencyclidine Screen Neg (NEG) Urine Amphetamine/Methamphetamine Neg (NEG) Urine Benzodiazepines Screen Neg (NEG) Urine Cocaine Screen Neg (NEG) Urine Cannabinoids Screen Neg (NEG) Urine Ethyl Alcohol Neg (NEG) VTE Prophylaxis Ordered VTE Prophylaxis Devices: No VTE Pharmacological Prophylaxi: Yes KEVIN MERIDA MD Apr 21, 2019 15:44
[2019-04-21] MEDS ORDERED: ONDA4TAB12 PO (15:58)
[2019-04-21] MEDS ORDERED: FAMO-63 PO (15:58)
--- NOTE | 2019-04-21 15:58 | PHYS DOC ---
Past Medical History Past Medical History: Hypertension, Seizure Additional Past Medical Histor: ETOH abuse with withdraw seizure Past Surgical History: Hysterectomy Additional Past Surgical Histo: douglas "extra nipple" removed Alcohol Use: Heavy Drug Use: Marijuana Adult General Chief Complaint Chief Complaint: ABDOMINAL PAIN HPI HPI Patient is a 43 year old [f__sex] who presents with [] Review of Systems Review of Systems Constitutional: Denies fever or chills [] Eyes: Denies change in visual acuity, redness, or eye pain [] HENT: Denies nasal congestion or sore throat [] Respiratory: Denies cough or shortness of breath [] Cardiovascular: No additional information not addressed in HPI [] GI: Denies abdominal pain, nausea, vomiting, bloody stools or diarrhea [] : Denies dysuria or hematuria [] Musculoskeletal: Denies back pain or joint pain [] Integument: Denies rash or skin lesions [] Neurologic: Denies headache, focal weakness or sensory changes [] Endocrine: Denies polyuria or polydipsia [] All other systems were reviewed and found to be within normal limits, except as documented in this note. Current Medications Current Medications Current Medications Medications (Trade) Dose Ordered Sig/Ashley Start Time Stop Time Status Last Admin Dose Admin Famotidine (Pepcid Vial) 20 mg 1X ONCE 04/21/19 14:45 04/21/19 14:46 DC 04/21/19 14:50 20 MG Ketorolac Tromethamine (Toradol 30mg Vial) 15 mg 1X ONCE 04/21/19 14:45 04/21/19 14:46 DC 04/21/19 14:50 15 MG Multivitamins 10 ml/Thiamine HCl 100 mg/Folic Acid 1 mg/Sodium Chloride 1,011.2 ml @ 1,000.088 mls/hr 1X ONCE 04/21/19 14:45 04/21/19 15:45 DC 04/21/19 15:03 1,000.088 MLS/HR Ondansetron HCl (Zofran) 4 mg 1X ONCE 04/21/19 14:45 04/21/19 14:46 DC 04/21/19 14:50 4 MG Allergies Allergies Allergies Coded Allergies Type Severity Reaction Last Updated Verified Penicillins Allergy Intermediate 12/20/16 Yes Physical Exam Physical Exam Constitutional: Well developed, well nourished, no acute distress, non-toxic appearance. [] HENT: Normocephalic, atraumatic, bilateral external ears normal, oropharynx snow st, no oral exudates, nose normal. [] Eyes: PERRLA, EOMI, conjunctiva normal, no discharge. [] Neck: Normal range of motion, no tenderness, supple, no stridor. [] Cardiovascular:Heart rate regular rhythm, no murmur [] Lungs & Thorax: Bilateral breath sounds clear to auscultation [] Abdomen: Bowel sounds normal, soft, no tenderness, no masses, no pulsatile masses. [] Skin: Warm, dry, no erythema, no rash. [] Back: No tenderness, no CVA tenderness. [] Extremities: No tenderness, no cyanosis, no clubbing, ROM intact, no edema. [] Neurologic: Alert and oriented X 3, normal motor function, normal sensory function, no focal deficits noted. [] Psychologic: Affect normal, judgement normal, mood normal. [] Current Patient Data Vital Signs Vital Signs Date Time Temp Pulse Resp B/P (MAP) Pulse Ox O2 Delivery O2 Flow Rate FiO2 04/21/19 14:03 99.5 118 16 122/84 (97) 100 Room Air 99.5 Lab Values Laboratory Tests Test 04/21/19 14:16 04/21/19 15:09 White Blood Count 7.3 x10^3/uL (4.0-11.0) Red Blood Count 3.75 x10^6/uL (3.50-5.40) Hemoglobin 12.6 g/dL (12.0-15.5) Hematocrit 36.5 % (36.0-47.0) Mean Corpuscular Volume 97 fL (79-100) Mean Corpuscular Hemoglobin 34 pg (25-35) Mean Corpuscular Hemoglobin Concent 35 g/dL (31-37) Red Cell Distribution Width 17.2 % (11.5-14.5) H Platelet Count 109 x10^3/uL (140-400) L Neutrophils (%) (Auto) 83 % (31-73) H Lymphocytes (%) (Auto) 10 % (24-48) L Monocytes (%) (Auto) 7 % (0-9) Eosinophils (%) (Auto) 0 % (0-3) Basophils (%) (Auto) 0 % (0-3) Neutrophils # (Auto) 6.0 x10^3/uL (1.8-7.7) Lymphocytes # (Auto) 0.7 x10^3/uL (1.0-4.8) L Monocytes # (Auto) 0.5 x10^3/uL (0.0-1.1) Eosinophils # (Auto) 0.0 x10^3/uL (0.0-0.7) Basophils # (Auto) 0.0 x10^3/uL (0.0-0.2) Sodium Level 127 mmol/L (136-145) L Potassium Level 3.6 mmol/L (3.5-5.1) Chloride Level 80 mmol/L (98-107) L Carbon Dioxide Level 15 mmol/L (21-32) L Anion Gap 32 (6-14) H Blood Urea Nitrogen 37 mg/dL (7-20) H Creatinine 1.9 mg/dL (0.6-1.0) H Estimated GFR (Cockcroft-Gault) 34.6 BUN/Creatinine Ratio 19 (6-20) Glucose Level 92 mg/dL (70-99) Calcium Level 9.0 mg/dL (8.5-10.1) Total Bilirubin 1.1 mg/dL (0.2-1.0) H Aspartate Amino Transferase (AST) 98 U/L (15-37) H Alanine Aminotransferase (ALT) 33 U/L (14-59) Alkaline Phosphatase 141 U/L (46-116) H Total Protein 10.3 g/dL (6.4-8.2) H Albumin 5.1 g/dL (3.4-5.0) H Albumin/Globulin Ratio 1.0 (1.0-1.7) Lipase 857 U/L (73-393) H Ethyl Alcohol Level < 10 mg/dL (0-10) Urine Collection Type Unknown Urine Color Yellow Urine Clarity Clear Urine pH 5.5 Urine Specific [place] 1.020 Urine Protein 100 mg/dL (NEG-TRACE) Urine Glucose (UA) Negative mg/dL (NEG) Urine Ketones (Stick) >=80 mg/dL (NEG) Urine Blood Moderate (NEG) Urine Nitrite Negative (NEG) Urine Bilirubin Large (NEG) Urine Urobilinogen Dipstick 1.0 mg/dL (0.2 mg/dL) Urine Leukocyte Esterase Negative (NEG) Urine RBC 1-2 /HPF (0-2) Urine WBC Occ /HPF (0-4) Urine Squamous Epithelial Cells Mod /LPF Urine Bacteria Few /HPF (0-FEW) Urine Hyaline Casts Many /HPF Urine Mucus Mod /LPF Urine Opiates Screen Neg (NEG) Urine Methadone Screen Neg (NEG) Urine Barbiturates Neg (NEG) Urine Phencyclidine Screen Neg (NEG) Urine Amphetamine/Methamphetamine Neg (NEG) Urine Benzodiazepines Screen Neg (NEG) Urine Cocaine Screen Neg (NEG) Urine Cannabinoids Screen Neg (NEG) Urine Ethyl Alcohol Neg (NEG) Laboratory Tests 04/21/19 14:16 Laboratory Tests 04/21/19 14:16 EKG EKG [] Radiology/Procedures Radiology/Procedures [] Course & Med Decision Making Course & Med Decision Making Pertinent Labs and Imaging studies reviewed. (See chart for details) [] Dragon Disclaimer Dragon Disclaimer This electronic medical record was generated, in whole or in part, using a voice recognition dictation system. Departure Departure Impression: Primary Impression: Hyponatremia Additional Impressions: Pancreatitis History of alcohol abuse ESTHELA (acute kidney injury) Left against medical advice Disposition: 07 AGAINST MEDICAL ADVICE Condition: GUARDED Referrals: NO PCP (PCP) ALISON REYNOSO MD Patient Instructions: Acute Kidney Injury, Acute Pancreatitis, [id number], Alcohol Withdrawal, [id number], Discharge Against Medical Advice, Hyponatremia, [id number] Scripts Famotidine (PEPCID) 20 Mg Tablet 20 MG PO BID, #20 TAB Prov: CAMERON YIP DO 04/21/19 Ondansetron (ONDANSETRON ODT) 4 Mg Tab.rapdis 1 TAB PO PRN Q6-8HRS PRN for NAUSEA, #16 TAB Prov: CAMERON YIP DO 04/21/19 Problem Qualifiers Additional Impressions: Pancreatitis Chronicity: acute Pancreatitis type: unspecified pancreatitis type Acute pancreatitis complication: unspecified Qualified Codes: K85.90 - Acute pancreatitis without necrosis or infection, unspecified CAMERON YIP DO Apr 21, 2019 15:58
[2019-04-21 16:04] VITALS: BP 133/81
== END 2019-04-21 16:35 | disposition left against medical advice (07) ==
LOC: ER 13:41
DX: K85.90 Acute pancreatitis without necrosis or infection, unspecified (principal); N17.9 Acute kidney failure, unspecified; I10 Essential (primary) hypertension; E87.1 Hypo-osmolality and hyponatremia; F10.20 Alcohol dependence, uncomplicated; Y90.0 Blood alcohol level of less than 20 mg/100 ml; F41.9 Anxiety disorder, unspecified; Z90.710 Acquired absence of both cervix and uterus; Z88.0 Allergy status to penicillin
CPT/HCPCS: 36415; 80053; 80307; 81001; 83690; 85025; 96365; 96375; 99284; G0480; J1885; J2405; J3490; J7030

== ENCOUNTER 2021-04-03 01:07 | Emergency (ER) | payer SELFPAY ==
[~2021-04-03] VITALS: Ht 170.2 cm; Wt 79.0 kg
[~2021-04-03 01:07] MED LIST changes: +FAMO-63 PO; -MULT1TAB90 PO; +MULT1TAB92 PO; +ONDA4TAB12 PO
--- NOTE | 2021-04-03 01:27 | ED.ADGEN ---
Past Medical History Past Medical History: Alcoholism, Hypertension, Seizure Additional Past Medical Histor: ETOH abuse with withdraw seizure Past Surgical History: Hysterectomy Additional Past Surgical Histo: douglas "extra nipple" removed Smoking Status: Former Smoker Alcohol Use: Heavy Drug Use: Marijuana General Adult EDM: Chief Complaint: ALCOHOL INTOXICATION HPI: HPI: Patient is a 45 year old female coming in via EMS for alcohol intoxication Xiomy. Witnesses states that she had parked her car got out some marijuana and fell. There is no reported loss of consciousness. Patient uncooperative with history. Review of Systems: Review of Systems: All other systems within normal limits except for as noted in the HPI Current Medications: Current Medications Medications (Trade) Dose Ordered Sig/Ashley Start Time Stop Time Status Last Admin Dose Admin Chlorhexidine Gluconate (Peridex) 15 ml 1X ONCE 04/03/21 02:00 04/03/21 02:01 DC 04/03/21 01:44 15 ML Diphtheria/ Tetanus/Acell Pertussis (ADACEL TDap SYRINGE) 0.5 ml ONCE ONCE 04/03/21 03:30 04/03/21 03:31 DC 04/03/21 06:38 0.5 ML Potassium Chloride (Klor-Con) 40 meq 1X ONCE 04/03/21 03:00 04/03/21 03:01 DC 04/03/21 06:38 40 MEQ Allergies: Allergies: Allergies Coded Allergies Type Severity Reaction Last Updated Verified Penicillins Allergy Intermediate 12/20/16 Yes Physical Exam: PE: Constitutional: Well developed, well nourished, no acute distress, non-toxic appearance. [] HENT: Normocephalic, atraumatic, bilateral external ears normal, nose normal. Superficial less than 1 cm laceration inside lower lip [] Eyes: PERRLA, conjunctiva normal, no discharge. [] Neck: No rigidity, supple, no stridor. [] Cardiovascular: Regular rate and rhythm, brisk cap refill [] Lungs & Thorax: Non labored symmetric respirations, no tachypnea or respiratory distress [] Abdomen: Soft, nondistended. Skin: Warm, dry, no erythema, no rash. [] Back: Unremarkable Extremities: No deformities, range of motion grossly intact, no lower extremity edema [] Neurologic: Alert and oriented X 3, no focal deficits noted. [] Psychologic: Affect normal, judgement normal, mood normal. [] Current Patient Data: Labs: Laboratory Tests Test 04/03/21 01:52 White Blood Count 4.9 x10^3/uL (4.0-11.0) Red Blood Count 3.30 x10^6/uL (3.50-5.40) L Hemoglobin 11.2 g/dL (12.0-15.5) L Hematocrit 32.6 % (36.0-47.0) L Mean Corpuscular Volume 99 fL (79-100) Mean Corpuscular Hemoglobin 34 pg (25-35) Mean Corpuscular Hemoglobin Concent 34 g/dL (31-37) Red Cell Distribution Width 16.2 % (11.5-14.5) H Platelet Count 274 x10^3/uL (140-400) Neutrophils (%) (Auto) 41 % (31-73) Lymphocytes (%) (Auto) 50 % (24-48) H Monocytes (%) (Auto) 8 % (0-9) Eosinophils (%) (Auto) 0 % (0-3) Basophils (%) (Auto) 1 % (0-3) Neutrophils # (Auto) 2.0 x10^3/uL (1.8-7.7) Lymphocytes # (Auto) 2.5 x10^3/uL (1.0-4.8) Monocytes # (Auto) 0.4 x10^3/uL (0.0-1.1) Eosinophils # (Auto) 0.0 x10^3/uL (0.0-0.7) Basophils # (Auto) 0.0 x10^3/uL (0.0-0.2) Sodium Level 146 mmol/L (136-145) H Potassium Level 2.9 mmol/L (3.5-5.1) *L Chloride Level 101 mmol/L (98-107) Carbon Dioxide Level 26 mmol/L (21-32) Anion Gap 19 (6-14) H Blood Urea Nitrogen 9 mg/dL (7-20) Creatinine 1.0 mg/dL (0.6-1.0) Estimated GFR (Cockcroft-Gault) 71.9 BUN/Creatinine Ratio 9 (6-20) Glucose Level 72 mg/dL (70-99) Calcium Level 8.7 mg/dL (8.5-10.1) Total Bilirubin 0.2 mg/dL (0.2-1.0) Aspartate Amino Transferase (AST) 96 U/L (15-37) H Alanine Aminotransferase (ALT) 105 U/L (14-59) H Alkaline Phosphatase 104 U/L (46-116) Total Protein 8.1 g/dL (6.4-8.2) Albumin 4.3 g/dL (3.4-5.0) Albumin/Globulin Ratio 1.1 (1.0-1.7) Ethyl Alcohol Level 452 mg/dL (0-10) *H Laboratory Tests 04/03/21 01:52 Laboratory Tests 04/03/21 01:52 Vital Signs: Vital Signs Date Time Temp Pulse Resp B/P (MAP) Pulse Ox O2 Delivery O2 Flow Rate FiO2 04/03/21 04:57 64 16 100/55 (70) 96 Room Air 04/03/21 01:19 97.5 97.5 EKG: EKG: [] Heart Score: C/O Chest Pain: No Risk Factors: Risk Factors: DM, Current or recent (<one month) smoker, HTN, HLP, family history of CAD, obesity. Risk Scores: Score 0 - 3: 2.5% MACE over next 6 weeks - Discharge Home Score 4 - 6: 20.3% MACE over next 6 weeks - Admit for Clinical Observation Score 7 - 10: 72.7% MACE over next 6 weeks - Early Invasive Strategies Radiology/Procedures: Radiology/Procedures: [] Course & Med Decision Making: Course & Med Decision Making -- 0600: I assumed care from Dr. King at this time, patient pending sobriety. 0645: Patient is now clinically sober, walks with steady gait, ANO x3, GCS 15. She is not driving home, her son is going to drive her back to her residence. She was offered alcohol detox resources, PAT evaluation, she refused all. She had no further concerns or complaints at the time of discharge. Prescriptions and laceration care resources were sent by Dr. King previously. DO Oz Elias Disclaimer: Oz Disclaimer: This electronic medical record was generated, in whole or in part, using a voice recognition dictation system. Departure Departure Impression: Primary Impression: Alcohol intoxication Additional Impressions: Hypokalemia Fall Laceration of lower lip Disposition: HOME / SELF CARE / HOMELESS Condition: IMPROVED Referrals: NO PCP (PCP) Patient Instructions: Mouth Laceration Scripts Chlorhexidine Gluconate (PERIOGARD) 473 Ml Mouthwash 15 ML PO BID for antibiotic for 5 Days, #473 ML Prov: NANCIE KING MD 04/03/21 Problem Qualifiers NANCIE KING MD Apr 03, 2021 01:27 ELEANOR SIMON DO Apr 03, 2021 06:47
[2021-04-03] MEDS ORDERED: CHLORHEXIDINE 0.12% 15 ML MOUTHWASH. SWSP ONE (02:00)
[2021-04-03 02:02] LABS: BASO % 1 % (0-3); EOS % 0 % (0-3); HEMATOCRIT 32.6 % (36.0-47.0); HEMOGLOBIN 11.2 g/dL (12.0-15.5); LYMPH # 2.5 x10^3/uL (1.0-4.8); LYMPH % 50 % (24-48); MEAN CORPUSCULAR HEMOGLOBIN 34 pg (25-35); MEAN CORPUSCULAR HGB CONC 34 g/dL (31-37); MEAN CORPUSCULAR VOLUME 99 fL (79-100); MONO # 0.4 x10^3/uL (0.0-1.1); MONO % 8 % (0-9); NEUT % 41 % (31-73); PLATELET COUNT 274 x10^3/uL (140-400); RED CELL DISTRIBUTION WIDTH 16.2 % (11.5-14.5); WHITE BLOOD COUNT 4.9 x10^3/uL (4.0-11.0)
[2021-04-03 02:16] LABS: ALBUMIN 4.3 g/dL (3.4-5.0); ALBUMIN/GLOBULIN RATIO 1.1 (1.0-1.7); CALCIUM 8.7 mg/dL (8.5-10.1); GFR 71.9; TOTAL BILIRUBIN 0.2 mg/dL (0.2-1.0); TOTAL PROTEIN 8.1 g/dL (6.4-8.2)
[2021-04-03 02:18] LABS: POTASSIUM 2.9 mmol/L (3.5-5.1)
[2021-04-03] MEDS ORDERED: POTASSIUM CHLORIDE 20 MEQ TABLET.ER. PO ONE (03:00)
[2021-04-03] MEDS ORDERED: DIPH,PERTUSS(ACELL),TET VAC/PF 0.5 ML SYRINGE. VAX IM ONE (03:30)
[2021-04-03] MEDS ORDERED: CHLO473M2 PO (05:55)
[2021-04-03 06:27] VITALS: BP 114/58
== END 2021-04-03 08:00 | disposition home or self-care (01) ==
LOC: ER 01:07
DX: S01.511A Laceration without foreign body of lip, initial encounter (principal); E87.6 Hypokalemia; F10.229 Alcohol dependence with intoxication, unspecified; Y90.8 Blood alcohol level of 240 mg/100 ml or more; I10 Essential (primary) hypertension; Z87.891 Personal history of nicotine dependence; Z88.0 Allergy status to penicillin; W18.39XA Other fall on same level, initial encounter; Y93.89 Activity, other specified; Y92.89 Other specified places as the place of occurrence of the external cause; Y99.8 Other external cause status
CPT/HCPCS: 36415; 80053; 85025; 90471; 90715; 99285; G0480

== ENCOUNTER 2021-04-25 20:30 | Emergency (ER) | payer SELFPAY ==
[~2021-04-25 20:30] MED LIST changes: +CHLO473M2 PO; +POTA-121 PO; -POTA20TA4 PO
[2021-04-25] MEDS ORDERED: SODIUM BICARB ADULT 8.4% 50 MEQ/50 ML DISP.SYRIN. ONE (20:35)
[2021-04-25] MEDS ORDERED: SUCCINYLCHOLINE 200 MG/10 ML VIAL. ONE (20:59)
[2021-04-25] MEDS ORDERED: EPINEPHrine SYRINGE 1 MG/10 ML SYRINGE ONE (21:00)
[2021-04-25] MEDS ORDERED: NALOXONE 0.4 MG/ML VIAL. ONE (21:00)
--- NOTE | 2021-04-25 21:18 | PHYS DOC ---
Past Medical History Past Medical History: Alcoholism, Hypertension, Seizure Additional Past Medical Histor: ETOH abuse with withdraw seizure Past Surgical History: Other Additional Past Surgical Histo: unknown Smoking Status: Former Smoker Alcohol Use: Heavy Drug Use: Marijuana General Adult HPI: HPI: 45-year-old female past medical history of hypertension and alcohol abuse, presents to the ED per EMS in cardiac arrest, patient was found in asystole with low glucose, was given D10 and right IO placed. Patient receiving mechanical chest compressions with Rishabh device. Unobtainable due to clenched jaw. Last known well at 6:30 PM when pt had an argument with her family member whom she told she was going to sleep in the car. Was found unresponsive hours later. Review of Systems: Review of Systems: Review of systems unobtainable Heart Score: C/O Chest Pain: N/A Risk Factors: Risk Factors: DM, Current or recent (<one month) smoker, HTN, HLP, family history of CAD, obesity. Risk Scores: Score 0 - 3: 2.5% MACE over next 6 weeks - Discharge Home Score 4 - 6: 20.3% MACE over next 6 weeks - Admit for Clinical Observation Score 7 - 10: 72.7% MACE over next 6 weeks - Early Invasive Strategies Current Medications: Current Medications Medications (Trade) Dose Ordered Sig/Ashley Start Time Stop Time Status Last Admin Dose Admin Succinylcholine Chloride (Anectine) 200 mg STK-MED ONCE 04/25/21 20:59 04/25/21 21:00 DC Allergies: Allergies: Allergies Coded Allergies Type Severity Reaction Last Updated Verified Penicillins Allergy Intermediate 12/20/16 Yes Physical Exam: PE: Constitutional: cold extremities, HENT: Normocephalic, atraumatic, nasal trumpet left nare, unable to open jaw Eyes: Nonreactive pupils, conjunctiva normal Neck: No JVD, Cardiovascular: Asystole on monitor Lungs & Thorax: Unable to ventilate patient, no breath sounds Abdomen: soft, no rigidity Skin: No rash or mottling, Back: No midline step-offs tenderness, no bruising Extremities: Pulseless, no deformities, R IO placed Neurologic: GCS 3, arms stiff/in rigor mortis Psychologic: unresponsive EKG: EKG: [] Radiology/Procedures: Radiology/Procedures: [] Course & Med Decision Making: Course & Med Decision Making Pertinent Labs and Imaging studies reviewed. (See chart for details) Patient asystole with suspected almost near-2 hour downtime. ATLS protocol was continued. Epinephrine, 2 amps D50 and 3 amps of bicarb were given. Left IO was placed by RN. 0.8 mg Narcan given, 100 milligrams of succinylcholine given. Unable to open jaw or ventilate. Emergent cric placed and pt was easily bagged. End tidal CO2 never above 20. Bedside [id number] ultrasound performed with no cardiac activity. Unable to obtain ROSC. Time of 2051. EMR was reviewed and patient has a history of alcoholism, withdrawal seizures and hypertension. Critical Care: Authorized and Performed by: Anjali Quevedo DO Total critical care time: approximately 30 minutes Due to a high probability of clinically significant, life threatening deterioration, the patient required my highest level of preparedness to intervene emergently and I personally spent this critical care time directly and personally managing the patient. This critical care time included obtaining a history; examining the patient; pulse oximetry; ventilator management if necessary; ordering and review of studies; arranging urgent treatment with development of a management plan; evaluation of patient's response to treatment; frequent reassessment; discussion with patient/family; and, discussions with other providers. This critical care time was performed to assess and manage the high probability of imminent, life-threatening deterioration that could result in multi-organ failure. It was exclusive of separately billable procedures and treating other patients and teaching time. Please see MDM section and the rest of the note for further information on patient assessment and treatment. Dragon Disclaimer: Oz Disclaimer: This electronic medical record was generated, in whole or in part, using a voice recognition dictation system. Departure Departure Impression: Primary Impression: Cardiac arrest Additional Impression: Hypoglycemia Disposition: 20 Condition: Referrals: NO PCP (PCP) ANJALI QUEVEDO DO Apr 25, 2021 21:18
== END 2021-04-25 23:10 ==
LOC: ER 20:30
DX: I46.9 Cardiac arrest, cause unspecified (principal); E16.2 Hypoglycemia, unspecified; I10 Essential (primary) hypertension; Z87.891 Personal history of nicotine dependence; Z88.0 Allergy status to penicillin
CPT/HCPCS: 99291; J0171; J0330; J2310; J3490; 99285-25